=== PATIENT | male | born 1955 | race Caucasian/White ===

== ENCOUNTER 2019-09-26 01:25 | Inpatient (IN) | payer MEDICARE, OTHER, SELFPAY ==
[2019-09-26] VITALS (58 sets, daily range): BP systolic 77–156; BP diastolic 62–131; PULSE 85–166; RESP 13–36; TEMP 36–37.6; O2SAT 90–100; BMI 23.6; BMI 22.2
--- NOTE | 2019-09-26 01:32 | ED.RN ---
DR MCCOY ASKED FOR EKG, NO OLD EKGS IN MUSE
[2019-09-26] MEDS: Ipratropium/Albuterol Sulfate 3 ML AMPUL.NEB INHALATION ×6 (01:33→23:32)
--- NOTE | 2019-09-26 01:33 | EKG12_ITS ---
Test Reason : DYSRHYTHMIA Blood Pressure : / mmHG Vent. Rate : 158 BPM Atrial Rate : 158 BPM P-R Int : 136 ms QRS Dur : 078 ms QT Int : 322 ms P-R-T Axes : 079 105 083 degrees QTc Int : 522 ms Sinus tachycardia Indeterminate axis Pulmonary disease pattern Abnormal ECG Confirmed by NOELLE BUTT, NIELS ([id number]), story editor CHARBEL FALCON ([id number]) on 09/28/2019 9:31:22 AM Referred By: RAMEZ Confirmed By:MARLON DRAKE MD
--- NOTE | 2019-09-26 01:33 | RAD_ITS ---
STUDY: X-RAY CHEST REASON FOR EXAM: Male, 64 years old. Et and ogo tube placements TECHNIQUE: Single AP portable view of the chest. 2 images COMPARISON: None. FINDINGS: The endotracheal tube tip is 5.7 cm superior to the tee. The enteric tube tip on the first image is at the distal esophageal level, advanced into the body of the stomach with its tip and distal sidehole on image 2 time 0246 hours. Axillary surgical clips left. There is hyperinflation. Diffuse interstitial lung disease, areas of hyperinflation and airspace opacification in the lower lung parenchyma right greater than left. There is no demonstrated pleural abnormality. Normal size heart. Normal mediastinum and celeste. Normal visualized pulmonary arteries. There is atherosclerosis of the aortic arch. Age-appropriate thoracic spine. Normal visualized ribs, clavicles, and shoulders. There is no demonstrated abnormality of the visualized soft tissue structures of the upper abdomen. RAD/Chest 1 View (Portable) IMPRESSION: Lines in good position. Hyperinflation, chronic interstitial lung disease, superimposed inflammatory/infectious etiology off mid and lower lung parenchyma right greater than left lung. Electronically Signed: Amparo Bah MD at 3:17 EDT , Service support ,
[2019-09-26 01:48] LABS: Absolute Lymphocyte Count 9.03 X10^3/uL (0.83-4.51); Absolute Neutrophil Count 5.1 X10^3/uL (2.0-7.7); Basophil# 0.12 X10^3/uL; Basophil% 0.7 % (0-1); Eosinophil# 1.59 X10^3/uL; Eosinophils% 9.3 % (0-5); Hematocrit 54.1 % (40-54); Hemoglobin 16.9 g/dL (13.0-16.5); Lymphocyte # 9.03 X10^3/ul (4.0); Lymphocyte % 52.7 % (19-41); Mean Corp Hgb Conc 31.2 g/dL (32-36); Mean Corpuscular Hgb 28.5 pg (27.0-32.0); Mean Corpuscular Volume 91.2 fL (80-94); Mean Platelet Vol. 9.9 fl (6.2-12.0); Monocyte% 6.4 % (0-10); NRBC Flagged by Analyzer 0 % (0-5); Neutrophil # 5.09 X10^3/uL (2.7-7.7); Neutrophil % 29.7 % (47-70); POSITIVE DIFFERENTIAL YES; POSITIVE MORPHOLOGY YES; Platelet Count 249 K/mm3 (150-450); RBC Distribution Width SD 49.9 fl (35.1-43.9); Red Blood Count 5.93 M/mm3 (4.6-6.2); White Blood Count 17.1 K/mm3 (4.4-11.0)
[2019-09-26] MEDS: MethylPREDNISolone 125 MG/2 ML Vial IV (01:55)
[2019-09-26 01:56] LABS: Differential Indicated SCAN CRITERIA MET
[2019-09-26] MEDS: Succinylcholine Chloride 200 MG/10 ML Vial 100 MG IV (01:57)
[2019-09-26] MEDS: fentaNYL 100 MCG/2 ML Ampul 50 MCG IV (02:04)
[2019-09-26] MEDS: fentaNYL drip 100 ML 5 MCG IV (02:04)
--- NOTE | 2019-09-26 02:10 | ED.RN ---
Updated Pat Robbins, PTs daughter who is POA update on pt and sent her to registration.
[2019-09-26 02:18] LABS: Platelet Estimate ADEQUATE (ADEQ); Red Cell Morphology N CHROM NORMAL (NORM C&C)
[2019-09-26 02:19] LABS: Anion Gap 7 (5-15); Anisocytosis RARE; BUN 28 mg/dL (7-18); BUN/Creat Ratio 25.7 RATIO (10-20); Calcium,Total 8.9 mg/dL (8.5-10.1); Chloride 107 mmol/L (98-107); Creatinine, Serum 1.09 mg/dL (0.70-1.30); EST Glomerular Filtration Rate 72 mL/min (>60); Est Glom Filt Rate - Afr Amer 87 mL/min (>60); Estimated Creatinine Clearance 69.76 ml/min; Glucose 252 mg/dL (74-106); Macrocytosis RARE; Potassium 4.7 mmol/L (3.5-5.1); Sodium Level 140 mmol/L (136-145)
[2019-09-26 02:20] LABS: Lactic Acid 3.7 mmol/L (0.4-1.9)
[2019-09-26] MEDS: HYDROmorphone 1 MG/ML Syringe 2 MG IV (02:25)
--- NOTE | 2019-09-26 02:29 | ED.RN ---
CALLED [facility] TO NOTIFY OF THE NEED FOR ADMISSION, SPOKE TO EDILBERTO IN BED CONTROL. SHE REQUESTED REPORT BE FAXED WHEN DONE.
[2019-09-26] MEDS: Propofol 10MG/Ml 1,000 MG/100 ML Bottle 4.5 MG CONT INF (02:42)
--- NOTE | 2019-09-26 02:51 | ED.DCSUM_ITS ---
- ER Visit Summary Date of Service: 09/26/19 Chief Complaint: Shortness of breath History of Present Illness: The patient is a 64 M who goes to the [facility]. He reports that he lives in [place], but he has been in [place] visiting his daughter for the past 3 to 4 days. He denies sick contacts. He reports he has a cough productive of clear sputum for the past week. He denies any fever or chills. He reports he has shortness of breath that began today. He states that it is severe. He also complains of generalized weakness. Patient has a history of COPD., But has never been this bad before. He is not on home O2. When EMS arrived to pick him up his pulse ox was 60% on room air. States that he quit smoking 1 month ago. Physical Examination: Vitals: 96.8, 156/96, 163, 36, 95% on a nonrebreather. General: Well-nourished and well-developed. Head: Normocephalic atraumatic. Neck: Supple, no lymphadenopathy. No JVD. Nontender. Cardiovascular: Tachycardic regular rhythm. No murmurs. Respiratory: Severe respiratory distress. Wheezing bilaterally with greatly dec reased air movement. Abdominal: Soft, nontender, nondistended, normal bowel sounds. No guarding, rebound, or peritoneal signs. Back: Nontender. Extremities: Nontender, no edema. Skin: Normal color, no rash. Neurologic: Alert and oriented ?3. Cranial nerves II through XII are intact. Normal strength and sensation. Psych: Normal affect. Test Results: EKG is sinus tach at [address] changes. Chest x-ray shows bilateral infiltrates concerning for COVID-19, ET tube is in place. CBC shows a white count of 17.1 with 30 segmented neutrophils, 9 eosinophils, and 53 lymphocytes. H&H is 16.9 and 54.1. Chem-7 shows a BUN of 28 and glucose 252. Lactic acid is 3.7. Influenza is negative. Troponin is 0.205. Emergency Department Course and Treatment: Patient was given albuterol and Atrovent aerosol and his pulse ox actually decreased to 85% on a nonrebreather. He does want to be full code. He was given ketamine and succinylcholine IV and was intubated on the first attempt. His pulse ox never went below 85%. He was then given more albuterol aerosols. He was given fentanyl and Dilaudid IV. He was given Rocephin and Zithromax IV. Following the intubation the patient's blood pressure dropped into the 70s systolic. He was started on Levophed and had a central line placed. He was not given a 30 cc/kg bolus because his chest x-ray is concerning for COVID-19. Treatment Plan: Patient was discussed with the [facility]. At this time they would like him to be admitted here. He was discussed with Dr. Graf. He will be admitted to the ICU for further evaluation and treatment. Disposition: Admitted in critical condition. Impression: 1. Respiratory failure. 2. Intubation by ED physician. 3. Suspected COVID-19 infection. 4. COPD. 5. Hypoxia. 6. Right internal jugular central line by ED physician. 7. Septic shock. 8. Critical care time 45 minutes. Procedure: The patient was prepped and draped in the usual sterile fashion. I wore a cap, gown, and mask. The right internal jugular was accessed under direct visualization with the site right. The vessel was accessed on the first attempt. The central line was then placed with Seldinger technique. Normal blood return and flush in all 3 ports. The patient tolerated it well. This note was generated with Snapstream dictation software. It may contain incorrect words, spelling, and punctuation that were not noted in review of the chart prior to signing ED Disposition - Plan for ED Patient: [facility]errals: [facility] [Primary Care Provider] -
--- NOTE | 2019-09-26 03:05 | ED.RN ---
REQUESTED REPORT FAXED TO EDILBERTO AT THE [facility]
[2019-09-26 03:13] LABS: International Normalized Ratio 1.1; Prothrombin Time (Protime)PT. 13.3 SECONDS (11.7-14.9)
--- NOTE | 2019-09-26 03:14 | CPS ---
Pt intubated using glidoscope, then put directly on vent, did not bag pt.
[2019-09-26 03:15] LABS: Partial Thromboplast Time 29.1 Seconds (24.1-36.2)
[2019-09-26 03:21] LABS: AST(SGOT) 106 U/L (15-37); Alanine Aminotransfer ALT/SGPT 106 U/L (16-61); Albumin, Serum 4.1 g/dL (3.2-5.0); Alkaline Phosphatase 202 U/L (45-117); Bilirubin, Direct 0.19 mg/dL (0.00-0.30); Protein, Total 8.1 g/dL (6.4-8.2)
[2019-09-26 03:28] LABS: Bacteria 0 SEEN /hpf (None Seen); Glucose, Dipstick Normal (Normal); Ketone-Dipstick Negative (Negative); Leukocyte Esterase-Dipstick Negative /ul (Negative); Mucous, Urine 0 SEEN /hpf (<or=2+); Nitrite-Dipstick Negative (Negative); Occult Blood-Urine 150 /ul (Negative); Protein-Dipstick 500 mg/dl (Negative); Specific Gravity, Urine 1.025 (1.002-1.030); Squamous Epithelial Cells - UA 0 SEEN /hpf (0-5); Urine Bilirubin Dipstick Negative (Negative); Urine Urobilinogen 1 mg/dl (Normal)
[2019-09-26 03:30] LABS: Color, Urine Yellow (Yellow); Urine Clarity Sl Cldy (Clear)
--- NOTE | 2019-09-26 03:36 | RAD_ITS ---
STUDY: X-RAY CHEST REASON FOR EXAM: Male, 64 years old. Line placement TECHNIQUE: Single AP portable view of the chest. COMPARISON: September 26, 2019 FINDINGS: Endotracheal tube is approximately 5 cm superior to the tee. The enteric tube courses inferior to the left diaphragm, its tip is not included or visualized. Interval placement of right internal jugular venous access catheter with tip over the superior vena cava position. There is no demonstrated pneumothorax. Right greater than left interstitial opacification, areas of hyperinflation. More dense airspace disease in the right medial lung base persists. There is no demonstrated pleural abnormality. Normal size heart. Normal mediastinum and celeste. Normal visualized pulmonary arteries. Normal visualized aortic arch and descending thoracic aorta. Age-appropriate thoracic spine. There are degenerative changes of the acromioclavicular joints. There is no demonstrated abnormality of the visualized soft tissue structures of the upper abdomen. RAD/CXR for Line Placement IMPRESSION: Lines in good position. Right greater than left airspace disease superimposed on chronic interstitial lung disease and component of COPD. Electronically Signed: Amparo Bah MD at 4:46 EDT , Service support ,
[2019-09-26 03:37] LABS: Coarse Granular Cast 0-5 SEEN /lpf (0-5 /lpf); Fine Granular Cast- Urine 0-5 SEEN /lpf (0-5); Hyaline Cast 5-10 SEEN /lpf (0-5)
[2019-09-26 03:38] LABS: Amorphous Sediment 1+; Red Blood Cells-Urine 10-25 SEEN /hpf (0-5); White Blood Cells 0-5 SEEN /hpf (0-5)
--- NOTE | 2019-09-26 04:18 | PCM.HP.STD ---
Problem List (1) Septic shock Status: Acute (2) Acute respiratory failure with hypoxia Status: Acute (3) Suspected 2019 novel coronavirus infection Status: Acute (4) Cardiac enzymes elevated Status: Acute (5) Transaminitis Status: Acute (6) Hyperglycemia Status: Acute (7) CAD (coronary artery disease) Status: Chronic Qualifiers: Coronary Disease-Associated Artery/Lesion type: unspecified vessel or lesion type [place] vs. transplanted heart: unspecified whether [place] or transplanted heart Associated angina: angina presence unspecified Qualified Code(s): I25.10 - Atherosclerotic heart disease of [place] coronary artery without angina pectoris (8) HTN (hypertension) Status: Chronic Qualifiers: Hypertension type: essential hypertension Qualified Code(s): I10 - Essential (primary) hypertension (9) HLD (hyperlipidemia) Status: Chronic Qualifiers: Hyperlipidemia type: unspecified Qualified Code(s): E78.5 - Hyperlipidemia, unspecified (10) CLL (chronic lymphocytic leukemia) Status: Chronic (11) Former tobacco use Status: Chronic (12) History of alcohol abuse Status: Chronic History of Present Illness Date of Admission: 09/26/19 Chief Complaint: Cough, dyspnea The patient is a 64 y/o M w/ PMHx: Chronic COPD, Former Tobacco use, CAD s/p PCI x 1, HTN, HLD, CLL who presents to the [facility] ED on 09/26/19 with history of ongoing cough with only clear sputum over the last week with no specific fevers or chills but dyspnea progressively worsening and more severe on day of ED presentation with increased generalized weakness and fatigue, currently visiting his daughter in [place] over the last 3 to 4 days noted to be very hypoxic at 60% on room air upon EMS initial evaluation. Per discussion with daughter patient was hospitalized approximately 1 month prior and at that time had been intubated for at least 2 to 3 days with bilateral pneumonia. On evening prior to day of ED presentation, daughter noted that her father had been very dyspneic and she initially felt this was possibly a panic attack which she has a history of however it was ongoing for at least 40 minutes prompting eventual call to EMS. In the ED work-up included T 96.8, heart rate initially 163, BP 156/131, 36 respiratory rate 36, 95% on a nonrebreather with eventual intubation with repeat blood pressure prior to admission 80/66 requiring initiation of pressor therapy CBC with WBC 17.1, hemoglobin 16.9, platelet 249 with left shift, unremarkable coags, CMP with BUN/creatinine 28/1.09, glucose 252, lactic acid 3.7, AST/ALT 106/106, alk phos 202, troponin 0.205, urinalysis with specific gravity 1.025, protein 500, occult blood 150, RBC 10-25, 0 urine bacteria, blood culture x2 pending per ED, rapid influenza negative, respiratory viral panel pending, chest x-ray with hyperinflation with chronic interstitial lung disease superimposed on inflammatory/infectious etiology of mid and lower lung parenchyma right greater than left per ED. in the ED patient ministered succinylcholine, Solu-Medrol 125 mg IV x1, ketamine, Dilaudid, fentanyl, DuoNeb and albuterol therapies initiation of propofol and norepinephrine in addition to administration of azithromycin. Past Medical History Past Medical History (Chronic Problems): Chronic Problems CAD (coronary artery disease) (Chronic) HTN (hypertension) (Chronic) HLD (hyperlipidemia) (Chronic) CLL (chronic lymphocytic leukemia) (Chronic) Former tobacco use (Chronic) History of alcohol abuse (Chronic) Allergies Iodine and Iodide Containing Produc Allergy (Verified 09/26/19 01:26) Angioedema Home Medications: Ambulatory Orders Medication Instructions Recorded Aspirin [Aspirin, Baby] 81 mg PO DAILY@0800 09/26/19 Atorvastatin Calcium 80 mg PO QHS 09/26/19 Clopidogrel Bisulfate [Plavix] 75 mg PO DAILY 09/26/19 Entecavir 0.5 mg PO DAILY 09/26/19 Metoprolol Succinate 25 mg PO DAILY 09/26/19 Penicillin Vk [Pen-Vee K , 500 mg PO 4X/DAY 09/26/19 V-Cillin K] Surgical History: - - PCI x1, dental surgery. Psychiatric History: Anxiety Lives: Spouse/ Significant Other - Patient lives in [place] with his ex-. Smoking Status: Former smoker - Patient quit cigarette tobacco usage approximately 1 month prior to current presentation. Tobacco Use: Non-smoker Alcohol: Sober - Patient has been sober x4 months. Drugs: None - *Family History Maternal History Items: - - Patient per daughter without any market maternal family history including heart disease, diabetes or cancer. Paternal History Items: Pulmonary Disease - Father with significant pulmonary history, COPD, tobacco concurrent usage. Review of Systems Constitutional: Reports: Malaise, Weakness, Fatigue. Denies: Anorexia, Chills, Fever, Weight Change HEENT: Denies: Head Aches, Sinus Congestion, Sinus Drainage Cardiovascular: Denies: Chest Pain, Palpitations Respiratory: Reports: Cough, Shortness of Breath, Shortness of breath at rest, Shortness of breath upon exertion, Sputum production, Wheezing Gastrointestinal: Reports: Nausea. Denies: Abdominal Pain, Vomiting Genitourinary: Denies: Dysuria Musculoskeletal: Reports: Joint Pain. Denies: Joint Tenderness Skin: Denies: Rash, Wounds Neurological: Denies: Numbness, Tingling, Focal weakness Psychiatric: Reports: Anxiety. Denies: Depression, Homicidal Ideations, Suicidal Ideations Hematologic/ Lymphatic: Denies: Easy Bruising, Easy Bleeding VTE Information - Inpt Only VTE Present on Admission: No VTE Mechan Device Prophylaxis: SCD's VTE Pharm Prophylaxis ordered?: Yes Patient Problems: Active and Suspected Problems Septic shock (Acute) Acute respiratory failure with hypoxia (Acute) Suspected 2019 novel coronavirus infection (Acute) Cardiac enzymes elevated (Acute) Transaminitis (Acute) Hyperglycemia (Acute) Subjective: Patient intubated, sedated, seated upright in the ED bed, no acute distress currently. Objective: Physical Examination: General: Sedated, intubated, no acute distress currently, maintained in the ED. Skin: normal color, turgor, no icterus, cyanosis except bilateral lower extremity skin changes, possibly scarring. HEENT: AT/NC, EOM unable to be assessed, PERRLA, dry MM, intubated, no carotid bruits or JVD noted. Lungs: Diminished breath sounds throughout, greater bilateral bases, intubated, sedated, occasional end expiratory wheeze although very minimal, no obvious rhonchi or rales. Heart: Tachycardic with regular rhythm; no gallop, rub audible. Abdomen: soft, NTTP, ND, normal BS, no HSM. Extremities: no cyanosis, clubbing, or edema. Neurological: Patient intubated, sedated, not awake or alert, unable to answer any orientation questions, cognitive function is not his baseline; pupils equally reactive to light and accomodation; cranial nerves unable to be assessed well given intubated, sedated status, strength accordingly severely global decreased. Psychiatric: affect appears flat, lethargic, no acute evidence of depressive or anxiety feelings. - Physical Exam Vitals/I&O's: Vital Signs Temp Pulse Resp BP Pulse Ox 97.4 F L 130 H 18 109/89 H 98 09/26/19 04:00 09/26/19 04:18 09/26/19 04:18 09/26/19 04:18 09/26/19 04:18 Oxygen Delivery Method Mechanical Ventilator Weight: 164 lb 10.965 oz Body Mass Index (BMI) 23.6 Intake and Output for Last 24 Hours 09/24/19 09/25/19 09/26/19 23:59 23:59 23:59 Intake Total 57.53 / 57.53 Balance 57.53 / 57.53 Microbiology Past 72 Hours 09/26/19 01:40 Mucosa - Nasopharyngeal Influenza Types A,B Direct FA (TANVIR) - Final Laboratory Results 09/26/19 01:30: WBC 17.1 H, RBC 5.93, Hgb 16.9 H, Hct 54.1 H, MCV 91.2, MCH 28.5, MCHC 31.2 L, RDW Std Deviation 49.9 H, RDW Coeff of [place] 15.0 H, Plt Count 249, MPV 9.9, Immature Gran % (Auto) 1.200 H, Neut % (Auto) 29.7 L, Lymph % (Auto) 52.7 H, [place] % (Auto) 6.4, Eos % (Auto) 9.3 H, Baso % (Auto) 0.7, Absolute Neuts (auto) 5.1, Absolute Lymphs (auto) 9.03 H, Nucleated RBC % 0, Differential Comment SEE COMMENT, Diff Path Review May foll, Platelet Estimate ADEQUATE, RBC Morphology N CHROM, Anisocytosis RARE, Macrocytosis RARE 09/26/19 01:30: Sodium 140, Potassium 4.7, Chloride 107, Carbon Dioxide 26.0, Anion Gap 7, BUN 28 H, Creatinine 1.09, Estim Creat Clear Calc 69.76, Est GFR (MDRD) Af Amer 87, Est GFR (MDRD) Non-Af 72, BUN/Creatinine Ratio 25.7 H, Glucose 252 H, Calcium 8.9, Troponin I 0.205 H 09/26/19 01:30: Total Bilirubin 0.50, Direct Bilirubin 0.19, AST 106 H, ALT 106 H, Alkaline Phosphatase 202 H, Total Protein 8.1, Albumin 4.1, Globulin 4.0 09/26/19 01:30: PT 13.3, INR 1.1, APTT 29.1 09/26/19 01:32: Lactic Acid 3.7 H* 09/26/19 03:01: Urine Color Yellow, Urine Clarity Sl Cldy, Urine pH 6.0, Ur Specific [place] 1.025, Urine Protein 500 H, Urine Glucose (UA) Normal, Urine Ketones Negative, Urine Occult Blood 150 H, Urine Nitrite Negative, Urine Bilirubin Negative, Urine Urobilinogen 1 H, Ur Leukocyte Esterase Negative, Urine RBC 10-25 SEEN, Urine WBC 0-5 SEEN, Ur Squamous Epith Cells 0 SEEN, Amorphous Sediment 1+, Urine Bacteria 0 SEEN, Hyaline Casts 5-10 SEEN, Fine Granular Casts 0-5 SEEN, Coarse Granular Casts 0-5 SEEN, Urine Mucus 0 SEEN Current Medications Fentanyl () 100 mls @ 5 mls/hr IV UD MAGGIE; Protocol Last Titration: 09/26/19 03:28 Dose: 75 mcg/hr, 7.5 mls/hr Documented by: Propofol (Diprivan) 1,000 mg in 100 mls @ 4.482 mls/hr CONT INF .Q12H MAGGIE; Protocol Last Titration: 09/26/19 04:05 Dose: 10 mcg/kg/min, 4.5 mls/hr Documented by: Norepinephrine Bitartrate 8 mg (/ Sodium Chloride) 250 mls @ 9.375 mls/hr CONT INF .[id number] MAGGIE; Protocol Last Admin: 09/26/19 03:46 Dose: 5 mcg/min, 9.4 mls/hr Documented by: Assessment/Plan All Active Problems Septic shock (Acute) Acute respiratory failure with hypoxia (Acute) Suspected 2018 novel coronavirus infection (Acute) Cardiac enzymes elevated (Acute) Transaminitis (Acute) Hyperglycemia (Acute) The patient is a 64 y/o M w/ PMHx: Chronic COPD, Former Tobacco use, CAD s/p PCI x 1, HTN, HLD, CLL who presents to the [facility] ED on 09/26/19 with history of ongoing cough with only clear sputum over the last week with no specific fevers or chills but dyspnea progressively worsening and more severe on day of ED presentation with increased generalized weakness and fatigue, currently visiting his daughter in [place] over the last 3 to 4 days noted to be very hypoxic at 60% on room air upon EMS initial evaluation. 1. Acute Septic Shock secondary to Acute Dyspnea, Cough with Bilateral Pneumonia secondary to Suspected Acute Viral Syndrome, COVID-19 complicated by Acute on Chronic COPD Exacerbation: Will admit to the the ICU, continue ICU consultation, maintain intubated, sedated status, continue MDI Atrovent and Albuterol, maintain on IV vancomycin and Zosyn given recent hospitalization with intubation with MRSA screen with de-escalation off antibiotic therapy if appropriate, HOB, IS parameters w/ pending sputum cultures and urine antigens as well as respiratory panel pending per ED, will obtain procalcitonin, CRP, CPK, Ferritin, LDH, EKG w/ sinus tachycardia nonspecific ST changes and trop 0.205 thus cycle cardiac enzymes, repeat EKG in AM consideration for echocardiogram pending trend with therapeutic Lovenox, continue supportive care including q 2 hour turning including prone given no prone bed availability and judicious hydration, closely monitor for worsening status for ARDS and multiorgan failure, if negative respiratory viral panel would plan to obtain COVID-19 testing and if worsening status would consider initiation of hydroxychloroquine with close EKG monitoring for QT prolongation with trending of the liver functions. Bld cx x 2 obtained in the ED. 2. Indeterminate cardiac enzymes, likely secondary to acute presentation #1, will maintain on cardiac telemetry, trend cardiac enzymes, repeat EKG as needed, consider echocardiogram especially given underlying cardiac history, maintain on aspirin, therapeutic lovenox pending cardiac trending. 3. Transaminitis: Admission AST/ALT 106/106, alk phos 202, likely secondary to #1, will trend CMP. 4. Hyperglycemia with unclear diabetes mellitus type 2 history: Admission glucose 252, unclear if diabetic, will obtain hemoglobin A1c and in interim we will maintain on every 6 hours Accu-Cheks with insulin sliding scale. 5. CAD: Status post PCI, will continue patient home aspirin, Plavix, holding metoprolol given Potenza presentation. 6. Hypertension: Holding patient regimen given hypotension, maintained on pressor therapy. 7. Hyperlipidemia: Continue home statin regimen. 8. CLL: We will continue patient home entecavir regimen. 9. Tobacco Abuse: Encouraged to need tobacco cessation, quit approximately 1 month prior. 10. DVT prophylaxis: SCDs, Lovenox. 11. CODE status: Patient HCPLEENA is his daughter who lives in [place] and living will is currently in place. Discussed CODE status at length including difference between FULL code, DNR-CCA and DNR-CC status. Following discussions about the differences in these status, requested continuation of full CODE STATUS now however she notes that if he declines she would prefer to transition to DNR CC status. Advanced Care Planning Face to Face Time: 16 minutes. Inpatient E&M: 82872 Init Hosp L3 Procedures: 55279 Advncd Care Plan 30 Min
[2019-09-26 05:41] LABS: Reflex Lactate? Y
[2019-09-26 05:50] LABS: Blood Gas Specimen Type ART; SITE L RADIAL
[2019-09-26 05:51] LABS: Allen Test POS; Mode A-C; O2 Delivery Device Vent; RR 16; Vt 400
[2019-09-26 05:52] LABS: FI02 100; PEEP 5; PO2 218 mmHG (75-100); Time Given 352; pCO2 78.7 mmHg (35-45); pH 7.13 (7.35-7.45)
[2019-09-26 05:53] LABS: Base Excess -3 mmol/L (-2 to +2); Bicarbonate 26.4 mmol/L (22-26); SO2 99 % (95-99); Total Carbon Dioxide 29 mmol/L
[2019-09-26] MEDS: 0.9% Saline Lock 10 ML Syringe IV ×3 (06:08→09:54)
[2019-09-26] MEDS: Enoxaparin 80 MG/0.8 ML Syringe 70 MG SC ×2 (06:08→20:50)
--- NOTE | 2019-09-26 06:13 | PCM.CON.CC ---
Reason for Consult Date of Consultation: 09/26/19 Reason for Consultation: Acute combined respiratory failure History of Present Illness: The patient is a 64-year-old male, with a history as outlined below, who presented to the emergency department on September 25 with complaints of shortness of breath, cough, generalized malaise and weakness, fatigue and hypoxemia. The patient is regularly followed through the [facility] system. He apparently has an established diagnosis of COPD of unknown severity, tobacco dependency which is currently in remission, coronary artery disease status post prior PCI, hepatitis B, hypertension, hyperlipidemia and CLL. Per discussion with the admitting hospitalist, the patient was admitted to a [facility] 1 month ago, during which time, he was intubated for a short period of time due to bilateral pneumonia. The patient has not on home supplemental oxygen at his baseline. On presentation to the emergency department, the patient was initially noted to be afebrile, but was tachycardic, tachypneic and hypoxemic. Laboratory evaluation revealed an elevated white blood cell count to 17,000. Hemoglobin was elevated to 16.9 g/dL. The patient also had an elevated peripheral eosinophil count. Coagulation profile was within normal limits. Initial arterial blood gas obtained shortly after intubation revealed a pH of 7.13 with a corresponding PCO2 of 78 and PO2 of 218. Chemistry profile was largely unremarkable. Initial lactate was elevated to 3.7. AST and ALT were increased to 106. Initial troponin was elevated to 0.205. Plain film chest x-ray revealed evidence of bilateral airspace disease, which appeared to be superimposed on a background of chronic interstitial changes. The patient did require emergent intubation in the emergency department. He was noted to be hypotensive following intubation, which was likely secondary to the medications utilized for the procedure. The patient was placed on broad-spectrum antimicrobials and admitted to the medical intensive care unit for further management. Past Medical History Past Medical History (Chronic Problems): Chronic Problems CAD (coronary artery disease) (Chronic) HTN (hypertension) (Chronic) HLD (hyperlipidemia) (Chronic) CLL (chronic lymphocytic leukemia) (Chronic) Former tobacco use (Chronic) History of alcohol abuse (Chronic) Allergies Iodine and Iodide Containing Produc Allergy (Verified 09/26/19 01:26) Angioedema Home Medications: Ambulatory Orders Medication Instructions Recorded Aspirin [Aspirin, Baby] 81 mg PO DAILY@0800 09/26/19 Atorvastatin Calcium 80 mg PO QHS 09/26/19 Clopidogrel Bisulfate [Plavix] 75 mg PO DAILY 09/26/19 Entecavir 0.5 mg PO DAILY 09/26/19 Metoprolol Succinate 25 mg PO DAILY 09/26/19 Penicillin Vk [Pen-Vee K , 500 mg PO 4X/DAY 09/26/19 V-Cillin K] Surgical History: - - PCI x1, dental surgery. Psychiatric History: Anxiety Lives: Spouse/ Significant Other - Patient lives in [place] with his ex-. Smoking Status: Former smoker - Patient quit cigarette tobacco usage approximately 1 month prior to current presentation. Tobacco Use: Non-smoker Alcohol: Sober - Patient has been sober x4 months. Drugs: None - *Family History Maternal History Items: - - Patient per daughter without any market maternal family history including heart disease, diabetes or cancer. Paternal History Items: Pulmonary Disease - Father with significant pulmonary history, COPD, tobacco concurrent usage. Review of Systems Unable to obtain accurate/complete ROS d/t: Due to current intubation and mechanical ventilation status. Patient Problems: Active and Suspected Problems Septic shock (Acute) Acute respiratory failure with hypoxia (Acute) Suspected 2019 novel coronavirus infection (Acute) Cardiac enzymes elevated (Acute) Transaminitis (Acute) Hyperglycemia (Acute) Objective: The patient's most recent lab work, culture data and imaging studies have all been personally reviewed. Strep and urine Legionella antigens were negative. Respiratory viral panel was negative. - Physical Exam Vitals/I&O's: Vital Signs Temp Pulse Resp BP Pulse Ox 97.8 F 121 H 20 H 90/72 98 09/26/19 04:25 09/26/19 04:30 09/26/19 04:30 09/26/19 04:25 09/26/19 04:30 Oxygen Delivery Method Mechanical Ventilator Weight: 154 lb 15.759 oz Body Mass Index (BMI) 23.6 Intake and Output for Last 24 Hours 09/24/19 09/25/19 09/26/19 23:59 23:59 23:59 Intake Total 312.53 / 312.53 Balance 312.53 / 312.53 General: - - Intubated, sedated and mechanically ventilated. No ventilator dyssynchrony. HEENT: Atraumatic, PERRLA, Normocephalic Oral: No Gingival or Mucosal Lesions/ Ulcerations, - - Endotracheal and OG tubes in place Neck: Supple, No Nodes, Trachea Midline, - - Right IJ central venous catheter in place Lungs: No rhonchi, No wheeze, No rales, Diminished Cardiovascular: Regular rate, Regular Rhythm, Normal S1, Normal S2, No murmurs Abdomen: Bowel Sounds Present, Soft, Non Tender Extremities: No clubbing, No cyanosis, No edema Skin: No breakdown Musculoskeletal: No Muscle Wasting Lymphatic: No Cervical, Supraclavicular, or Inguinal Adenopathy Neurological: - - No focal neurological deficits. The patient is currently sedated with a RASS of -1. Labs (Last 48 Hours) 09/26/19 09/26/19 09/26/19 01:30 01:30 01:30 WBC 17.1 H RBC 5.93 Hgb 16.9 H Hct 54.1 H MCV 91.2 MCH 28.5 MCHC 31.2 L RDW Std Deviation 49.9 H RDW Coeff of [place] 15.0 H Plt Count 249 MPV 9.9 Immature Gran % (Auto) 1.200 H Neut % (Auto) 29.7 L Lymph % (Auto) 52.7 H [place] % (Auto) 6.4 Eos % (Auto) 9.3 H Baso % (Auto) 0.7 Absolute Neuts (auto) 5.1 Absolute Lymphs (auto) 9.03 H Nucleated RBC % 0 Differential Comment SEE COMMENT Diff Path Review May foll Platelet Estimate ADEQUATE RBC Morphology N CHROM Anisocytosis RARE Macrocytosis RARE PT INR APTT Specimen Type Sample Site pH Bicarbonate Actual POC Total CO2 Base Excess O2 Saturation O2 % ABG pCO2 ABG pO2 Jayesh Test Respiration Rate O2 Delivery Device Vent Mode Tidal Volume POC PEEP Blood Gas Notified Whom Blood Gas Notified Time Sodium 140 Potassium 4.7 Chloride 107 Carbon Dioxide 26.0 Anion Gap 7 BUN 28 H Creatinine 1.09 Estim Creat Clear Calc 69.76 Est GFR (MDRD) Af Amer 87 Est GFR (MDRD) Non-Af 72 BUN/Creatinine Ratio 25.7 H Glucose 252 H Lactic Acid Calcium 8.9 Magnesium Ferritin Total Bilirubin 0.50 Direct Bilirubin 0.19 AST 106 H ALT 106 H Alkaline Phosphatase 202 H Lactate Dehydrogenase Troponin I 0.205 H C-React Prot Ext Range Total Protein 8.1 Albumin 4.1 Globulin 4.0 Urine Color Urine Clarity Urine pH Ur Specific [place] Urine Protein Urine Glucose (UA) Urine Ketones Urine Occult Blood Urine Nitrite Urine Bilirubin Urine Urobilinogen Ur Leukocyte Esterase Urine RBC Urine WBC Ur Squamous Epith Cells Amorphous Sediment Urine Bacteria Hyaline Casts Fine Granular Casts Coarse Granular Casts Urine Mucus MRSA (PCR) 09/26/19 09/26/19 09/26/19 01:30 01:32 03:01 WBC RBC Hgb Hct MCV MCH MCHC RDW Std Deviation RDW Coeff of [place] Plt Count MPV Immature Gran % (Auto) Neut % (Auto) Lymph % (Auto) [place] % (Auto) Eos % (Auto) Baso % (Auto) Absolute Neuts (auto) Absolute Lymphs (auto) Nucleated RBC % Differential Comment Diff Path Review Platelet Estimate RBC Morphology Anisocytosis Macrocytosis PT 13.3 INR 1.1 APTT 29.1 Specimen Type Sample Site pH Bicarbonate Actual POC Total CO2 Base Excess O2 Saturation O2 % ABG pCO2 ABG pO2 Jayesh Test Respiration Rate O2 Delivery Device Vent Mode Tidal Volume POC PEEP Blood Gas Notified Whom Blood Gas Notified Time Sodium Potassium Chloride Carbon Dioxide Anion Gap BUN Creatinine Estim Creat Clear Calc Est GFR (MDRD) Af Amer Est GFR (MDRD) Non-Af BUN/Creatinine Ratio Glucose Lactic Acid 3.7 H* Calcium Magnesium Ferritin Total Bilirubin Direct Bilirubin AST ALT Alkaline Phosphatase Lactate Dehydrogenase Troponin I C-React Prot Ext Range Total Protein Albumin Globulin Urine Color Yellow Urine Clarity Sl Cldy Urine pH 6.0 Ur Specific [place] 1.025 Urine Protein 500 H Urine Glucose (UA) Normal Urine Ketones Negative Urine Occult Blood 150 H Urine Nitrite Negative Urine Bilirubin Negative Urine Urobilinogen 1 H Ur Leukocyte Esterase Negative Urine RBC 10-25 SEEN Urine WBC 0-5 SEEN Ur Squamous Epith Cells 0 SEEN Amorphous Sediment 1+ Urine Bacteria 0 SEEN Hyaline Casts 5-10 SEEN Fine Granular Casts 0-5 SEEN Coarse Granular Casts 0-5 SEEN Urine Mucus 0 SEEN MRSA (PCR) 09/26/19 09/26/19 09/26/19 03:52 05:30 06:00 WBC RBC Hgb Hct MCV MCH MCHC RDW Std Deviation RDW Coeff of [place] Plt Count MPV Immature Gran % (Auto) Neut % (Auto) Lymph % (Auto) [place] % (Auto) Eos % (Auto) Baso % (Auto) Absolute Neuts (auto) Absolute Lymphs (auto) Nucleated RBC % Differential Comment Diff Path Review Platelet Estimate RBC Morphology Anisocytosis Macrocytosis PT INR APTT Specimen Type ART Sample Site L RADIAL pH 7.13 L* Bicarbonate Actual 26.4 H POC Total CO2 29 Base Excess -3 L O2 Saturation 99 O2 % 100 ABG pCO2 78.7 H* ABG pO2 218 H Jayesh Test POS Respiration Rate 16 O2 Delivery Device Vent Vent Mode A-C Tidal Volume 400 POC PEEP 5 Blood Gas Notified Whom ED MD Blood Gas Notified Time 352 Sodium Pending Potassium Pending Chloride Pending Carbon Dioxide Pending Anion Gap Pending BUN Pending Creatinine Pending Estim Creat Clear Calc Est GFR (MDRD) Af Amer Pending Est GFR (MDRD) Non-Af Pending BUN/Creatinine Ratio Pending Glucose Pending Lactic Acid Calcium Pending Magnesium Pending Ferritin Pending Total Bilirubin Pending Direct Bilirubin AST Pending ALT Pending Alkaline Phosphatase Pending Lactate Dehydrogenase Pending Troponin I Pending C-React Prot Ext Range Pending Total Protein Pending Albumin Pending Globulin Urine Color Urine Clarity Urine pH Ur Specific [place] Urine Protein Urine Glucose (UA) Urine Ketones Urine Occult Blood Urine Nitrite Urine Bilirubin Urine Urobilinogen Ur Leukocyte Esterase Urine RBC Urine WBC Ur Squamous Epith Cells Amorphous Sediment Urine Bacteria Hyaline Casts Fine Granular Casts Coarse Granular Casts Urine Mucus MRSA (PCR) Pending 09/26/19 06:00 WBC RBC Hgb Hct MCV MCH MCHC RDW Std Deviation RDW Coeff of [place] Plt Count MPV Immature Gran % (Auto) Neut % (Auto) Lymph % (Auto) [place] % (Auto) Eos % (Auto) Baso % (Auto) Absolute Neuts (auto) Absolute Lymphs (auto) Nucleated RBC % Differential Comment Diff Path Review Platelet Estimate RBC Morphology Anisocytosis Macrocytosis PT INR APTT Specimen Type Sample Site pH Bicarbonate Actual POC Total CO2 Base Excess O2 Saturation O2 % ABG pCO2 ABG pO2 Jayesh Test Respiration Rate O2 Delivery Device Vent Mode Tidal Volume POC PEEP Blood Gas Notified Whom Blood Gas Notified Time Sodium Potassium Chloride Carbon Dioxide Anion Gap BUN Creatinine Estim Creat Clear Calc Est GFR (MDRD) Af Amer Est GFR (MDRD) Non-Af BUN/Creatinine Ratio Glucose Lactic Acid Pending Calcium Magnesium Ferritin Total Bilirubin Direct Bilirubin AST ALT Alkaline Phosphatase Lactate Dehydrogenase Troponin I C-React Prot Ext Range Total Protein Albumin Globulin Urine Color Urine Clarity Urine pH Ur Specific [place] Urine Protein Urine Glucose (UA) Urine Ketones Urine Occult Blood Urine Nitrite Urine Bilirubin Urine Urobilinogen Ur Leukocyte Esterase Urine RBC Urine WBC Ur Squamous Epith Cells Amorphous Sediment Urine Bacteria Hyaline Casts Fine Granular Casts Coarse Granular Casts Urine Mucus MRSA (PCR) Microbiology 09/26/19 01:40 Mucosa - Nasopharyngeal Respiratory Panel (PCR) - Final 09/26/19 01:40 Mucosa - Nasopharyngeal Influenza Types A,B Direct FA (TANVIR) - Final Clinical Impression(s) from Imaging Studies Chest X-Ray 09/26/19 01:33 IMPRESSION: Lines in good position. Hyperinflation, chronic interstitial lung disease, superimposed inflammatory/infectious etiology off mid and lower lung parenchyma right greater than left lung. Electronically Signed: Amparo Bah MD at 3:17 EDT , Service support , Chest X-Ray 09/26/19 03:36 IMPRESSION: Lines in good position. Right greater than left airspace disease superimposed on chronic interstitial lung disease and component of COPD. Electronically Signed: Amparo Bah MD at 4:46 EDT , Service support , Current Medications Acetaminophen (Tylenol) 650 mg RECTAL Q4H PRN PRN PRN Reason: Pain Score 1-10/Temp > 100.7 F Acetaminophen (Tylenol) 650 mg PO Q6H PRN PRN PRN Reason: Pain Score 1-10/Temp > 100.7 F Albuterol Sulfate (Ventolin Aerosols) 2.5 mg INHALATION Q2H PRN PRN PRN Reason: Dyspnea, wheezing Albuterol/Ipratropium (Duoneb) 3 ml INHALATION Q4H.RT [facility] Aspirin (Aspirin, Baby) 81 mg PO DAILY@0800 [facility] Atorvastatin Calcium (Lipitor) 80 mg PO QHS [facility] Chlorhexidine Gluconate () 15 ml PO BID [facility] Clopidogrel Bisulfate (Plavix) 75 mg PO DAILY [facility] Dextrose (D50w Syringe) 0 gm IV X1 PRN; Protocol PRN Reason: Hypoglycemia Enoxaparin Sodium (Lovenox) 70 mg SC Q12@0600,1800 [facility] Last Admin: 09/26/19 06:08 Dose: 70 mg Documented by: Famotidine (Pepcid) 20 mg GT BID [facility] Glucagon () 1 mg IM .X1 PRN PRN Reason: Hypoglycemia Fentanyl () 100 mls @ 5 mls/hr IV UD [facility]; Protocol Last Titration: 09/26/19 03:28 Dose: 75 mcg/hr, 7.5 mls/hr Documented by: Propofol (Diprivan) 1,000 mg in 100 mls @ 4.482 mls/hr CONT INF .Q12H [facility]; Protocol Last Titration: 09/26/19 04:05 Dose: 10 mcg/kg/min, 4.5 mls/hr Documented by: Norepinephrine Bitartrate 8 mg (/ Sodium Chloride) 250 mls @ 9.375 mls/hr CONT INF .[id number] [facility]; Protocol Last Admin: 09/26/19 03:46 Dose: 5 mcg/min, 9.4 mls/hr Documented by: Vancomycin IV Pharmacy to Dose (1 ea/ Sodium Chloride) 500 mls @ 250 mls/hr IV PRN PRN; Protocol PRN Reason: Rx to Dose Vancomycin HCl 2,000 mg/ (Sodium Chloride) 540 mls @ 250 mls/hr IV X1 ONE Stop: 09/26/19 08:09 Sodium Chloride () 250 mls @ 15 mls/hr IV .[id number] PRN PRN Reason: Saline Flush Sodium Chloride () 250 mls @ 15 mls/hr IV .[id number] PRN PRN Reason: Additional IVPB Infusion Piperacillin Sod/Tazobactam (Sod 3.375 gm/ Sodium Chloride) 50 mls @ 12.5 mls/hr IV Q8@0200,1000,1800 [facility] Insulin Human Lispro (Humalog Kwikpen (Bkc)) 0 unit SC 0400,1000,1600,2200 [facility]; Protocol Magnesium Hydroxide (Milk Of Magnesia) 30 ml PO DAILY PRN PRN PRN Reason: Constipation Methylprednisolone (Solu-Medrol) 40 mg IV Q8@0200,1000,1800 [facility] Morphine Sulfate () 2 mg IV Q3H PRN PRN PRN Reason: Pain Score 6-10/10 Nitroglycerin (Nitrostat) 0.4 mg SUBLINGUAL Q5M PRN PRN Reason: CARDIAC/CHEST PAIN Non-Formulary Medication (Entecavir) 0.5 mg PO DAILY [facility] Ondansetron HCl (Zofran) 4 mg IV Q8H PRN PRN PRN Reason: NAUSEA/VOMITING Prochlorperazine Edisylate (Compazine Iv) 5 mg IV Q4H PRN PRN PRN Reason: Breakthrough Nausea/Vomiting Psyllium Hydrophilic Mucilloid (Metamucil) 1 packet PO DAILY PRN PRN PRN Reason: Constipation Senna/Docusate Sodium (Senokot-S, Helene-Colace) 2 tablet PO BID PRN PRN PRN Reason: Constipation Sodium Chloride () 10 - 40 ml IV UD PRN PRN Reason: SALINE FLUSH Last Admin: 09/26/19 06:08 Dose: 40 ml Documented by: Assessment/Plan Active and Suspected Problems Septic shock (Acute) Acute respiratory failure with hypoxia (Acute) Suspected 2019 novel coronavirus infection (Acute) Cardiac enzymes elevated (Acute) Transaminitis (Acute) Hyperglycemia (Acute) RECOMMENDATIONS: 1. Continue broad-spectrum antimicrobials. Await infectious diseases consultation. 2. Trend troponins and obtain echocardiogram. Cardiology consultation has been placed as well. 3. Augmentation of vent parameters to increase minute ventilation and offset CO2 retention. Obtain repeat arterial blood gas. 4. Place in coronavirus precautions and send COVID testing. 5. Wean FiO2 and PEEP to maintain oxygen saturations at or above 90%. 6. Continue scheduled bronchodilators and IV steroids. 7. Continue Lovenox and Pepcid for prophylaxis. IMPRESSIONS: 1. Acute combined respiratory failure The patient presented to the hospital with impending respiratory failure and was emergently intubated in the emergency department. He does have an apparent history of COPD of unknown severity. Chest x-ray did reveal findings of bilateral airspace disease with what is likely some chronic interstitial changes. The patient has been placed on appropriate broad-spectrum antimicrobials. Infectious work-up will be undertaken, including coronavirus testing. In the interim, the patient will be continued on scheduled bronchodilators and IV steroids. Ventilator parameters will be augmented to maximize minute ventilation to offset CO2 retention. Tube feeds can be initiated from my perspective. 2. Severe sepsis with concern for healthcare associated pneumonia and possible COVID 19 Infection The patient is documented hypotension was likely secondary to sedating medication administration. The patient is currently hemodynamically stable. Recommend conservative use of fluids over concerns for coronavirus. In addition, the patient has cardiac disease of unknown severity. As noted above, broad-spectrum antimicrobials will be continued. Infectious diseases consultation is also pending. 3. Non-ST segment elevation [place]/history of coronary artery disease status post past PCI Continue to trend troponins. Will obtain echocardiogram as well. Unclear cardiac history, so will attempt to obtain outside hospital medical records. Cardiology consultation has been obtained. 4. History of tobacco dependency, currently in remission/COPD/hepatitis B/CLL Complicates care, management, recovery and prognosis. Continue home medications as indicated. Start tube feeds today. TIME: 42 minutes of critical care time, independent of procedures, was spent addressing the patient's acute combined respiratory failure, severe sepsis, healthcare associated pneumonia, possible coronavirus infection, NSTEMI, review of all data and collaboration with the care team. [id number]) [phone] [id number] Critical care first hour
--- NOTE | 2019-09-26 06:28 | PCM.RX.CS ---
Consult Pharmacy has been consulted to manage selected antiobiotic: Vancomycin Type of Consult: New start Suspected Infection: Sepsis, Pneumonia Prior Doses of Antibiotics Received/Current Regimen: Medications Vancomycin HCl (Vancomycin) 1,000 mg in 200 mls @ 200 mls/hr IV Q12H MAGGIE Vancomycin HCl 2,000 mg/ (Sodium Chloride) 540 mls @ 250 mls/hr IV X1 ONE Stop: 09/26/19 08:09 Last Admin: 09/26/19 06:19 Dose: 250 mls/hr Microbiology: Microbiology 09/26/19 01:40 Mucosa - Nasopharyngeal Respiratory Panel (PCR) - Final 09/26/19 01:40 Mucosa - Nasopharyngeal Influenza Types A,B Direct FA (TANVIR) - Final Weight used for dosin.7 kg Estimated Creatinine Clearance: 70 Goal Trough: 15-20 mcg/mL Pharmacy Plan for Drug Dosing: Pharmacy Service will continue to monitor and adjust dosing as required. Follow-Up Labs: Trough Vancomycin Labs to be done on [date and time ordered]: 09/27/19 @9244
[2019-09-26 07:04] LABS: AST(SGOT) 102 U/L (15-37); Alanine Aminotransfer ALT/SGPT 106 U/L (16-61); Albumin, Serum 3.6 g/dL (3.2-5.0); Alkaline Phosphatase 149 U/L (45-117); Anion Gap 6 (5-15); BUN 32 mg/dL (7-18); BUN/Creat Ratio 32.2 RATIO (10-20); Calcium,Total 8.3 mg/dL (8.5-10.1); Chloride 110 mmol/L (98-107); Creatinine, Serum 0.99 mg/dL (0.70-1.30); EST Glomerular Filtration Rate 80 mL/min (>60); Est Glom Filt Rate - Afr Amer 97 mL/min (>60); Estimated Creatinine Clearance 73.97 ml/min; Ferritin 319 ng/mL (26-388); Globulin 3.6 g/dL (2.2-4.2); Glucose 164 mg/dL (74-106); LDH 310 U/L (87-241); Magnesium 2.3 mg/dL (1.6-2.6); Potassium 4.7 mmol/L (3.5-5.1); Protein, Total 7.2 g/dL (6.4-8.2); Sodium Level 141 mmol/L (136-145)
--- NOTE | 2019-09-26 07:12 | ECHOD_ITS ---
Reason For Study: DYSPNEA Procedure This was a 2D Doppler, Color Flow transthoracic echocardiogram. The study was technically difficult. TDS- Pt supine on vent . The study was technically limited. Exam performed portable in ICU/CCU. Left Ventricle Normal LV size. The estimated ejection fraction is 25-30 %. Stage 2 diastolic dysfunction. Hypokinesis of the inferior wall, lateral wall and basal septum. Right Ventricle Normal RV size. Normal systolic function. Atria Normal left atrium. Normal right atrium. No doppler evidence for ASD. Mitral Valve There is no mitral valve stenosis. Trivial mitral valve insufficiency. Tricuspid Valve There is no tricuspid stenosis. Trivial tricuspid valve insufficiency. Pulmonary artery systolic pressure is 35 mmHg. Aortic Valve Trisinus/trileaflet aortic valve. There is no aortic stenosis. No aortic valve insufficiency. Pulmonic Valve There is no pulmonic valvular stenosis. No pulmonic valve insufficiency. Great Vessels Normal aortic root. Pericardium/Pleural No pericardial effusion. MMode/2D Measurements & Calculations LVIDd: 5.4 cm IVSd: 0.63 cm LA dimension(2D): 2.7 cm LVIDs: 5.2 cm LVPWd: 0.79 cm RVDd: 3.2 cm FS: 5.1 % Doppler Measurements & Calculations PA V2 max: 69.4 cm/sec TR max sonia: 272.6 cm/sec TR max P.7 mmHg Interpretation Summary The estimated ejection fraction is 25-30 %. Stage 2 diastolic dysfunction. Hypokinesis of the inferior wall, lateral wall and basal septum. Trivial mitral valve insufficiency. Trivial tricuspid valve insufficiency. Ordering Physician: Sanchez Ramirez Referring Physician: [facility] Performed By: Chelly Lantigua, RDCS, RVT
--- NOTE | 2019-09-26 07:15 | EKG12_ITS ---
Test Reason : QTC MONITORING Blood Pressure : / mmHG Vent. Rate : 111 BPM Atrial Rate : 111 BPM P-R Int : 140 ms QRS Dur : 074 ms QT Int : 336 ms P-R-T Axes : 076 257 054 degrees QTc Int : 456 ms Sinus tachycardia Low voltage QRS Borderline ECG When compared with ECG of 26-SEP-2019 07:43, MANUAL COMPARISON REQUIRED, DATA IS UNCONFIRMED Confirmed by NOELLE BUTT, NIELS ([id number]), restaurant expeditor CHARBEL FALCON ([id number]) on 09/28/2019 9:37:56 AM Referred By: HENRRY Confirmed By:MARLON DRAKE MD
--- NOTE | 2019-09-26 07:43 | EKG12_ITS ---
Test Reason : QTC MONITORING Blood Pressure : / mmHG Vent. Rate : 111 BPM Atrial Rate : 111 BPM P-R Int : 142 ms QRS Dur : 072 ms QT Int : 336 ms P-R-T Axes : 072 257 055 degrees QTc Int : 456 ms Sinus tachycardia Low voltage QRS Borderline ECG When compared with ECG of 26-SEP-2019 01:37, MANUAL COMPARISON REQUIRED, DATA IS UNCONFIRMED Confirmed by NOELLE BUTT, NIELS ([id number]), business editor CHARBEL FALCON ([id number]) on 09/28/2019 9:44:13 AM Referred By: HENRRY Confirmed By:MARLON DRAKE MD
[2019-09-26 08:46] LABS: Base Excess -2 mmol/L (-2 to +2); Bicarbonate 24.7 mmol/L (22-26); PO2 70 mmHG (75-100); SO2 91 % (95-99); Total Carbon Dioxide 26 mmol/L; pCO2 52.2 mmHg (35-45); pH 7.28 (7.35-7.45)
[2019-09-26 08:46] LABS: Base Excess -1 mmol/L (-2 to +2); Bicarbonate 26.5 mmol/L (22-26); PO2 263 mmHG (75-100); SO2 100 % (95-99); Total Carbon Dioxide 28 mmol/L; pCO2 64.6 mmHg (35-45); pH 7.22 (7.35-7.45)
[2019-09-26 09:51] LABS: Bedside Glucose 171 mg/dL (70-110)
[2019-09-26] MEDS: Insulin Lispro 100 UNIT/ML INSULN.PEN SC ×2 (09:54→20:51)
[2019-09-26] MEDS: Aspirin 81 MG TAB.CHEW PO (09:55)
[2019-09-26] MEDS: Chlorhexidine 15 ML PO ×2 (09:55→20:50)
[2019-09-26] MEDS: Famotidine 20 MG Tablet GT ×2 (09:55→20:50)
[2019-09-26] MEDS: Clopidogrel Bisulfate 75 MG Tablet PO (09:55)
[2019-09-26 10:33] LABS: Hemoglobin A1c 5.4 % (4.2-6.3)
[2019-09-26 10:41] LABS: Bedside Glucose 160 mg/dL (70-110)
[2019-09-26 10:42] LABS: Blood Gas Specimen Type ART
[2019-09-26 10:43] LABS: PEEP 8; RR 20; Time Given 604; Vt 450
[2019-09-26 10:44] LABS: FI02 60
[2019-09-26 10:45] LABS: O2 Delivery Device Vent
[2019-09-26 10:47] LABS: Blood Gas Specimen Type ART
[2019-09-26 10:48] LABS: Mode A-C; O2 Delivery Device Vent; SITE L RADIAL
[2019-09-26 10:49] LABS: FI02 50; PEEP 8; RR 14; Vt 450
[2019-09-26 10:53] LABS: Pathologist Review Reviewed
--- NOTE | 2019-09-26 11:00 | CASEMGMT ---
Addendum entered by Paul Breaux 09/26/19 12:41: Dr Turner and Dr Ramirez both made aware pt's daughter would like pt to be transferred to [facility] if bed becomes available and if they are able to accept pt. They were made aware COVID-19 results would need to be back before [facility] will make decision if they are able to accept pt for transfer. Original Note: SHANIKA SINGH ASSESSMENT COVID-19 suspected. Test sent. Results pending. Call placed to pt's daughter, Pat, and assessment completed with her via phone. Care providers, pharmacy, and demographics verified/updated at this time. PCP: [facility] Specialists: Oncologist, medical director occupational health, steam plant operator, and dentist--all @ [facility] Preferred Pharmacy: [facility] for any new meds @ d/c. Gets all of his medications through [place] Insurance: [facility] A [facility] B, [place] benefits. Daughter states he just recently got on SHARATH and that she gave all this information to registration. [facility] is not showing up as being [facility]. After call with Pat completed, SHANIKA SINGH placed call to Zulema in [facility]. She states pt is not showing as eligible for SHARATH as of today, but there may be a delay in the verification process. Call placed back to Pat and she was informed of this. Pat made aware she can call [facility] if she has further questions and phone number for [facility] was provided to her. She voices appreciation. Prescription Benefit: VA only. Living Will/HPOA: Pat states pt has both LW and Healthcare POA and that she is pt's POA. She states she has copies of this paperwork and will try to bring in at a later time. LNOK: Has one daughter, Pat/POMessi. Living Arrangements: Pt lives with his ex- in a 2-story [place]. Dtr states has FFSU and pt does not use the 2nd story. Pt ambulated indepdently and Independent w/ADL's and IADL's prior to recent.illness. Dtr states pt was recenlty hospitalized about a month ago @ [facility] and that he has not been wanting to be alone and has been having panic attacks recently. Dtr states she would prefer, if pt able to be d/c'd home for him to go to her home so she can help take care of pt. This decision, though, is dependent upon COVID-19 results, as she has 3 children in her home, though, ages 11, 10, and 8. Her [facility] is also [facility]. Transportation: Pt does not have a vehicle. Either his ex- or his dtr provides transportation. DME: Has a nebulizer that he uses. Ambulates independently although he does have a walker available if needed. Does not have Home O2. If needs Oxygen or other DME @ discharge, dtr prefers [facility]. HHC/SNF: No history of either. Dtr states if pt is able to be discharged to her home, that she would be agreeable to HHC if needed/recommended. Pt wishes to return home and states has no concerns with going home at time of discharge. Pt states does not smoke or drink ETOH. CM to follow for home oxygen needs and any further discharge planning/needs. Pt voices no further concerns/needs at this time. Advised pt to ask for CM if any further questions/concerns/needs arise. Voices understanding. PLAN: TBD. If bed becomes available @ [facility], Pat would like pt transferred to [facility]. SHANIKA CM placed call to [facility]/Transfer center line and spoke with Shilpi, ext [phone]. She confirms she has received clinical information on this pt today. She was made aware that pt's daughter would like pt to be transferred to [facility], if possible. Shilpi aware COVID-19 results are pending. She states she will not be able to do anything further with decision of transferring pt until COVID-19 results are back. CM to follow and to contact Shilpi once COVID-19 results have resulted to discuss if pt can be transferred. If pt is not transferred to [facility], Pat states prefers for pt to be discharged home to her home @ d/c, if able, where she can help to take care of pt. Pt to have PT/OT evals completed once medically able, to evaluate pt's needs and plan for a safe discharge. CM to follow and discuss with pt his wishes, as well, once he is extubated. Discharging to daughters home would also be dependent upon COVID-19 results, as she has 3 children in her home. Daughter also inquiring about information re: Meals on Wheels for pt. Etelvina MCINTYRE, made aware. Jann DEWITTN RN CM
--- NOTE | 2019-09-26 11:32 | CASEMGMT ---
Social Work Note RN CM updated this worker that pt's daughter Pat would like information on Meals on Wheels for pt. Pt currently intubated, COVID test is pending. SW will provide information to pt and pt's daughter once pt is closer to being discharged. Philomena Aguillon SOCCER REFEREE, SEGMENTAL WALL INSTALLER
[2019-09-26] MEDS: fentaNYL drip 100 ML 10 MCG IV ×2 (11:35→23:22)
[2019-09-26 11:59] LABS: M R Staph aureus DNA By PCR Negative (Negative); Probe Check PASS; Specimen Processing Control PASS
--- NOTE | 2019-09-26 12:03 | CT_ITS ---
STUDY: CTA CHEST REASON FOR EXAM: Male, 64 years old. HYPOXIC RESP FAILURE SUSPECTED COVID RADIATION DOSAGE (If Supplied By Facility): CTDIvol = ( 15.61 ) mGy, DLP = ( 463.01 ) mGycm TECHNIQUE: The examination was performed with the intravenous administration of 100CC OPTI 350. Post-processing of the angiographic images was performed, with multiplanar reformation and 3D reconstruction. Individualized dose optimization techniques were used for this CT. COMPARISON: Comparison is made with prior chest radiograph from earlier in the day. FINDINGS: An endotracheal tube is seen. An orogastric tube is present with the tip in the body of the stomach. Normal enhancement of the main pulmonary artery and right and left pulmonary arteries. Normal enhancement of the bilateral peripheral pulmonary arteries. There is no demonstrated pulmonary embolism. Normal thoracic aorta and visualized great vessels. There is no demonstrated aortic dissection. Normal heart and pericardium. Normal mediastinum. Normal hilar regions. Normal visualized trachea and bronchi. The lungs are well expanded. Mild degree of emphysematous changes. Infiltration with airspace disease in the posterior segment of the right upper lobe as well as in the medial aspect of the left upper lobe. Consolidation in the lower lobes worse on the right side with minimal pleural effusions. Normal pleura. Normal chest wall structures. There are degenerative changes of thoracic spine. Normal visualized upper abdomen. CT/CTA Chest W/WO Contrast IMPRESSION: Bibasilar consolidation more prominent in the right lower lobe with minimal pleural effusions. Emphysematous changes with infiltrates in the posterior aspect of the right upper lobe as well as in the medial aspect of the left upper lobe. No evidence of pulmonary embolism. Electronically Signed: Justin Love, at 14:24 EDT , Service support ,
--- NOTE | 2019-09-26 13:04 | PCM.HP.ID ---
Reason for Consult: septic shock Consulted by: Dr. Ramirez History of Present Illness: The patient is a 64 year old M with CLL, htn, presented yesterday to ED with sudden hypoxia. Had been having cough, not feeling well reportedly for past week. No fevers per chart. Sats were in the 60s, EMS called, admitted on vanc/zosyn to the ICU on the vent. No fever overnight. ROS unobtainable due to intubation. - Medical History Past Medical History (Chronic Problems): Chronic Problems CAD (coronary artery disease) (Chronic) HTN (hypertension) (Chronic) HLD (hyperlipidemia) (Chronic) CLL (chronic lymphocytic leukemia) (Chronic) Former tobacco use (Chronic) History of alcohol abuse (Chronic) Allergies/Adverse Reactions: Allergies Iodine and Iodide Containing Produc Allergy (Verified 09/26/19 01:26) Angioedema Home Medications: Ambulatory Orders Medication Instructions Recorded Aspirin [Aspirin, Baby] 81 mg PO DAILY@0800 09/26/19 Atorvastatin Calcium 80 mg PO QHS 09/26/19 Clopidogrel Bisulfate [Plavix] 75 mg PO DAILY 09/26/19 Entecavir 0.5 mg PO DAILY 09/26/19 Metoprolol Succinate 25 mg PO DAILY 09/26/19 Penicillin Vk [Pen-Vee K , 500 mg PO 4X/DAY 09/26/19 V-Cillin K] - Social History SMOKING STATUS:: Former smoker Vital Signs Temp Pulse Resp BP Pulse Ox 99.0 F 91 16 87/70 L 98 09/26/19 11:00 09/26/19 11:14 09/26/19 11:00 09/26/19 11:00 09/26/19 11:00 Oxygen Delivery Method Mechanical Ventilator Weight: 70.3 kg Body Mass Index (BMI) 23.6 Microbiology Past 72 Hours 09/26/19 05:50 Legionella Antigen - Final Urine Catheter - Enciso 09/26/19 05:50 Streptococcus pneumoniae Antigen (M - Final Urine Catheter - Enciso 09/26/19 01:40 Respiratory Panel (PCR) - Final Mucosa - Nasopharyngeal 09/26/19 01:40 Influenza Types A,B Direct FA (TANVIR) - Final Mucosa - Nasopharyngeal Laboratory Tests Past 24 Hrs 09/26/19 09/26/19 09/26/19 01:30 01:30 01:30 WBC 17.1 H RBC 5.93 Hgb 16.9 H Hct 54.1 H MCV 91.2 MCH 28.5 MCHC 31.2 L RDW Std Deviation 49.9 H RDW Coeff of [place] 15.0 H Plt Count 249 MPV 9.9 Immature Gran % (Auto) 1.200 H Neut % (Auto) 29.7 L Lymph % (Auto) 52.7 H [place] % (Auto) 6.4 Eos % (Auto) 9.3 H Baso % (Auto) 0.7 Absolute Neuts (auto) 5.1 Absolute Lymphs (auto) 9.03 H Nucleated RBC % 0 Differential Comment SEE COMMENT Diff Path Review Reviewed Platelet Estimate ADEQUATE RBC Morphology N CHROM Anisocytosis RARE Macrocytosis RARE PT INR APTT Specimen Type Sample Site pH Bicarbonate Actual POC Total CO2 Base Excess O2 Saturation O2 % ABG pCO2 ABG pO2 Jayesh Test Respiration Rate O2 Delivery Device Vent Mode Tidal Volume POC PEEP Blood Gas Notified Whom Blood Gas Notified Time Sodium 140 Potassium 4.7 Chloride 107 Carbon Dioxide 26.0 Anion Gap 7 BUN 28 H Creatinine 1.09 Estim Creat Clear Calc 69.76 Est GFR (MDRD) Af Amer 87 Est GFR (MDRD) Non-Af 72 BUN/Creatinine Ratio 25.7 H Glucose 252 H Hemoglobin A1c Lactic Acid Calcium 8.9 Magnesium Ferritin Total Bilirubin 0.50 Direct Bilirubin 0.19 AST 106 H ALT 106 H Alkaline Phosphatase 202 H Lactate Dehydrogenase Troponin I 0.205 H C-React Prot Ext Range Total Protein 8.1 Albumin 4.1 Globulin 4.0 Albumin/Globulin Ratio Urine Color Urine Clarity Urine pH Ur Specific [place] Urine Protein Urine Glucose (UA) Urine Ketones Urine Occult Blood Urine Nitrite Urine Bilirubin Urine Urobilinogen Ur Leukocyte Esterase Urine RBC Urine WBC Ur Squamous Epith Cells Amorphous Sediment Urine Bacteria Hyaline Casts Fine Granular Casts Coarse Granular Casts Urine Mucus COVID-19 (DWAYNE) MRSA (PCR) 09/26/19 09/26/19 09/26/19 01:30 01:30 01:32 WBC RBC Hgb Hct MCV MCH MCHC RDW Std Deviation RDW Coeff of [place] Plt Count MPV Immature Gran % (Auto) Neut % (Auto) Lymph % (Auto) [place] % (Auto) Eos % (Auto) Baso % (Auto) Absolute Neuts (auto) Absolute Lymphs (auto) Nucleated RBC % Differential Comment Diff Path Review Platelet Estimate RBC Morphology Anisocytosis Macrocytosis PT 13.3 INR 1.1 APTT 29.1 Specimen Type Sample Site pH Bicarbonate Actual POC Total CO2 Base Excess O2 Saturation O2 % ABG pCO2 ABG pO2 Jayesh Test Respiration Rate O2 Delivery Device Vent Mode Tidal Volume POC PEEP Blood Gas Notified Whom Blood Gas Notified Time Sodium Potassium Chloride Carbon Dioxide Anion Gap BUN Creatinine Estim Creat Clear Calc Est GFR (MDRD) Af Amer Est GFR (MDRD) Non-Af BUN/Creatinine Ratio Glucose Hemoglobin A1c 5.4 Lactic Acid 3.7 H* Calcium Magnesium Ferritin Total Bilirubin Direct Bilirubin AST ALT Alkaline Phosphatase Lactate Dehydrogenase Troponin I C-React Prot Ext Range Total Protein Albumin Globulin Albumin/Globulin Ratio Urine Color Urine Clarity Urine pH Ur Specific [place] Urine Protein Urine Glucose (UA) Urine Ketones Urine Occult Blood Urine Nitrite Urine Bilirubin Urine Urobilinogen Ur Leukocyte Esterase Urine RBC Urine WBC Ur Squamous Epith Cells Amorphous Sediment Urine Bacteria Hyaline Casts Fine Granular Casts Coarse Granular Casts Urine Mucus COVID-19 (DWAYNE) MRSA (PCR) 09/26/19 09/26/19 09/26/19 03:01 03:52 05:30 WBC RBC Hgb Hct MCV MCH MCHC RDW Std Deviation RDW Coeff of [place] Plt Count MPV Immature Gran % (Auto) Neut % (Auto) Lymph % (Auto) [place] % (Auto) Eos % (Auto) Baso % (Auto) Absolute Neuts (auto) Absolute Lymphs (auto) Nucleated RBC % Differential Comment Diff Path Review Platelet Estimate RBC Morphology Anisocytosis Macrocytosis PT INR APTT Specimen Type ART Sample Site L RADIAL pH 7.13 L* Bicarbonate Actual 26.4 H POC Total CO2 29 Base Excess -3 L O2 Saturation 99 O2 % 100 ABG pCO2 78.7 H* ABG pO2 218 H Jayesh Test POS Respiration Rate 16 O2 Delivery Device Vent Vent Mode A-C Tidal Volume 400 POC PEEP 5 Blood Gas Notified Whom ED Blood Gas Notified Time 352 Sodium Potassium Chloride Carbon Dioxide Anion Gap BUN Creatinine Estim Creat Clear Calc Est GFR (MDRD) Af Amer Est GFR (MDRD) Non-Af BUN/Creatinine Ratio Glucose Hemoglobin A1c Lactic Acid Calcium Magnesium Ferritin Total Bilirubin Direct Bilirubin AST ALT Alkaline Phosphatase Lactate Dehydrogenase Troponin I C-React Prot Ext Range Total Protein Albumin Globulin Albumin/Globulin Ratio Urine Color Yellow Urine Clarity Sl Cldy Urine pH 6.0 Ur Specific [place] 1.025 Urine Protein 500 H Urine Glucose (UA) Normal Urine Ketones Negative Urine Occult Blood 150 H Urine Nitrite Negative Urine Bilirubin Negative Urine Urobilinogen 1 H Ur Leukocyte Esterase Negative Urine RBC 10-25 SEEN Urine WBC 0-5 SEEN Ur Squamous Epith Cells 0 SEEN Amorphous Sediment 1+ Urine Bacteria 0 SEEN Hyaline Casts 5-10 SEEN Fine Granular Casts 0-5 SEEN Coarse Granular Casts 0-5 SEEN Urine Mucus 0 SEEN COVID-19 (DWAYNE) MRSA (PCR) Negative 09/26/19 09/26/19 09/26/19 06:00 06:00 06:04 WBC RBC Hgb Hct MCV MCH MCHC RDW Std Deviation RDW Coeff of [place] Plt Count MPV Immature Gran % (Auto) Neut % (Auto) Lymph % (Auto) [place] % (Auto) Eos % (Auto) Baso % (Auto) Absolute Neuts (auto) Absolute Lymphs (auto) Nucleated RBC % Differential Comment Diff Path Review Platelet Estimate RBC Morphology Anisocytosis Macrocytosis PT INR APTT Specimen Type ART Sample Site pH 7.22 L Bicarbonate Actual 26.5 H POC Total CO2 28 Base Excess -1 O2 Saturation 100 H O2 % 60 ABG pCO2 64.6 H ABG pO2 263 H Jayesh Test Respiration Rate 20 O2 Delivery Device Vent Vent Mode Tidal Volume 450 POC PEEP 8 Blood Gas Notified Whom ICU Blood Gas Notified Time 604 Sodium 141 Potassium 4.7 Chloride 110 H Carbon Dioxide 25.0 Anion Gap 6 BUN 32 H Creatinine 0.99 Estim Creat Clear Calc 73.97 Est GFR (MDRD) Af Amer 97 Est GFR (MDRD) Non-Af 80 BUN/Creatinine Ratio 32.2 H Glucose 164 H Hemoglobin A1c Lactic Acid 1.0 Calcium 8.3 L Magnesium 2.3 Ferritin 319 Total Bilirubin 0.50 Direct Bilirubin AST 102 H ALT 106 H Alkaline Phosphatase 149 H Lactate Dehydrogenase 310 H Troponin I 4.220 H* C-React Prot Ext Range Pending Total Protein 7.2 Albumin 3.6 Globulin 3.6 Albumin/Globulin Ratio 1.0 Urine Color Urine Clarity Urine pH Ur Specific [place] Urine Protein Urine Glucose (UA) Urine Ketones Urine Occult Blood Urine Nitrite Urine Bilirubin Urine Urobilinogen Ur Leukocyte Esterase Urine RBC Urine WBC Ur Squamous Epith Cells Amorphous Sediment Urine Bacteria Hyaline Casts Fine Granular Casts Coarse Granular Casts Urine Mucus COVID-19 (DWAYNE) MRSA (PCR) 09/26/19 09/26/19 09/26/19 06:58 07:48 09:45 WBC RBC Hgb Hct MCV MCH MCHC RDW Std Deviation RDW Coeff of [place] Plt Count MPV Immature Gran % (Auto) Neut % (Auto) Lymph % (Auto) [place] % (Auto) Eos % (Auto) Baso % (Auto) Absolute Neuts (auto) Absolute Lymphs (auto) Nucleated RBC % Differential Comment Diff Path Review Platelet Estimate RBC Morphology Anisocytosis Macrocytosis PT INR APTT Specimen Type ART Sample Site L RADIAL pH 7.28 L Bicarbonate Actual 24.7 POC Total CO2 26 Base Excess -2 O2 Saturation 91 L O2 % 50 ABG pCO2 52.2 H ABG pO2 70 L Jayesh Test Respiration Rate 14 O2 Delivery Device Vent Vent Mode A-C Tidal Volume 450 POC PEEP 8 Blood Gas Notified Whom Blood Gas Notified Time Sodium Potassium Chloride Carbon Dioxide Anion Gap BUN Creatinine Estim Creat Clear Calc Est GFR (MDRD) Af Amer Est GFR (MDRD) Non-Af BUN/Creatinine Ratio Glucose Hemoglobin A1c Lactic Acid Calcium Magnesium Ferritin Total Bilirubin Direct Bilirubin AST ALT Alkaline Phosphatase Lactate Dehydrogenase Troponin I 5.180 H* C-React Prot Ext Range Total Protein Albumin Globulin Albumin/Globulin Ratio Urine Color Urine Clarity Urine pH Ur Specific [place] Urine Protein Urine Glucose (UA) Urine Ketones Urine Occult Blood Urine Nitrite Urine Bilirubin Urine Urobilinogen Ur Leukocyte Esterase Urine RBC Urine WBC Ur Squamous Epith Cells Amorphous Sediment Urine Bacteria Hyaline Casts Fine Granular Casts Coarse Granular Casts Urine Mucus COVID-19 (DWAYNE) Pending MRSA (PCR) 09/26/19 12:45 WBC RBC Hgb Hct MCV MCH MCHC RDW Std Deviation RDW Coeff of [place] Plt Count MPV Immature Gran % (Auto) Neut % (Auto) Lymph % (Auto) [place] % (Auto) Eos % (Auto) Baso % (Auto) Absolute Neuts (auto) Absolute Lymphs (auto) Nucleated RBC % Differential Comment Diff Path Review Platelet Estimate RBC Morphology Anisocytosis Macrocytosis PT INR APTT Specimen Type Sample Site pH Bicarbonate Actual POC Total CO2 Base Excess O2 Saturation O2 % ABG pCO2 ABG pO2 Jayesh Test Respiration Rate O2 Delivery Device Vent Mode Tidal Volume POC PEEP Blood Gas Notified Whom Blood Gas Notified Time Sodium Potassium Chloride Carbon Dioxide Anion Gap BUN Creatinine Estim Creat Clear Calc Est GFR (MDRD) Af Amer Est GFR (MDRD) Non-Af BUN/Creatinine Ratio Glucose Hemoglobin A1c Lactic Acid Calcium Magnesium Ferritin Total Bilirubin Direct Bilirubin AST ALT Alkaline Phosphatase Lactate Dehydrogenase Troponin I Pending C-React Prot Ext Range Total Protein Albumin Globulin Albumin/Globulin Ratio Urine Color Urine Clarity Urine pH Ur Specific [place] Urine Protein Urine Glucose (UA) Urine Ketones Urine Occult Blood Urine Nitrite Urine Bilirubin Urine Urobilinogen Ur Leukocyte Esterase Urine RBC Urine WBC Ur Squamous Epith Cells Amorphous Sediment Urine Bacteria Hyaline Casts Fine Granular Casts Coarse Granular Casts Urine Mucus COVID-19 (DWAYNE) MRSA (PCR) - Other Studies Radiology: [] reviewed Other Studies: [] Route of nutrition/ use of supplements: [] Nutritional Intake: [] IV Site: [] Enciso Catheter: [] - Physical Exam General: Non-Cooperative HEENT: Atraumatic, PERRLA Neck: Supple, No Nodes Lungs: Diminished Cardiovascular: Tachycardic Abdomen: Soft, Non Tender, Non-Distended Extremities: No edema Skin: No rashes IV Site: Central Line, without redness Musculoskeletal: No Tenderness to Palpation of Joints or Extremities - Assessment/Plan Antibiotics: [] Assessment/Plan: [] Active and Suspected Problems Septic shock (Acute) Acute respiratory failure with hypoxia (Acute) Suspected 2019 novel coronavirus infection (Acute) Cardiac enzymes elevated (Acute) Transaminitis (Acute) Hyperglycemia (Acute) septic shock with acute hypoxic resp failure - covid pending from bronchial wash. Resp pcr panel neg. UAg neg. MRSA screen neg. Will order CT-PE. Stop vanc, continue zosyn. Cardiology consulted for rising trop and wall motion abnormalities on echo. Will follow, thank you, d/w Dr. Ramirez
[2019-09-26] MEDS: DiphenhydrAMINE 50 MG/ML Syringe IV (13:20)
[2019-09-26] MEDS: Propofol 10MG/Ml 1,000 MG/100 ML Bottle 6.7 MG CONT INF ×2 (14:00→21:43)
[2019-09-26] MEDS: Vital AF 1.2 Cal Liquid 1,000 ML 60 ML GT (17:00)
[2019-09-26 18:25] LABS: Bedside Glucose 149 mg/dL (70-110)
[2019-09-26 20:44] LABS: CRP < 2.90 mg/L (0.0-3.0)
[2019-09-26] MEDS: Atorvastatin Calcium 80 MG Tablet GT (20:51)
[2019-09-26 23:01] LABS: Bedside Glucose 165 mg/dL (70-110)
[2019-09-27] VITALS (39 sets, daily range): BP systolic 85–115; BP diastolic 56–74; PULSE 82–112; RESP 13–23; TEMP 37–37.5; O2SAT 89–98
[2019-09-27] MEDS: Insulin Lispro 100 UNIT/ML INSULN.PEN SC ×4 (03:23→21:09)
[2019-09-27] MEDS: 0.9% Saline Lock 10 ML Syringe IV ×3 (03:24→16:56)
[2019-09-27] MEDS: Ipratropium/Albuterol Sulfate 3 ML AMPUL.NEB INHALATION ×4 (03:38→18:30)
[2019-09-27 03:58] LABS: Absolute Lymphocyte Count 0.75 X10^3/uL (0.83-4.51); Absolute Neutrophil Count 10.2 X10^3/uL (2.0-7.7); Basophil# 0.01 X10^3/uL; Basophil% 0.1 % (0-1); Hematocrit 45.1 % (40-54); Hemoglobin 14.3 g/dL (13.0-16.5); Lymphocyte # 0.75 X10^3/ul (4.0); Lymphocyte % 6.1 % (19-41); Mean Corp Hgb Conc 31.7 g/dL (32-36); Mean Corpuscular Hgb 28.4 pg (27.0-32.0); Mean Corpuscular Volume 89.5 fL (80-94); Mean Platelet Vol. 9.9 fl (6.2-12.0); Monocyte# 1.26 X10^3/uL; Monocyte% 10.3 % (0-10); NRBC Flagged by Analyzer 0 % (0-5); Neutrophil # 10.21 X10^3/uL (2.7-7.7); POSITIVE MORPHOLOGY YES; Platelet Count 161 K/mm3 (150-450); RBC Distribution Width CV 15.3 % (11.6-14.6); RBC Distribution Width SD 49.9 fl (35.1-43.9); Red Blood Count 5.04 M/mm3 (4.6-6.2); White Blood Count 12.3 K/mm3 (4.4-11.0)
[2019-09-27 04:07] LABS: Differential Indicated SCAN CRITERIA MET
[2019-09-27 04:44] LABS: ALB/GLOB Ratio 0.9 RATIO (0.9-2.4); AST(SGOT) 59 U/L (15-37); Alanine Aminotransfer ALT/SGPT 78 U/L (16-61); Albumin, Serum 3.2 g/dL (3.2-5.0); Alkaline Phosphatase 98 U/L (45-117); Anion Gap 5 (5-15); BUN 29 mg/dL (7-18); BUN/Creat Ratio 31.6 RATIO (10-20); Calcium,Total 8.4 mg/dL (8.5-10.1); Chloride 107 mmol/L (98-107); Creatinine, Serum 0.92 mg/dL (0.70-1.30); EST Glomerular Filtration Rate 88 mL/min (>60); Est Glom Filt Rate - Afr Amer 106 mL/min (>60); Estimated Creatinine Clearance 78.24 ml/min; Globulin 3.5 g/dL (2.2-4.2); Glucose 150 mg/dL (74-106); Potassium 4.6 mmol/L (3.5-5.1); Protein, Total 6.7 g/dL (6.4-8.2); Sodium Level 141 mmol/L (136-145)
[2019-09-27] MEDS: TITRATION PARAMETER CHANGE 1 EACH IV (05:26)
[2019-09-27 05:31] LABS: Bedside Glucose 159 mg/dL (70-110)
--- NOTE | 2019-09-27 06:16 | CPS ---
at approimately 25 minutes after trial began pt dropped spo2 to 87, hr increased significantly, had to stop trial.
--- NOTE | 2019-09-27 06:28 | NURSING ---
respiratory notified of Dr. Ramirez's order for increase PEEP to 10.
--- NOTE | 2019-09-27 06:28 | NURSING ---
Pat, daughter, called in to unit and update was provided at this time. She stated she would like Shin to stay at [facility] for all care rather than being transferred if able to come off of the vent.
--- NOTE | 2019-09-27 06:37 | PN_ITS ---
Subjective: The patient was seen and examined at the bedside this morning. Events from the last 24 hours have been reviewed. The patient currently has a low-grade fever, but remains hemodynamically stable. Early this morning, the patient was on an FiO2 of 40% and PEEP of 5. He was placed on a spontaneous breathing trial, which he later failed due to hypoxemia and tachypnea. Following his breathing trial, the patient's FiO2 had to be increased to 60%. Although the patient's coronavirus paperwork was filled out early yesterday morning and submitted to the [facility], the patient's sample was not taken by track car operator yesterday to [place]. Therefore, his COVID testing will not go out until this afternoon. Nursing staff this morning did report a large amount of endotracheal secretions. The patient has been tolerating tube feeds without issue. He remains sedated on propofol and fentanyl. Objective: The patient's most recent lab work, culture data and imaging studies have all been personally reviewed. Surface echocardiogram revealed normal LV size with an ejection fraction of 25 to 30%. Stage II diastolic dysfunction was noted along with hypokinesis of the inferior wall, lateral wall and basal septum. Pulmonary artery systolic pressure was estimated to be 35 mmHg. CTA chest revealed no evidence for PE. There was evidence of bilateral interstitial thickening, emphysematous changes, and airspace disease/consolidation in the lower lobes, primarily on the right side. Strep and urine Legionella antigens were negative. Respiratory viral panel was negative. Sputum and blood cultures are pending. General: - - Remains intubated, sedated and mechanically ventilated. No ventilator dyssynchrony noted. HEENT: Atraumatic, PERRLA, Normocephalic Oral: No Gingival or Mucosal Lesions/ Ulcerations, - - Endotracheal and OG tubes in place Neck: Supple, No Nodes, Trachea Midline, - - Right IJ triple-lumen catheter Lungs: No rhonchi, No rales, Diminished, Wheezes Cardiovascular: Regular rate, Regular Rhythm, Normal S1, Normal S2, No murmurs Abdomen: Bowel Sounds Present, Soft, Non Tender Extremities: No clubbing, No cyanosis, No edema Skin: No breakdown Musculoskeletal: No Muscle Wasting Lymphatic: No Cervical, Supraclavicular, or Inguinal Adenopathy Neurological: - - No focal neurological deficits. Able to open eyes and follow simple commands. Minimally sedated with a RASS of -1. Vital Signs Temp Pulse Resp BP Pulse Ox 99.2 F H 100 17 89/58 L 89 09/27/19 06:00 09/27/19 06:00 09/27/19 06:00 09/27/19 06:00 09/27/19 06:00 Oxygen Delivery Method Mechanical Ventilator Weight: 152 lb 5.431 oz Body Mass Index (BMI) 23.6 Intake and Output for Last 24 Hours 09/25/19 09/26/19 09/27/19 23:59 23:59 23:59 Intake Total 1620.54 / 1633.57 319.90 / 319.90 Output Total 1450 / 1450 275 / 275 Balance 170.54 / 183.57 44.90 / 44.90 Labs (Last 48 Hours) 09/26/19 09/26/19 09/26/19 01:30 01:30 01:30 WBC 17.1 H RBC 5.93 Hgb 16.9 H Hct 54.1 H MCV 91.2 MCH 28.5 MCHC 31.2 L RDW Std Deviation 49.9 H RDW Coeff of [place] 15.0 H Plt Count 249 MPV 9.9 Immature Gran % (Auto) 1.200 H Neut % (Auto) 29.7 L Lymph % (Auto) 52.7 H [place] % (Auto) 6.4 Eos % (Auto) 9.3 H Baso % (Auto) 0.7 Absolute Neuts (auto) 5.1 Absolute Lymphs (auto) 9.03 H Nucleated RBC % 0 Differential Comment SEE COMMENT Diff Path Review Reviewed Platelet Estimate ADEQUATE RBC Morphology N CHROM Anisocytosis RARE Macrocytosis RARE PT INR APTT Specimen Type Sample Site pH Bicarbonate Actual POC Total CO2 Base Excess O2 Saturation O2 % ABG pCO2 ABG pO2 Jayesh Test Respiration Rate O2 Delivery Device Vent Mode Tidal Volume POC PEEP Blood Gas Notified Whom Blood Gas Notified Time Sodium 140 Potassium 4.7 Chloride 107 Carbon Dioxide 26.0 Anion Gap 7 BUN 28 H Creatinine 1.09 Estim Creat Clear Calc 69.76 Est GFR (MDRD) Af Amer 87 Est GFR (MDRD) Non-Af 72 BUN/Creatinine Ratio 25.7 H Glucose 252 H Hemoglobin A1c Lactic Acid Calcium 8.9 Magnesium Ferritin Total Bilirubin 0.50 Direct Bilirubin 0.19 AST 106 H ALT 106 H Alkaline Phosphatase 202 H Lactate Dehydrogenase Troponin I 0.205 H C-React Prot Ext Range Total Protein 8.1 Albumin 4.1 Globulin 4.0 Albumin/Globulin Ratio Urine Color Urine Clarity Urine pH Ur Specific [place] Urine Protein Urine Glucose (UA) Urine Ketones Urine Occult Blood Urine Nitrite Urine Bilirubin Urine Urobilinogen Ur Leukocyte Esterase Urine RBC Urine WBC Ur Squamous Epith Cells Amorphous Sediment Urine Bacteria Hyaline Casts Fine Granular Casts Coarse Granular Casts Urine Mucus COVID-19 (DWAYNE) MRSA (PCR) POC Glucose 09/26/19 09/26/19 09/26/19 01:30 01:30 01:32 WBC RBC Hgb Hct MCV MCH MCHC RDW Std Deviation RDW Coeff of [place] Plt Count MPV Immature Gran % (Auto) Neut % (Auto) Lymph % (Auto) [place] % (Auto) Eos % (Auto) Baso % (Auto) Absolute Neuts (auto) Absolute Lymphs (auto) Nucleated RBC % Differential Comment Diff Path Review Platelet Estimate RBC Morphology Anisocytosis Macrocytosis PT 13.3 INR 1.1 APTT 29.1 Specimen Type Sample Site pH Bicarbonate Actual POC Total CO2 Base Excess O2 Saturation O2 % ABG pCO2 ABG pO2 Jayesh Test Respiration Rate O2 Delivery Device Vent Mode Tidal Volume POC PEEP Blood Gas Notified Whom Blood Gas Notified Time Sodium Potassium Chloride Carbon Dioxide Anion Gap BUN Creatinine Estim Creat Clear Calc Est GFR (MDRD) Af Amer Est GFR (MDRD) Non-Af BUN/Creatinine Ratio Glucose Hemoglobin A1c 5.4 Lactic Acid 3.7 H* Calcium Magnesium Ferritin Total Bilirubin Direct Bilirubin AST ALT Alkaline Phosphatase Lactate Dehydrogenase Troponin I C-React Prot Ext Range Total Protein Albumin Globulin Albumin/Globulin Ratio Urine Color Urine Clarity Urine pH Ur Specific [place] Urine Protein Urine Glucose (UA) Urine Ketones Urine Occult Blood Urine Nitrite Urine Bilirubin Urine Urobilinogen Ur Leukocyte Esterase Urine RBC Urine WBC Ur Squamous Epith Cells Amorphous Sediment Urine Bacteria Hyaline Casts Fine Granular Casts Coarse Granular Casts Urine Mucus COVID-19 (DWAYNE) MRSA (PCR) POC Glucose 09/26/19 09/26/19 09/26/19 03:01 03:52 05:30 WBC RBC Hgb Hct MCV MCH MCHC RDW Std Deviation RDW Coeff of [place] Plt Count MPV Immature Gran % (Auto) Neut % (Auto) Lymph % (Auto) [place] % (Auto) Eos % (Auto) Baso % (Auto) Absolute Neuts (auto) Absolute Lymphs (auto) Nucleated RBC % Differential Comment Diff Path Review Platelet Estimate RBC Morphology Anisocytosis Macrocytosis PT INR APTT Specimen Type ART Sample Site L RADIAL pH 7.13 L* Bicarbonate Actual 26.4 H POC Total CO2 29 Base Excess -3 L O2 Saturation 99 O2 % 100 ABG pCO2 78.7 H* ABG pO2 218 H Jayesh Test POS Respiration Rate 16 O2 Delivery Device Vent Vent Mode A-C Tidal Volume 400 POC PEEP 5 Blood Gas Notified Whom ED MD Blood Gas Notified Time 352 Sodium Potassium Chloride Carbon Dioxide Anion Gap BUN Creatinine Estim Creat Clear Calc Est GFR (MDRD) Af Amer Est GFR (MDRD) Non-Af BUN/Creatinine Ratio Glucose Hemoglobin A1c Lactic Acid Calcium Magnesium Ferritin Total Bilirubin Direct Bilirubin AST ALT Alkaline Phosphatase Lactate Dehydrogenase Troponin I C-React Prot Ext Range Total Protein Albumin Globulin Albumin/Globulin Ratio Urine Color Yellow Urine Clarity Sl Cldy Urine pH 6.0 Ur Specific [place] 1.025 Urine Protein 500 H Urine Glucose (UA) Normal Urine Ketones Negative Urine Occult Blood 150 H Urine Nitrite Negative Urine Bilirubin Negative Urine Urobilinogen 1 H Ur Leukocyte Esterase Negative Urine RBC 10-25 SEEN Urine WBC 0-5 SEEN Ur Squamous Epith Cells 0 SEEN Amorphous Sediment 1+ Urine Bacteria 0 SEEN Hyaline Casts 5-10 SEEN Fine Granular Casts 0-5 SEEN Coarse Granular Casts 0-5 SEEN Urine Mucus 0 SEEN COVID-19 (DWAYNE) MRSA (PCR) Negative POC Glucose 09/26/19 09/26/19 09/26/19 06:00 06:00 06:00 WBC RBC Hgb Hct MCV MCH MCHC RDW Std Deviation RDW Coeff of [place] Plt Count MPV Immature Gran % (Auto) Neut % (Auto) Lymph % (Auto) [place] % (Auto) Eos % (Auto) Baso % (Auto) Absolute Neuts (auto) Absolute Lymphs (auto) Nucleated RBC % Differential Comment Diff Path Review Platelet Estimate RBC Morphology Anisocytosis Macrocytosis PT INR APTT Specimen Type Sample Site pH Bicarbonate Actual POC Total CO2 Base Excess O2 Saturation O2 % ABG pCO2 ABG pO2 Jayesh Test Respiration Rate O2 Delivery Device Vent Mode Tidal Volume POC PEEP Blood Gas Notified Whom Blood Gas Notified Time Sodium 141 Potassium 4.7 Chloride 110 H Carbon Dioxide 25.0 Anion Gap 6 BUN 32 H Creatinine 0.99 Estim Creat Clear Calc 73.97 Est GFR (MDRD) Af Amer 97 Est GFR (MDRD) Non-Af 80 BUN/Creatinine Ratio 32.2 H Glucose 164 H Hemoglobin A1c Lactic Acid 1.0 Calcium 8.3 L Magnesium 2.3 Ferritin 319 Total Bilirubin 0.50 Direct Bilirubin AST 102 H ALT 106 H Alkaline Phosphatase 149 H Lactate Dehydrogenase 310 H Troponin I 4.220 H* C-React Prot Ext Range < 2.90 Total Protein 7.2 Albumin 3.6 Globulin 3.6 Albumin/Globulin Ratio 1.0 Urine Color Urine Clarity Urine pH Ur Specific [place] Urine Protein Urine Glucose (UA) Urine Ketones Urine Occult Blood Urine Nitrite Urine Bilirubin Urine Urobilinogen Ur Leukocyte Esterase Urine RBC Urine WBC Ur Squamous Epith Cells Amorphous Sediment Urine Bacteria Hyaline Casts Fine Granular Casts Coarse Granular Casts Urine Mucus COVID-19 (DWAYNE) MRSA (PCR) POC Glucose 171 H 09/26/19 09/26/19 09/26/19 06:04 06:58 07:48 WBC RBC Hgb Hct MCV MCH MCHC RDW Std Deviation RDW Coeff of [place] Plt Count MPV Immature Gran % (Auto) Neut % (Auto) Lymph % (Auto) [place] % (Auto) Eos % (Auto) Baso % (Auto) Absolute Neuts (auto) Absolute Lymphs (auto) Nucleated RBC % Differential Comment Diff Path Review Platelet Estimate RBC Morphology Anisocytosis Macrocytosis PT INR APTT Specimen Type ART ART Sample Site L RADIAL pH 7.22 L 7.28 L Bicarbonate Actual 26.5 H 24.7 POC Total CO2 28 26 Base Excess -1 -2 O2 Saturation 100 H 91 L O2 % 60 50 ABG pCO2 64.6 H 52.2 H ABG pO2 263 H 70 L Jayesh Test Respiration Rate 20 14 O2 Delivery Device Vent Vent Vent Mode A-C Tidal Volume 450 450 POC PEEP 8 8 Blood Gas Notified Whom ICU Blood Gas Notified Time 604 Sodium Potassium Chloride Carbon Dioxide Anion Gap BUN Creatinine Estim Creat Clear Calc Est GFR (MDRD) Af Amer Est GFR (MDRD) Non-Af BUN/Creatinine Ratio Glucose Hemoglobin A1c Lactic Acid Calcium Magnesium Ferritin Total Bilirubin Direct Bilirubin AST ALT Alkaline Phosphatase Lactate Dehydrogenase Troponin I C-React Prot Ext Range Total Protein Albumin Globulin Albumin/Globulin Ratio Urine Color Urine Clarity Urine pH Ur Specific [place] Urine Protein Urine Glucose (UA) Urine Ketones Urine Occult Blood Urine Nitrite Urine Bilirubin Urine Urobilinogen Ur Leukocyte Esterase Urine RBC Urine WBC Ur Squamous Epith Cells Amorphous Sediment Urine Bacteria Hyaline Casts Fine Granular Casts Coarse Granular Casts Urine Mucus COVID-19 (DWAYNE) Pending MRSA (PCR) POC Glucose 09/26/19 09/26/19 09/26/19 09:42 09:45 12:45 WBC RBC Hgb Hct MCV MCH MCHC RDW Std Deviation RDW Coeff of [place] Plt Count MPV Immature Gran % (Auto) Neut % (Auto) Lymph % (Auto) [place] % (Auto) Eos % (Auto) Baso % (Auto) Absolute Neuts (auto) Absolute Lymphs (auto) Nucleated RBC % Differential Comment Diff Path Review Platelet Estimate RBC Morphology Anisocytosis Macrocytosis PT INR APTT Specimen Type Sample Site pH Bicarbonate Actual POC Total CO2 Base Excess O2 Saturation O2 % ABG pCO2 ABG pO2 Jayesh Test Respiration Rate O2 Delivery Device Vent Mode Tidal Volume POC PEEP Blood Gas Notified Whom Blood Gas Notified Time Sodium Potassium Chloride Carbon Dioxide Anion Gap BUN Creatinine Estim Creat Clear Calc Est GFR (MDRD) Af Amer Est GFR (MDRD) Non-Af BUN/Creatinine Ratio Glucose Hemoglobin A1c Lactic Acid Calcium Magnesium Ferritin Total Bilirubin Direct Bilirubin AST ALT Alkaline Phosphatase Lactate Dehydrogenase Troponin I 5.180 H* 5.110 H* C-React Prot Ext Range Total Protein Albumin Globulin Albumin/Globulin Ratio Urine Color Urine Clarity Urine pH Ur Specific [place] Urine Protein Urine Glucose (UA) Urine Ketones Urine Occult Blood Urine Nitrite Urine Bilirubin Urine Urobilinogen Ur Leukocyte Esterase Urine RBC Urine WBC Ur Squamous Epith Cells Amorphous Sediment Urine Bacteria Hyaline Casts Fine Granular Casts Coarse Granular Casts Urine Mucus COVID-19 (DWAYNE) MRSA (PCR) POC Glucose 160 H 09/26/19 09/26/19 09/27/19 17:48 20:42 03:06 WBC RBC Hgb Hct MCV MCH MCHC RDW Std Deviation RDW Coeff of [place] Plt Count MPV Immature Gran % (Auto) Neut % (Auto) Lymph % (Auto) [place] % (Auto) Eos % (Auto) Baso % (Auto) Absolute Neuts (auto) Absolute Lymphs (auto) Nucleated RBC % Differential Comment Diff Path Review Platelet Estimate RBC Morphology Anisocytosis Macrocytosis PT INR APTT Specimen Type Sample Site pH Bicarbonate Actual POC Total CO2 Base Excess O2 Saturation O2 % ABG pCO2 ABG pO2 Jayesh Test Respiration Rate O2 Delivery Device Vent Mode Tidal Volume POC PEEP Blood Gas Notified Whom Blood Gas Notified Time Sodium Potassium Chloride Carbon Dioxide Anion Gap BUN Creatinine Estim Creat Clear Calc Est GFR (MDRD) Af Amer Est GFR (MDRD) Non-Af BUN/Creatinine Ratio Glucose Hemoglobin A1c Lactic Acid Calcium Magnesium Ferritin Total Bilirubin Direct Bilirubin AST ALT Alkaline Phosphatase Lactate Dehydrogenase Troponin I C-React Prot Ext Range Total Protein Albumin Globulin Albumin/Globulin Ratio Urine Color Urine Clarity Urine pH Ur Specific [place] Urine Protein Urine Glucose (UA) Urine Ketones Urine Occult Blood Urine Nitrite Urine Bilirubin Urine Urobilinogen Ur Leukocyte Esterase Urine RBC Urine WBC Ur Squamous Epith Cells Amorphous Sediment Urine Bacteria Hyaline Casts Fine Granular Casts Coarse Granular Casts Urine Mucus COVID-19 (DWAYNE) MRSA (PCR) POC Glucose 149 H 165 H 159 H 09/27/19 09/27/19 03:15 03:15 WBC 12.3 H RBC 5.04 Hgb 14.3 Hct 45.1 MCV 89.5 MCH 28.4 MCHC 31.7 L RDW Std Deviation 49.9 H RDW Coeff of [place] 15.3 H Plt Count 161 MPV 9.9 Immature Gran % (Auto) 0.500 Neut % (Auto) 83.0 H Lymph % (Auto) 6.1 L [place] % (Auto) 10.3 H Eos % (Auto) 0.0 Baso % (Auto) 0.1 Absolute Neuts (auto) 10.2 H Absolute Lymphs (auto) 0.75 L Nucleated RBC % 0 Differential Comment Diff Path Review Platelet Estimate RBC Morphology Anisocytosis Macrocytosis PT INR APTT Specimen Type Sample Site pH Bicarbonate Actual POC Total CO2 Base Excess O2 Saturation O2 % ABG pCO2 ABG pO2 Jayesh Test Respiration Rate O2 Delivery Device Vent Mode Tidal Volume POC PEEP Blood Gas Notified Whom Blood Gas Notified Time Sodium 141 Potassium 4.6 Chloride 107 Carbon Dioxide 29.0 Anion Gap 5 BUN 29 H Creatinine 0.92 Estim Creat Clear Calc 78.24 Est GFR (MDRD) Af Amer 106 Est GFR (MDRD) Non-Af 88 BUN/Creatinine Ratio 31.6 H Glucose 150 H Hemoglobin A1c Lactic Acid Calcium 8.4 L Magnesium Ferritin Total Bilirubin 0.60 Direct Bilirubin AST 59 H ALT 78 H Alkaline Phosphatase 98 Lactate Dehydrogenase Troponin I C-React Prot Ext Range Total Protein 6.7 Albumin 3.2 Globulin 3.5 Albumin/Globulin Ratio 0.9 Urine Color Urine Clarity Urine pH Ur Specific [place] Urine Protein Urine Glucose (UA) Urine Ketones Urine Occult Blood Urine Nitrite Urine Bilirubin Urine Urobilinogen Ur Leukocyte Esterase Urine RBC Urine WBC Ur Squamous Epith Cells Amorphous Sediment Urine Bacteria Hyaline Casts Fine Granular Casts Coarse Granular Casts Urine Mucus COVID-19 (DWAYNE) MRSA (PCR) POC Glucose Microbiology 09/26/19 06:55 Sputum, Induced/[place] Gram Stain - Final 09/26/19 05:50 Urine Catheter - [place] Legionella Antigen - Final 09/26/19 05:50 Urine Catheter - [place] Streptococcus pneumoniae Antigen (M - Final 09/26/19 01:40 Mucosa - Nasopharyngeal Respiratory Panel (PCR) - Final 09/26/19 01:40 Mucosa - Nasopharyngeal Influenza Types A,B Direct FA (TANVIR) - Final Clinical Impression(s) from Imaging Studies Chest X-Ray 09/26/19 01:33 IMPRESSION: Lines in good position. Hyperinflation, chronic interstitial lung disease, superimposed inflammatory/infectious etiology off mid and lower lung parenchyma right greater than left lung. Electronically Signed: Amparo Bah MD at 3:17 EDT , Service support , Chest X-Ray 09/26/19 03:36 IMPRESSION: Lines in good position. Right greater than left airspace disease superimposed on chronic interstitial lung disease and component of COPD. Electronically Signed: Amparo Bah MD at 4:46 EDT , Service support , Chest CTA 09/26/19 12:03 IMPRESSION: Bibasilar consolidation more prominent in the right lower lobe with minimal pleural effusions. Emphysematous changes with infiltrates in the posterior aspect of the right upper lobe as well as in the medial aspect of the left upper lobe. No evidence of pulmonary embolism. Electronically Signed: Justin Love at 14:24 EDT , Service support , Medical Necessity - Tobacco Use Smoking Status: Former smoker Tobacco Use: Non-smoker Assessment/Plan All Active Problems Septic shock (Acute) Acute respiratory failure with hypoxia (Acute) Suspected 2018 novel coronavirus infection (Acute) Cardiac enzymes elevated (Acute) Transaminitis (Acute) Hyperglycemia (Acute) RECOMMENDATIONS: 1. Continue empiric antimicrobials, bronchodilators and IV steroids. 2. Wean FiO2 to maintain oxygen saturations at or above 90%. 3. Continue propofol and fentanyl for sedation. Goal to maintain a RASS of -1 to 1. 4. Continue tube feeds as tolerated. 5. Continue appropriate ICU prophylaxis. 6. Await COVID test results. IMPRESSIONS: 1. Acute combined respiratory failure The patient presented to the hospital with impending respiratory failure and was emergently intubated in the emergency department. He does have an apparent history of COPD of unknown severity. Chest x-ray did reveal findings of bilateral airspace disease with what is likely some chronic interstitial changes. A follow-up CT chest did reveal evidence of multilobar pneumonia. The patient will remain on empiric antimicrobials, bronchodilators and IV steroids. Infectious work-up is pending, including coronavirus testing. Continue tube feeds and appropriate ICU prophylaxis. 2. Severe sepsis with concern for healthcare associated pneumonia and possible COVID 19 Infection The patients documented hypotension was likely secondary to sedating medication administration. The patient is currently hemodynamically stable. Recommend conservative use of fluids over concerns for coronavirus. In addition, the patient has underlying cardiac disease with a depressed ejection fraction. As noted above, broad-spectrum antimicrobials will be continued. Infectious diseases is currently following to assist with management. 3. Non-ST segment elevation [place]/history of coronary artery disease status post past PCI/combined systolic and diastolic heart failure Unclear if the patient's presenting cardiac manifestation represents a primary cardiac event versus a type II event. The case was discussed with cardiology, who does not feel that the patient requires any intervention at this time. 4. History of tobacco dependency, currently in remission/COPD/hepatitis B/CLL Complicates care, management, recovery and prognosis. Continue home medications as indicated. Continue tube feeds as tolerated. TIME: 40 minutes of critical care time, independent of procedures, was spent addressing the patient's acute combined respiratory failure, severe sepsis, healthcare associated pneumonia, possible coronavirus infection, NSTEMI, review of all data and collaboration with the care team. [id number]) [phone] [id number] Critical care first hour
--- NOTE | 2019-09-27 06:38 | RAD_ITS ---
STUDY: X-RAY CHEST REASON FOR EXAM: Male, 64 years old. respiratory failure TECHNIQUE: Single AP portable view of the chest. COMPARISON: 09/26/2019 FINDINGS: Endotracheal tube, nasogastric tube, right internal jugular deep venous line all of which are unchanged. Status post left axillary lymph node dissection. There is been an interval decrease in the diffuse reticular interstitial opacities throughout the lungs with some persistent opacities in the lower right lung. There is no demonstrated pleural abnormality. Normal size heart. Normal mediastinum and celeste. Normal visualized pulmonary arteries. Normal visualized aortic arch and descending thoracic aorta. Normal visualized thoracic spine. Normal visualized ribs, clavicles, and shoulders. There is no demonstrated abnormality of the visualized soft tissue structures of the upper abdomen. RAD/Chest 1 View (Portable) IMPRESSION: Improved atypical pneumonia with some residual right lower lobe pneumonia. Electronically Signed: Rodri Allred MD at 7:26 EDT Tel , Service support ,
[2019-09-27] MEDS: Clopidogrel Bisulfate 75 MG Tablet GT (08:50)
[2019-09-27] MEDS: Enoxaparin 80 MG/0.8 ML Syringe 70 MG SC ×2 (08:50→20:09)
[2019-09-27] MEDS: Aspirin 81 MG TAB.CHEW GT (08:50)
[2019-09-27] MEDS: Famotidine 20 MG Tablet GT ×2 (08:50→21:09)
[2019-09-27] MEDS: Chlorhexidine 15 ML PO ×2 (08:51→20:10)
[2019-09-27 09:16] LABS: Bedside Glucose 157 mg/dL (70-110)
--- NOTE | 2019-09-27 10:33 | PN.ID_ITS ---
Patient Problems: Active and Suspected Problems Septic shock (Acute) Acute respiratory failure with hypoxia (Acute) Suspected 2019 novel coronavirus infection (Acute) Cardiac enzymes elevated (Acute) Transaminitis (Acute) Hyperglycemia (Acute) Subjective: No fever overnight, awake on vent and able to answer questions. Wants the tube out. - Physical Exam Vitals/I&O's: Vital Signs Temp Pulse Resp BP Pulse Ox 99.3 F H 89 17 101/63 93 09/27/19 07:00 09/27/19 10:27 09/27/19 10:27 09/27/19 07:00 09/27/19 10:27 Oxygen Delivery Method Mechanical Ventilator Weight: 69.1 kg Body Mass Index (BMI) 23.6 Intake and Output for Last 24 Hours 09/25/19 09/26/19 09/27/19 23:59 23:59 23:59 Intake Total 1620.54 / 1633.57 383.54 / 383.54 Output Total 1450 / 1450 275 / 275 Balance 170.54 / 183.57 108.54 / 108.54 General: Alert, Cooperative, No apparent distress Lungs: Diminished Cardiovascular: Regular rate, Regular Rhythm Abdomen: Soft, Non Tender, Non-Distended Skin: No rashes Microbiology Past 72 Hours 09/26/19 06:55 Sputum, Induced/Lukens Gram Stain - Final 09/26/19 06:55 Sputum, Induced/Lukens Respiratory Culture - Preliminary Appears to be normal respiratory naveed. Further studies to follow. 09/26/19 05:50 Urine Catheter - Enciso Legionella Antigen - Final 09/26/19 05:50 Urine Catheter - Enciso Streptococcus pneumoniae Antigen (M - Final 09/26/19 01:40 Mucosa - Nasopharyngeal Respiratory Panel (PCR) - Final 09/26/19 01:40 Mucosa - Nasopharyngeal Influenza Types A,B Direct FA (TANVIR) - Final Laboratory Results 09/26/19 01:30: Diff Path Review Reviewed 09/26/19 01:30: Hemoglobin A1c 5.4 09/26/19 05:30: MRSA (PCR) Negative 09/26/19 06:00: C-React Prot Ext Range < 2.90 09/26/19 06:04: Specimen Type ART, O2 % 60, Respiration Rate 20, O2 Delivery Device Vent, Tidal Volume 450, POC PEEP 8, Blood Gas Notified Whom ICU MD, Blood Gas Notified Time 604 09/26/19 06:58: COVID-19 (DWAYNE) Pending 09/26/19 07:48: Specimen Type ART, Sample Site L RADIAL, O2 % 50, Respiration Rate 14, O2 Delivery Device Vent, Vent Mode A-C, Tidal Volume 450, POC PEEP 8 09/26/19 09:42: POC Glucose 160 H 09/26/19 12:45: Troponin I 5.110 H* 09/26/19 17:48: POC Glucose 149 H 09/26/19 20:42: POC Glucose 165 H 09/27/19 03:06: POC Glucose 159 H 09/27/19 03:15: WBC 12.3 H, RBC 5.04, Hgb 14.3, Hct 45.1, MCV 89.5, MCH 28.4, MCHC 31.7 L, RDW Std Deviation 49.9 H, RDW Coeff of [place] 15.3 H, Plt Count 161, MPV 9.9, Immature Gran % (Auto) 0.500, Neut % (Auto) 83.0 H, Lymph % (Auto) 6.1 L, [place] % (Auto) 10.3 H, Eos % (Auto) 0.0, Baso % (Auto) 0.1, Absolute Neuts (auto) 10.2 H, Absolute Lymphs (auto) 0.75 L, Nucleated RBC % 0, Differential Comment 09/27/19 03:15: Sodium 141, Potassium 4.6, Chloride 107, Carbon Dioxide 29.0, Anion Gap 5, BUN 29 H, Creatinine 0.92, Estim Creat Clear Calc 78.24, Est GFR (MDRD) Af Amer 106, Est GFR (MDRD) Non-Af 88, BUN/Creatinine Ratio 31.6 H, Glucose 150 H, Calcium 8.4 L, Total Bilirubin 0.60, AST 59 H, ALT 78 H, Alkaline Phosphatase 98, Total Protein 6.7, Albumin 3.2, Globulin 3.5, Albumin/Globulin Ratio 0.9 09/27/19 08:43: POC Glucose 157 H Current Medications Acetaminophen (Tylenol) 650 mg RECTAL Q4H PRN PRN PRN Reason: Pain Score 1-10/Temp > 100.7 F Acetaminophen (Tylenol) 650 mg PO Q6H PRN PRN PRN Reason: Pain Score 1-10/Temp > 100.7 F Albuterol Sulfate (Ventolin Aerosols) 2.5 mg INHALATION Q2H PRN PRN PRN Reason: Dyspnea, wheezing Albuterol/Ipratropium (Duoneb) 3 ml INHALATION Q4H.RT [facility] Last Admin: 09/27/19 06:42 Dose: 3 ml Documented by: Aspirin (Aspirin, Baby) 81 mg GT DAILY@1000 [facility] Last Admin: 09/27/19 08:50 Dose: 81 mg Documented by: Atorvastatin Calcium (Lipitor) 80 mg GT QHS [facility] Last Admin: 09/26/19 20:51 Dose: 80 mg Documented by: Chlorhexidine Gluconate () 15 ml PO BID [facility] Last Admin: 09/27/19 08:51 Dose: 15 ml Documented by: Chlorhexidine Gluconate () 1 each TOPICAL DAILY [facility] Clopidogrel Bisulfate (Plavix) 75 mg GT DAILY [facility] Last Admin: 09/27/19 08:50 Dose: 75 mg Documented by: Dextrose (D50w Syringe) 0 gm IV X1 PRN; Protocol PRN Reason: Hypoglycemia Enoxaparin Sodium (Lovenox) 70 mg SC Q12@1000,2000 [facility] Last Admin: 09/27/19 08:50 Dose: 70 mg Documented by: Famotidine (Pepcid) 20 mg GT BID [facility] Last Admin: 09/27/19 08:50 Dose: 20 mg Documented by: Glucagon () 1 mg IM .X1 PRN PRN Reason: Hypoglycemia Fentanyl () 100 mls @ 5 mls/hr IV UD [facility]; Protocol Last Titration: 09/27/19 07:15 Dose: 100 mcg/hr, 10 mls/hr Documented by: Propofol (Diprivan) 1,000 mg in 100 mls @ 4.146 mls/hr CONT INF .Q12H [facility]; Protocol Last Titration: 09/27/19 07:14 Dose: 20 mcg/kg/min, 8.3 mls/hr Documented by: Sodium Chloride () 250 mls @ 15 mls/hr IV .[id number] PRN PRN Reason: Saline Flush Last Infusion: 09/26/19 06:17 Dose: 0 mls/hr Documented by: Sodium Chloride () 250 mls @ 15 mls/hr IV .[id number] PRN PRN Reason: Additional IVPB Infusion Piperacillin Sod/Tazobactam (Sod 3.375 gm/ Sodium Chloride) 50 mls @ 12.5 mls/hr IV Q8@0200,1000,1800 [facility] Last Admin: 09/27/19 09:13 Dose: 12.5 mls/hr Documented by: Enteral Nutritional Formula (Vital Af 1.2 Pieter Liquid) 1,000 mls @ 60 mls/hr GT .[id number] [facility] Last Admin: 09/26/19 17:00 Dose: 60 mls/hr Documented by: Insulin Human Lispro (Humalog Kwikpen (Bkc)) 0 unit SC 0400,1000,1600,2200 [facility]; Protocol Last Admin: 09/27/19 08:51 Dose: 1 unit Documented by: Magnesium Hydroxide (Milk Of Magnesia) 30 ml PO DAILY PRN PRN PRN Reason: Constipation Methylprednisolone (Solu-Medrol) 40 mg IV Q8@0200,1000,1800 [facility] Last Admin: 09/27/19 08:50 Dose: 40 mg Documented by: Nitroglycerin (Nitrostat) 0.4 mg SUBLINGUAL Q5M PRN PRN Reason: CARDIAC/CHEST PAIN Psyllium Hydrophilic Mucilloid (Metamucil) 1 packet PO DAILY PRN PRN PRN Reason: Constipation Senna/Docusate Sodium (Senokot-S, Helene-Colace) 2 tablet GT BID PRN PRN PRN Reason: Constipation Sodium Chloride () 10 - 40 ml IV UD PRN PRN Reason: SALINE FLUSH Last Admin: 09/27/19 08:51 Dose: 20 ml Documented by: Zinc Sulfate (Zinc Sulfate) 220 mg GT TID@0200,1000,1800 [facility] Last Admin: 09/27/19 08:50 Dose: 220 mg Documented by: Medical Necessity - Tobacco Use Smoking Status: Former smoker Tobacco Use: Non-smoker Route of nutrition/ use of supplements: [] Nutritional Intake: [] IV Site: [] Enciso Catheter: [] - Assessment/Plan Antibiotics: [] Assessment/Plan: [] Active and Suspected Problems Septic shock (Acute) Acute respiratory failure with hypoxia (Acute) Suspected 2018 novel coronavirus infection (Acute) Cardiac enzymes elevated (Acute) Transaminitis (Acute) Hyperglycemia (Acute) septic shock with acute hypoxic resp failure - covid pending from bronchial wash. Resp pcr panel neg. UAg neg. MRSA screen neg. No PE seen on CTA. Continue zosyn. Wbc improved today. Will follow, d/w Dr. Ramirez
--- NOTE | 2019-09-27 11:11 | CASEMGMT ---
Participated in interdisciplinary rounds. Pt continues to be intubated, covid test pending, PT/OT will attempt to see pt later today. Will defer d/c planning at this time and continue to follow. MERON Escoto
[2019-09-27] MEDS: fentaNYL drip 100 ML 10 MCG IV ×2 (11:47→21:47)
--- NOTE | 2019-09-27 13:56 | CASEMGMT ---
Addendum entered by Paul Breaux 09/27/19 15:38: Appt has been made @ [facility] by bilingual secretary, Ursula. Pt made aware. Addendum entered by Paul Breuax 09/27/19 15:34: Fax notice received that faxes did not go through. Attempted to fax to both numbers at [facility] x 4 times, with error msg each time that fax did not go through successfully. Call placed to [facility] and she was made aware. She states they have been having issues with the fax line today and a work order has been placed. CM to attempt to fax updated clinicals again tomorrow, 09/27. Original Note: SHANIKA SINGH NOTE: Call placed to [facility]. She was made aware COVID-19 results are still pending. She asked for updated clinicals to be faxed to her. Same done. Jann LYNN RN CM
[2019-09-27] MEDS: Propofol 10MG/Ml 1,000 MG/100 ML Bottle 8.3 MG CONT INF (15:45)
[2019-09-27 17:45] LABS: Bedside Glucose 160 mg/dL (70-110)
--- NOTE | 2019-09-27 18:07 | PCM.PN.HOSP ---
Patient Problems: Active and Suspected Problems Septic shock (Acute) Acute respiratory failure with hypoxia (Acute) Suspected 2019 novel coronavirus infection (Acute) Cardiac enzymes elevated (Acute) Transaminitis (Acute) Hyperglycemia (Acute) Subjective: Intubated and sedated, failed the breathing trial this morning Vitals/I&O's: Vital Signs Temp Pulse Resp BP Pulse Ox 99.2 F H 86 16 100/65 94 09/27/19 14:00 09/27/19 17:39 09/27/19 17:39 09/27/19 14:00 09/27/19 17:39 Oxygen Delivery Method Mechanical Ventilator Weight: 152 lb 5.431 oz Body Mass Index (BMI) 23.6 Intake and Output for Last 24 Hours 09/25/19 09/26/19 09/27/19 23:59 23:59 23:59 Intake Total 1620.54 / 1633.57 1511.45 / 1511.45 Output Total 1450 / 1450 825 / 825 Balance 170.54 / 183.57 686.45 / 686.45 General: - - Intubated and sedated HEENT: Atraumatic, PERRLA, Normocephalic Oral: Moist Mucosa Neck: Supple, No JVD Lungs: Normal air movement, No rhonchi, No rales, Diminished, Wheezes Cardiovascular: Regular rate, Regular Rhythm, Normal S1, Normal S2, No murmurs Abdomen: Soft, Non Tender, Non-Distended, No Hepato-splenomegaly Extremities: No edema, Capillary Refill Less than 3 Seconds Skin: No rashes, No breakdown Neurological: Neuro grossly intact, Sensory exam intact to light touch and pain Psych/Mental Status: Normal Affect, Appropriate Microbiology Past 72 Hours 09/26/19 06:55 Sputum, Induced/Lukens Gram Stain - Final 09/26/19 06:55 Sputum, Induced/Lukens Respiratory Culture - Preliminary Appears to be normal respiratory naveed. Further studies to follow. 09/26/19 05:50 Urine Catheter - Enciso Legionella Antigen - Final 09/26/19 05:50 Urine Catheter - Enciso Streptococcus pneumoniae Antigen (M - Final 09/26/19 01:40 Mucosa - Nasopharyngeal Respiratory Panel (PCR) - Final 09/26/19 01:40 Mucosa - Nasopharyngeal Influenza Types A,B Direct FA (TANVIR) - Final Laboratory Results 09/26/19 06:00: C-React Prot Ext Range < 2.90 09/26/19 17:48: POC Glucose 149 H 09/26/19 20:42: POC Glucose 165 H 09/27/19 03:06: POC Glucose 159 H 09/27/19 03:15: WBC 12.3 H, RBC 5.04, Hgb 14.3, Hct 45.1, MCV 89.5, MCH 28.4, MCHC 31.7 L, RDW Std Deviation 49.9 H, RDW Coeff of [place] 15.3 H, Plt Count 161, MPV 9.9, Immature Gran % (Auto) 0.500, Neut % (Auto) 83.0 H, Lymph % (Auto) 6.1 L, [place] % (Auto) 10.3 H, Eos % (Auto) 0.0, Baso % (Auto) 0.1, Absolute Neuts (auto) 10.2 H, Absolute Lymphs (auto) 0.75 L, Nucleated RBC % 0, Differential Comment 09/27/19 03:15: Sodium 141, Potassium 4.6, Chloride 107, Carbon Dioxide 29.0, Anion Gap 5, BUN 29 H, Creatinine 0.92, Estim Creat Clear Calc 78.24, Est GFR (MDRD) Af Amer 106, Est GFR (MDRD) Non-Af 88, BUN/Creatinine Ratio 31.6 H, Glucose 150 H, Calcium 8.4 L, Total Bilirubin 0.60, AST 59 H, ALT 78 H, Alkaline Phosphatase 98, Total Protein 6.7, Albumin 3.2, Globulin 3.5, Albumin/Globulin Ratio 0.9 09/27/19 08:43: POC Glucose 157 H 09/27/19 16:32: POC Glucose 160 H Current Medications Acetaminophen (Tylenol) 650 mg RECTAL Q4H PRN PRN PRN Reason: Pain Score 1-10/Temp > 100.7 F Acetaminophen (Tylenol) 650 mg PO Q6H PRN PRN PRN Reason: Pain Score 1-10/Temp > 100.7 F Albuterol Sulfate (Ventolin Aerosols) 2.5 mg INHALATION Q2H PRN PRN PRN Reason: Dyspnea, wheezing Albuterol/Ipratropium (Duoneb) 3 ml INHALATION Q6H.RT [facility] Last Admin: 09/27/19 12:26 Dose: 3 ml Documented by: Aspirin (Aspirin, Baby) 81 mg GT DAILY@1000 [facility] Last Admin: 09/27/19 08:50 Dose: 81 mg Documented by: Atorvastatin Calcium (Lipitor) 80 mg GT QHS [facility] Last Admin: 09/26/19 20:51 Dose: 80 mg Documented by: Chlorhexidine Gluconate () 15 ml PO BID [facility] Last Admin: 09/27/19 08:51 Dose: 15 ml Documented by: Chlorhexidine Gluconate () 1 each TOPICAL DAILY [facility] Clopidogrel Bisulfate (Plavix) 75 mg GT DAILY [facility] Last Admin: 09/27/19 08:50 Dose: 75 mg Documented by: Dextrose (D50w Syringe) 0 gm IV X1 PRN; Protocol PRN Reason: Hypoglycemia Enoxaparin Sodium (Lovenox) 70 mg SC Q12@1000,2000 [facility] Last Admin: 09/27/19 08:50 Dose: 70 mg Documented by: Famotidine (Pepcid) 20 mg GT BID [facility] Last Admin: 09/27/19 08:50 Dose: 20 mg Documented by: Glucagon () 1 mg IM .X1 PRN PRN Reason: Hypoglycemia Fentanyl () 100 mls @ 5 mls/hr IV UD [facility]; Protocol Last Titration: 09/27/19 17:00 Dose: 100 mcg/hr, 10 mls/hr Documented by: Propofol (Diprivan) 1,000 mg in 100 mls @ 4.146 mls/hr CONT INF .Q12H [facility]; Protocol Last Titration: 09/27/19 17:00 Dose: 20 mcg/kg/min, 8.3 mls/hr Documented by: Sodium Chloride () 250 mls @ 15 mls/hr IV .[id number] PRN PRN Reason: Saline Flush Last Infusion: 09/27/19 17:51 Dose: 0 mls/hr Documented by: Sodium Chloride () 250 mls @ 15 mls/hr IV .[id number] PRN PRN Reason: Additional IVPB Infusion Piperacillin Sod/Tazobactam (Sod 3.375 gm/ Sodium Chloride) 50 mls @ 12.5 mls/hr IV Q8@0200,1000,1800 [facility] Last Admin: 09/27/19 17:50 Dose: 12.5 mls/hr Documented by: Enteral Nutritional Formula (Vital Af 1.2 Pieter Liquid) 1,000 mls @ 60 mls/hr GT .[id number] [facility] Last Admin: 09/27/19 15:52 Dose: Not Given Documented by: Insulin Human Lispro (Humalog Kwikpen (Bkc)) 0 unit SC 0400,1000,1600,2200 [facility]; Protocol Last Admin: 09/27/19 16:41 Dose: 1 unit Documented by: Magnesium Hydroxide (Milk Of Magnesia) 30 ml PO DAILY PRN PRN PRN Reason: Constipation Methylprednisolone (Solu-Medrol) 40 mg IV Q8@0200,1000,1800 [facility] Last Admin: 09/27/19 16:42 Dose: 40 mg Documented by: Nitroglycerin (Nitrostat) 0.4 mg SUBLINGUAL Q5M PRN PRN Reason: CARDIAC/CHEST PAIN Psyllium Hydrophilic Mucilloid (Metamucil) 1 packet PO DAILY PRN PRN PRN Reason: Constipation Senna/Docusate Sodium (Senokot-S, Helene-Colace) 2 tablet GT BID PRN PRN PRN Reason: Constipation Sodium Chloride () 10 - 40 ml IV UD PRN PRN Reason: SALINE FLUSH Last Admin: 09/27/19 16:56 Dose: 30 ml Documented by: Zinc Sulfate (Zinc Sulfate) 220 mg GT TID@0200,1000,1800 [facility] Last Admin: 09/27/19 16:42 Dose: 220 mg Documented by: STROKE Vital Signs/Narrative: Vital Signs Pulse Resp Pulse Ox 09/27/19 17:39 86 16 94 Medical Necessity - Tobacco Use Smoking Status: Former smoker Tobacco Use: Non-smoker Assessment/Plan All Active Problems Septic shock (Acute) Acute respiratory failure with hypoxia (Acute) Suspected 2018 novel coronavirus infection (Acute) Cardiac enzymes elevated (Acute) Transaminitis (Acute) Hyperglycemia (Acute) 1. Acute hypoxic hypercapnic respiratory failure secondary to acute COPD exacerbation/severe sepsis secondary to healthcare pneumonia with versus COVID-19 -CT of the chest did not show PE on admission -He does have wheezing and therefore is currently on steroids will continue -Continue with Zosyn, vancomycin was discontinued -Continue with DuoNeb -Cultures are pending 2. 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 CLL -He is on entecavir at home -We will hold this medication DVT: Lovenox Inpatient E&M: 73121 Subs Hosp L2
[2019-09-27] MEDS: CHLORHEXIDINE GLUC 2% CLOTH 1 EACH TOWELETTE TOPICAL (18:56)
[2019-09-27] MEDS: Atorvastatin Calcium 80 MG Tablet GT (21:09)
--- NOTE | 2019-09-27 22:09 | NURSING ---
Attempted to call pts daughter to give her update on pt. Phone went straight to voicemail, message left to call back if update wanted.
[2019-09-27 22:35] LABS: Bedside Glucose 182 mg/dL (70-110)
--- NOTE | 2019-09-27 22:50 | NURSING ---
Pts daughter Pat given update on pt at this time, stated that she appreciated the update.
[2019-09-28] VITALS (39 sets, daily range): BP systolic 83–163; BP diastolic 56–99; PULSE 72–133; RESP 14–30; TEMP 37.1–37.7; O2SAT 86–100
[2019-09-28] MEDS: Vital AF 1.2 Cal Liquid 1,000 ML 60 ML GT ×2 (00:03→16:34)
[2019-09-28] MEDS: Propofol 10MG/Ml 1,000 MG/100 ML Bottle 8.3 MG CONT INF (00:57)
[2019-09-28] MEDS: Ipratropium/Albuterol Sulfate 3 ML AMPUL.NEB INHALATION ×4 (01:55→18:45)
[2019-09-28] MEDS: 0.9% Saline Lock 10 ML Syringe IV (02:46)
[2019-09-28] MEDS: CHLORHEXIDINE GLUC 2% CLOTH 1 EACH TOWELETTE TOPICAL (03:00)
[2019-09-28] MEDS: Insulin Lispro 100 UNIT/ML INSULN.PEN SC ×4 (03:04→21:18)
[2019-09-28 03:27] LABS: Absolute Lymphocyte Count 0.81 X10^3/uL (0.83-4.51); Absolute Neutrophil Count 9.5 X10^3/uL (2.0-7.7); Hematocrit 41.4 % (40-54); Hemoglobin 13.1 g/dL (13.0-16.5); Lymphocyte # 0.81 X10^3/ul (4.0); Lymphocyte % 7.2 % (19-41); Mean Corp Hgb Conc 31.6 g/dL (32-36); Mean Corpuscular Hgb 28.1 pg (27.0-32.0); Mean Corpuscular Volume 88.8 fL (80-94); Mean Platelet Vol. 9.8 fl (6.2-12.0); NRBC Flagged by Analyzer 0 % (0-5); Neutrophil # 9.48 X10^3/uL (2.7-7.7); Neutrophil % 84.2 % (47-70); Platelet Count 146 K/mm3 (150-450); RBC Distribution Width CV 15.2 % (11.6-14.6); RBC Distribution Width SD 49.1 fl (35.1-43.9); Red Blood Count 4.66 M/mm3 (4.6-6.2); White Blood Count 11.3 K/mm3 (4.4-11.0)
[2019-09-28 03:30] LABS: ALB/GLOB Ratio 0.9 RATIO (0.9-2.4); AST(SGOT) 34 U/L (15-37); Alanine Aminotransfer ALT/SGPT 62 U/L (16-61); Albumin, Serum 3.1 g/dL (3.2-5.0); Alkaline Phosphatase 86 U/L (45-117); Anion Gap 5 (5-15); BUN 27 mg/dL (7-18); BUN/Creat Ratio 37.5 RATIO (10-20); Calcium,Total 8.3 mg/dL (8.5-10.1); Chloride 104 mmol/L (98-107); Creatinine, Serum 0.72 mg/dL (0.70-1.30); EST Glomerular Filtration Rate 116 mL/min (>60); Est Glom Filt Rate - Afr Amer 141 mL/min (>60); Estimated Creatinine Clearance 99.97 ml/min; Globulin 3.3 g/dL (2.2-4.2); Glucose 155 mg/dL (74-106); Potassium 4.4 mmol/L (3.5-5.1); Protein, Total 6.4 g/dL (6.4-8.2); Sodium Level 141 mmol/L (136-145)
[2019-09-28 03:51] LABS: Bedside Glucose 161 mg/dL (70-110)
[2019-09-28] MEDS: TITRATION PARAMETER CHANGE 1 EACH IV (04:38)
--- NOTE | 2019-09-28 06:32 | PN_ITS ---
Subjective: The patient was seen and examined at the bedside this morning. Events from the last 24 hours have been reviewed. The patient currently has a low-grade fever and is tachycardic and tachypneic. Respiratory therapy reported that the patient failed his spontaneous breathing trial this morning after he became extremely anxious, tachycardic and tachypneic. He also experienced a mucous plugging incident. His FiO2 and PEEP have since had to increase. Objective: The patient's most recent lab work, culture data and imaging studies have all been personally reviewed. Surface echocardiogram revealed normal LV size with an ejection fraction of 25 to 30%. Stage II diastolic dysfunction was noted along with hypokinesis of the inferior wall, lateral wall and basal septum. Pulmonary artery systolic pressure was estimated to be 35 mmHg. CTA chest revealed no evidence for PE. There was evidence of bilateral interstitial thickening, emphysematous changes, and airspace disease/consolidation in the lower lobes, primarily on the right side. Strep and urine Legionella antigens were negative. Respiratory viral panel was negative. Sputum and blood cultures are pending. General: - - Remains intubated, sedated and mechanically ventilated. HEENT: Atraumatic, Normocephalic Oral: Moist Mucosa, - - Endotracheal and OG tubes remain in place Neck: Supple, No Nodes, Trachea Midline, - - Right IJ triple-lumen catheter in place Lungs: No rhonchi, No wheeze, No rales, Diminished, Tachypneic Cardiovascular: Regular rate, Regular Rhythm, Normal S1, Normal S2, No murmurs Abdomen: Bowel Sounds Present, Soft, Non Tender Extremities: No clubbing, No cyanosis, No edema Skin: No breakdown Musculoskeletal: No Muscle Wasting Lymphatic: No Cervical, Supraclavicular, or Inguinal Adenopathy Neurological: - - No focal neurological deficits. Alert and able to follow commands. Psych/Mental Status: Anxious Vital Signs Temp Pulse Resp BP Pulse Ox 98.8 F 133 H 24 H 138/76 H 86 09/28/19 06:00 09/28/19 06:00 09/28/19 06:00 09/28/19 06:00 09/28/19 06:00 Oxygen Delivery Method Mechanical Ventilator Weight: 155 lb 13.869 oz Body Mass Index (BMI) 23.6 Intake and Output for Last 24 Hours 09/26/19 09/27/19 09/28/19 23:59 23:59 23:59 Intake Total 1620.54 / 1633.57 2621.25 / 2639.55 874.40 / 874.40 Output Total 1450 / 1450 1025 / 1175 350 / 350 Balance 170.54 / 183.57 1596.25 / 1464.55 524.40 / 524.40 Labs (Last 48 Hours) 09/26/19 09/26/19 09/26/19 01:30 01:30 05:30 WBC RBC Hgb Hct MCV MCH MCHC RDW Std Deviation RDW Coeff of [place] Plt Count MPV Immature Gran % (Auto) Neut % (Auto) Lymph % (Auto) [place] % (Auto) Eos % (Auto) Baso % (Auto) Absolute Neuts (auto) Absolute Lymphs (auto) Nucleated RBC % Differential Comment Diff Path Review Reviewed Specimen Type Sample Site pH Bicarbonate Actual POC Total CO2 Base Excess O2 Saturation O2 % ABG pCO2 ABG pO2 Respiration Rate O2 Delivery Device Vent Mode Tidal Volume POC PEEP Blood Gas Notified Whom Blood Gas Notified Time Sodium Potassium Chloride Carbon Dioxide Anion Gap BUN Creatinine Estim Creat Clear Calc Est GFR (MDRD) Af Amer Est GFR (MDRD) Non-Af BUN/Creatinine Ratio Glucose Hemoglobin A1c 5.4 Lactic Acid Calcium Magnesium Ferritin Total Bilirubin AST ALT Alkaline Phosphatase Lactate Dehydrogenase Troponin I C-React Prot Ext Range Total Protein Albumin Globulin Albumin/Globulin Ratio COVID-19 ([facility]) MRSA (PCR) Negative POC Glucose 09/26/19 09/26/19 09/26/19 06:00 06:00 06:00 WBC RBC Hgb Hct MCV MCH MCHC RDW Std Deviation RDW Coeff of [place] Plt Count MPV Immature Gran % (Auto) Neut % (Auto) Lymph % (Auto) [place] % (Auto) Eos % (Auto) Baso % (Auto) Absolute Neuts (auto) Absolute Lymphs (auto) Nucleated RBC % Differential Comment Diff Path Review Specimen Type Sample Site pH Bicarbonate Actual POC Total CO2 Base Excess O2 Saturation O2 % ABG pCO2 ABG pO2 Respiration Rate O2 Delivery Device Vent Mode Tidal Volume POC PEEP Blood Gas Notified Whom Blood Gas Notified Time Sodium 141 Potassium 4.7 Chloride 110 H Carbon Dioxide 25.0 Anion Gap 6 BUN 32 H Creatinine 0.99 Estim Creat Clear Calc 73.97 Est GFR (MDRD) Af Amer 97 Est GFR (MDRD) Non-Af 80 BUN/Creatinine Ratio 32.2 H Glucose 164 H Hemoglobin A1c Lactic Acid 1.0 Calcium 8.3 L Magnesium 2.3 Ferritin 319 Total Bilirubin 0.50 AST 102 H ALT 106 H Alkaline Phosphatase 149 H Lactate Dehydrogenase 310 H Troponin I 4.220 H* C-React Prot Ext Range < 2.90 Total Protein 7.2 Albumin 3.6 Globulin 3.6 Albumin/Globulin Ratio 1.0 COVID-19 ([facility]) MRSA (PCR) POC Glucose 171 H 09/26/19 09/26/19 09/26/19 06:04 06:58 07:48 WBC RBC Hgb Hct MCV MCH MCHC RDW Std Deviation RDW Coeff of [place] Plt Count MPV Immature Gran % (Auto) Neut % (Auto) Lymph % (Auto) [place] % (Auto) Eos % (Auto) Baso % (Auto) Absolute Neuts (auto) Absolute Lymphs (auto) Nucleated RBC % Differential Comment Diff Path Review Specimen Type ART ART Sample Site L RADIAL pH 7.22 L 7.28 L Bicarbonate Actual 26.5 H 24.7 POC Total CO2 28 26 Base Excess -1 -2 O2 Saturation 100 H 91 L O2 % 60 50 ABG pCO2 64.6 H 52.2 H ABG pO2 263 H 70 L Respiration Rate 20 14 O2 Delivery Device Vent Vent Vent Mode A-C Tidal Volume 450 450 POC PEEP 8 8 Blood Gas Notified Whom ICU Blood Gas Notified Time 604 Sodium Potassium Chloride Carbon Dioxide Anion Gap BUN Creatinine Estim Creat Clear Calc Est GFR (MDRD) Af Amer Est GFR (MDRD) Non-Af BUN/Creatinine Ratio Glucose Hemoglobin A1c Lactic Acid Calcium Magnesium Ferritin Total Bilirubin AST ALT Alkaline Phosphatase Lactate Dehydrogenase Troponin I C-React Prot Ext Range Total Protein Albumin Globulin Albumin/Globulin Ratio COVID-19 ([facility]) Pending MRSA (PCR) POC Glucose 09/26/19 09/26/19 09/26/19 09:42 09:45 12:45 WBC RBC Hgb Hct MCV MCH MCHC RDW Std Deviation RDW Coeff of [place] Plt Count MPV Immature Gran % (Auto) Neut % (Auto) Lymph % (Auto) [place] % (Auto) Eos % (Auto) Baso % (Auto) Absolute Neuts (auto) Absolute Lymphs (auto) Nucleated RBC % Differential Comment Diff Path Review Specimen Type Sample Site pH Bicarbonate Actual POC Total CO2 Base Excess O2 Saturation O2 % ABG pCO2 ABG pO2 Respiration Rate O2 Delivery Device Vent Mode Tidal Volume POC PEEP Blood Gas Notified Whom Blood Gas Notified Time Sodium Potassium Chloride Carbon Dioxide Anion Gap BUN Creatinine Estim Creat Clear Calc Est GFR (MDRD) Af Amer Est GFR (MDRD) Non-Af BUN/Creatinine Ratio Glucose Hemoglobin A1c Lactic Acid Calcium Magnesium Ferritin Total Bilirubin AST ALT Alkaline Phosphatase Lactate Dehydrogenase Troponin I 5.180 H* 5.110 H* C-React Prot Ext Range Total Protein Albumin Globulin Albumin/Globulin Ratio COVID-19 ([facility]) MRSA (PCR) POC Glucose 160 H 09/26/19 09/26/19 09/27/19 17:48 20:42 03:06 WBC RBC Hgb Hct MCV MCH MCHC RDW Std Deviation RDW Coeff of [place] Plt Count MPV Immature Gran % (Auto) Neut % (Auto) Lymph % (Auto) [place] % (Auto) Eos % (Auto) Baso % (Auto) Absolute Neuts (auto) Absolute Lymphs (auto) Nucleated RBC % Differential Comment Diff Path Review Specimen Type Sample Site pH Bicarbonate Actual POC Total CO2 Base Excess O2 Saturation O2 % ABG pCO2 ABG pO2 Respiration Rate O2 Delivery Device Vent Mode Tidal Volume POC PEEP Blood Gas Notified Whom Blood Gas Notified Time Sodium Potassium Chloride Carbon Dioxide Anion Gap BUN Creatinine Estim Creat Clear Calc Est GFR (MDRD) Af Amer Est GFR (MDRD) Non-Af BUN/Creatinine Ratio Glucose Hemoglobin A1c Lactic Acid Calcium Magnesium Ferritin Total Bilirubin AST ALT Alkaline Phosphatase Lactate Dehydrogenase Troponin I C-React Prot Ext Range Total Protein Albumin Globulin Albumin/Globulin Ratio COVID-19 ([facility]) MRSA (PCR) POC Glucose 149 H 165 H 159 H 09/27/19 09/27/19 09/27/19 03:15 03:15 08:43 WBC 12.3 H RBC 5.04 Hgb 14.3 Hct 45.1 MCV 89.5 MCH 28.4 MCHC 31.7 L RDW Std Deviation 49.9 H RDW Coeff of [place] 15.3 H Plt Count 161 MPV 9.9 Immature Gran % (Auto) 0.500 Neut % (Auto) 83.0 H Lymph % (Auto) 6.1 L [place] % (Auto) 10.3 H Eos % (Auto) 0.0 Baso % (Auto) 0.1 Absolute Neuts (auto) 10.2 H Absolute Lymphs (auto) 0.75 L Nucleated RBC % 0 Differential Comment COMMENT Diff Path Review Specimen Type Sample Site pH Bicarbonate Actual POC Total CO2 Base Excess O2 Saturation O2 % ABG pCO2 ABG pO2 Respiration Rate O2 Delivery Device Vent Mode Tidal Volume POC PEEP Blood Gas Notified Whom Blood Gas Notified Time Sodium 141 Potassium 4.6 Chloride 107 Carbon Dioxide 29.0 Anion Gap 5 BUN 29 H Creatinine 0.92 Estim Creat Clear Calc 78.24 Est GFR (MDRD) Af Amer 106 Est GFR (MDRD) Non-Af 88 BUN/Creatinine Ratio 31.6 H Glucose 150 H Hemoglobin A1c Lactic Acid Calcium 8.4 L Magnesium Ferritin Total Bilirubin 0.60 AST 59 H ALT 78 H Alkaline Phosphatase 98 Lactate Dehydrogenase Troponin I C-React Prot Ext Range Total Protein 6.7 Albumin 3.2 Globulin 3.5 Albumin/Globulin Ratio 0.9 COVID-19 ([facility]) MRSA (PCR) POC Glucose 157 H 09/27/19 09/27/19 09/28/19 16:32 21:06 02:43 WBC RBC Hgb Hct MCV MCH MCHC RDW Std Deviation RDW Coeff of [place] Plt Count MPV Immature Gran % (Auto) Neut % (Auto) Lymph % (Auto) [place] % (Auto) Eos % (Auto) Baso % (Auto) Absolute Neuts (auto) Absolute Lymphs (auto) Nucleated RBC % Differential Comment Diff Path Review Specimen Type Sample Site pH Bicarbonate Actual POC Total CO2 Base Excess O2 Saturation O2 % ABG pCO2 ABG pO2 Respiration Rate O2 Delivery Device Vent Mode Tidal Volume POC PEEP Blood Gas Notified Whom Blood Gas Notified Time Sodium Potassium Chloride Carbon Dioxide Anion Gap BUN Creatinine Estim Creat Clear Calc Est GFR (MDRD) Af Amer Est GFR (MDRD) Non-Af BUN/Creatinine Ratio Glucose Hemoglobin A1c Lactic Acid Calcium Magnesium Ferritin Total Bilirubin AST ALT Alkaline Phosphatase Lactate Dehydrogenase Troponin I C-React Prot Ext Range Total Protein Albumin Globulin Albumin/Globulin Ratio COVID-19 ([facility]) MRSA (PCR) POC Glucose 160 H 182 H 161 H 09/28/19 09/28/19 02:55 02:55 WBC 11.3 H RBC 4.66 Hgb 13.1 Hct 41.4 MCV 88.8 MCH 28.1 MCHC 31.6 L RDW Std Deviation 49.1 H RDW Coeff of [place] 15.2 H Plt Count 146 L MPV 9.8 Immature Gran % (Auto) 0.600 Neut % (Auto) 84.2 H Lymph % (Auto) 7.2 L [place] % (Auto) 8.0 Eos % (Auto) 0.0 Baso % (Auto) 0.0 Absolute Neuts (auto) 9.5 H Absolute Lymphs (auto) 0.81 L Nucleated RBC % 0 Differential Comment Diff Path Review Specimen Type Sample Site pH Bicarbonate Actual POC Total CO2 Base Excess O2 Saturation O2 % ABG pCO2 ABG pO2 Respiration Rate O2 Delivery Device Vent Mode Tidal Volume POC PEEP Blood Gas Notified Whom Blood Gas Notified Time Sodium 141 Potassium 4.4 Chloride 104 Carbon Dioxide 32.0 Anion Gap 5 BUN 27 H Creatinine 0.72 Estim Creat Clear Calc 99.97 Est GFR (MDRD) Af Amer 141 Est GFR (MDRD) Non-Af 116 BUN/Creatinine Ratio 37.5 H Glucose 155 H Hemoglobin A1c Lactic Acid Calcium 8.3 L Magnesium Ferritin Total Bilirubin 0.60 AST 34 ALT 62 H Alkaline Phosphatase 86 Lactate Dehydrogenase Troponin I C-React Prot Ext Range Total Protein 6.4 Albumin 3.1 L Globulin 3.3 Albumin/Globulin Ratio 0.9 COVID-19 ([facility]) MRSA (PCR) POC Glucose Microbiology 09/26/19 06:55 Sputum, Induced/Lukens Gram Stain - Final 09/26/19 06:55 Sputum, Induced/Lukens Respiratory Culture - Preliminary Appears to be normal respiratory naveed. Further studies to follow. 09/26/19 05:50 Urine Catheter - Enciso Legionella Antigen - Final 09/26/19 05:50 Urine Catheter - Enciso Streptococcus pneumoniae Antigen (M - Final 09/26/19 01:40 Mucosa - Nasopharyngeal Respiratory Panel (PCR) - Final Clinical Impression(s) from Imaging Studies Chest X-Ray 09/26/19 01:33 IMPRESSION: Lines in good position. Hyperinflation, chronic interstitial lung disease, superimposed inflammatory/infectious etiology off mid and lower lung parenchyma right greater than left lung. Electronically Signed: Amparo Bah MD at 3:17 EDT , Service support , Chest X-Ray 09/26/19 03:36 IMPRESSION: Lines in good position. Right greater than left airspace disease superimposed on chronic interstitial lung disease and component of COPD. Electronically Signed: Amparo Bah MD at 4:46 EDT , Service support , Chest CTA 09/26/19 12:03 IMPRESSION: Bibasilar consolidation more prominent in the right lower lobe with minimal pleural effusions. Emphysematous changes with infiltrates in the posterior aspect of the right upper lobe as well as in the medial aspect of the left upper lobe. No evidence of pulmonary embolism. Electronically Signed: Justin Love, at 14:24 EDT , Service support , Chest X-Ray 09/27/19 06:38 IMPRESSION: Improved atypical pneumonia with some residual right lower lobe pneumonia. Electronically Signed: Rodri Allred MD at 7:26 EDT Tel , Service support , Medical Necessity - Tobacco Use Smoking Status: Former smoker Tobacco Use: Non-smoker Assessment/Plan All Active Problems Septic shock (Acute) Acute respiratory failure with hypoxia (Acute) Suspected 2019 novel coronavirus infection (Acute) Cardiac enzymes elevated (Acute) Transaminitis (Acute) Hyperglycemia (Acute) RECOMMENDATIONS: 1. Continue empiric antimicrobials, bronchodilators and IV steroids. 2. Transition from propofol to Precedex to assist with weaning from invasive mechanical ventilatory support. 3. Wean FiO2 to maintain oxygen saturations at or above 90%. 4. Continue tube feeds as tolerated. 5. Continue appropriate ICU prophylaxis. 6. Await COVID test results. IMPRESSIONS: 1. Acute combined respiratory failure The patient presented to the hospital with impending respiratory failure and was emergently intubated in the emergency department. He does have an apparent history of COPD of unknown severity. Chest x-ray did reveal findings of bilateral airspace disease with what is likely some chronic interstitial changes. A follow-up CT chest did reveal evidence of multilobar pneumonia. The patient will remain on empiric antimicrobials, bronchodilators and IV steroids. Infectious work-up is pending, including coronavirus testing. Continue tube feeds and appropriate ICU prophylaxis. 2. Severe sepsis with concern for healthcare associated pneumonia and possible COVID 19 Infection The patients documented hypotension was likely secondary to sedating medication administration. The patient is currently hemodynamically stable. Recommend conservative use of fluids over concerns for coronavirus. In addition, the patient has underlying cardiac disease with a depressed ejection fraction. As noted above, broad-spectrum antimicrobials will be continued. Infectious diseases is currently following to assist with management. 3. Non-ST segment elevation NC/history of coronary artery disease status post past PCI/combined systolic and diastolic heart failure Unclear if the patient's presenting cardiac manifestation represents a primary cardiac event versus a type II event. The case was discussed with cardiology, who does not feel that the patient requires any intervention at this time. 4. History of tobacco dependency, currently in remission/COPD/hepatitis B/CLL Complicates care, management, recovery and prognosis. Continue home medications as indicated. Continue tube feeds as tolerated. TIME: 36 minutes of critical care time, independent of procedures, was spent addressing the patient's acute combined respiratory failure, severe sepsis, healthcare associated pneumonia, possible coronavirus infection, NSTEMI, review of all data and collaboration with the care team. [phone]) [id number] Critical care first hour
--- NOTE | 2019-09-28 07:07 | CPS ---
Pt.'s FiO2 & PEEP increased per Dr. Ramirez's order. Pt. desatted, started accumulated tenacious secretions & refused suctioning.
[2019-09-28] MEDS: Aspirin 81 MG TAB.CHEW GT (08:23)
[2019-09-28] MEDS: Clopidogrel Bisulfate 75 MG Tablet GT (08:24)
[2019-09-28] MEDS: Famotidine 20 MG Tablet GT ×2 (08:25→21:19)
[2019-09-28] MEDS: Enoxaparin 80 MG/0.8 ML Syringe 70 MG SC ×2 (08:26→20:18)
[2019-09-28] MEDS: Chlorhexidine 15 ML PO ×2 (08:29→20:18)
[2019-09-28] MEDS: fentaNYL drip 100 ML 10 MCG IV ×2 (09:20→18:50)
[2019-09-28] MEDS: Propofol 10MG/Ml 1,000 MG/100 ML Bottle 8.5 MG CONT INF (09:23)
--- NOTE | 2019-09-28 10:29 | PCM.PN.HOSP ---
Patient Problems: Active and Suspected Problems Septic shock (Acute) Acute respiratory failure with hypoxia (Acute) Suspected 2019 novel coronavirus infection (Acute) Cardiac enzymes elevated (Acute) Transaminitis (Acute) Hyperglycemia (Acute) Subjective: He failed a spontaneous breathing trial this morning, he remains intubated. He also increased his FiO2 and PEEP after having a mucous plug. Vitals/I&O's: Vital Signs Temp Pulse Resp BP Pulse Ox 99.6 F H 102 H 19 H 108/76 90 09/28/19 07:00 09/28/19 09:21 09/28/19 09:21 09/28/19 07:00 09/28/19 09:21 Oxygen Delivery Method Mechanical Ventilator Weight: 155 lb 13.869 oz Body Mass Index (BMI) 23.6 Intake and Output for Last 24 Hours 09/26/19 09/27/19 09/28/19 23:59 23:59 23:59 Intake Total 1620.54 / 1633.57 2621.25 / 2639.55 1067.37 / 1067.37 Output Total 1450 / 1450 1025 / 1175 350 / 350 Balance 170.54 / 183.57 1596.25 / 1464.55 717.37 / 717.37 General: - - Intubated and sedated HEENT: Atraumatic, PERRLA, Normocephalic Oral: Moist Mucosa Neck: Supple, No JVD Lungs: Normal air movement, No rhonchi, No rales, Diminished, Wheezes Cardiovascular: Regular rate, Regular Rhythm, Normal S1, Normal S2, No murmurs Abdomen: Soft, Non Tender, Non-Distended, No Hepato-splenomegaly Extremities: No edema, Capillary Refill Less than 3 Seconds Skin: No rashes, No breakdown Neurological: Intubated and sedated Psych/Mental Status: Intubated and sedated Microbiology Past 72 Hours 09/26/19 01:30 Blood Culture (Wb) - Right Forearm Blood Culture - Preliminary No growth in 48 hours. 09/26/19 01:30 Blood Culture (Wb) #2 - Right Hand Blood Culture - Preliminary No growth in 48 hours. 09/26/19 06:55 Sputum, Induced/Lukens Gram Stain - Final 09/26/19 06:55 Sputum, Induced/Lukens Respiratory Culture - Final 09/26/19 05:50 Urine Catheter - Enciso Legionella Antigen - Final 09/26/19 05:50 Urine Catheter - Enciso Streptococcus pneumoniae Antigen (M - Final 09/26/19 01:40 Mucosa - Nasopharyngeal Respiratory Panel (PCR) - Final 09/26/19 01:40 Mucosa - Nasopharyngeal Influenza Types A,B Direct FA (TANVIR) - Final Laboratory Results 09/27/19 03:15: Differential Comment COMMENT 09/27/19 16:32: POC Glucose 160 H 09/27/19 21:06: POC Glucose 182 H 09/28/19 02:43: POC Glucose 161 H 09/28/19 02:55: WBC 11.3 H, RBC 4.66, Hgb 13.1, Hct 41.4, MCV 88.8, MCH 28.1, MCHC 31.6 L, RDW Std Deviation 49.1 H, RDW Coeff of [place] 15.2 H, Plt Count 146 L, MPV 9.8, Immature Gran % (Auto) 0.600, Neut % (Auto) 84.2 H, Lymph % (Auto) 7.2 L, Day % (Auto) 8.0, Eos % (Auto) 0.0, Baso % (Auto) 0.0, Absolute Neuts (auto) 9.5 H, Absolute Lymphs (auto) 0.81 L, Nucleated RBC % 0 09/28/19 02:55: Sodium 141, Potassium 4.4, Chloride 104, Carbon Dioxide 32.0, Anion Gap 5, BUN 27 H, Creatinine 0.72, Estim Creat Clear Calc 99.97, Est GFR (MDRD) Af Amer 141, Est GFR (MDRD) Non-Af 116, BUN/Creatinine Ratio 37.5 H, Glucose 155 H, Calcium 8.3 L, Total Bilirubin 0.60, AST 34, ALT 62 H, Alkaline Phosphatase 86, Total Protein 6.4, Albumin 3.1 L, Globulin 3.3, Albumin/Globulin Ratio 0.9 Current Medications Acetaminophen (Tylenol) 650 mg RECTAL Q4H PRN PRN PRN Reason: Pain Score 1-10/Temp > 100.7 F Acetaminophen (Tylenol) 650 mg PO Q6H PRN PRN PRN Reason: Pain Score 1-10/Temp > 100.7 F Albuterol Sulfate (Ventolin Aerosols) 2.5 mg INHALATION Q2H PRN PRN PRN Reason: Dyspnea, wheezing Albuterol/Ipratropium (Duoneb) 3 ml INHALATION Q6H.RT [facility] Last Admin: 09/28/19 06:45 Dose: 3 ml Documented by: Aspirin (Aspirin, Baby) 81 mg GT DAILY@1000 [facility] Last Admin: 09/28/19 08:23 Dose: 81 mg Documented by: Atorvastatin Calcium (Lipitor) 80 mg GT QHS [facility] Last Admin: 09/27/19 21:09 Dose: 80 mg Documented by: Chlorhexidine Gluconate () 15 ml PO BID [facility] Last Admin: 09/28/19 08:29 Dose: 15 ml Documented by: Chlorhexidine Gluconate () 1 each TOPICAL DAILY [facility] Last Admin: 09/27/19 18:56 Dose: 1 each Documented by: Clopidogrel Bisulfate (Plavix) 75 mg GT DAILY [facility] Last Admin: 09/28/19 08:24 Dose: 75 mg Documented by: Dextrose (D50w Syringe) 0 gm IV X1 PRN; Protocol PRN Reason: Hypoglycemia Enoxaparin Sodium (Lovenox) 70 mg SC Q12@1000,2000 [facility] Last Admin: 09/28/19 08:26 Dose: 70 mg Documented by: Famotidine (Pepcid) 20 mg GT BID [facility] Last Admin: 09/28/19 08:25 Dose: 20 mg Documented by: Glucagon () 1 mg IM .X1 PRN PRN Reason: Hypoglycemia Fentanyl () 100 mls @ 5 mls/hr IV UD [facility]; Protocol Last Admin: 09/28/19 09:20 Dose: 100 mcg/hr, 10 mls/hr Documented by: Propofol (Diprivan) 1,000 mg in 100 mls @ 4.242 mls/hr CONT INF .Q12H [facility]; Protocol Last Admin: 09/28/19 09:23 Dose: 20 mcg/kg/min, 8.5 mls/hr Documented by: Sodium Chloride () 250 mls @ 15 mls/hr IV .[id number] PRN PRN Reason: Saline Flush Last Infusion: 09/28/19 06:25 Dose: 15 mls/hr Documented by: Sodium Chloride () 250 mls @ 15 mls/hr IV .[id number] PRN PRN Reason: Additional IVPB Infusion Piperacillin Sod/Tazobactam (Sod 3.375 gm/ Sodium Chloride) 50 mls @ 12.5 mls/hr IV Q8@0200,1000,1800 [facility] Last Admin: 09/28/19 08:31 Dose: 12.5 mls/hr Documented by: Enteral Nutritional Formula (Vital Af 1.2 Pieter Liquid) 1,000 mls @ 60 mls/hr GT .[id number] [facility] Last Admin: 09/28/19 00:03 Dose: 60 mls/hr Documented by: Insulin Human Lispro (Humalog Kwikpen (Bkc)) 0 unit SC 0400,1000,1600,2200 [facility]; Protocol Last Admin: 09/28/19 08:31 Dose: 1 unit Documented by: Magnesium Hydroxide (Milk Of Magnesia) 30 ml PO DAILY PRN PRN PRN Reason: Constipation Methylprednisolone (Solu-Medrol) 40 mg IV Q8@0200,1000,1800 [facility] Last Admin: 09/28/19 08:25 Dose: 40 mg Documented by: Nitroglycerin (Nitrostat) 0.4 mg SUBLINGUAL Q5M PRN PRN Reason: CARDIAC/CHEST PAIN Psyllium Hydrophilic Mucilloid (Metamucil) 1 packet PO DAILY PRN PRN PRN Reason: Constipation Senna/Docusate Sodium (Senokot-S, Helene-Colace) 2 tablet GT BID PRN PRN PRN Reason: Constipation Sodium Chloride () 10 - 40 ml IV UD PRN PRN Reason: SALINE FLUSH Last Admin: 09/28/19 02:46 Dose: 30 ml Documented by: Zinc Sulfate (Zinc Sulfate) 220 mg GT TID@0200,1000,1800 [facility] Last Admin: 09/28/19 08:24 Dose: 220 mg Documented by: STROKE Vital Signs/Narrative: Vital Signs Temp Pulse Resp BP Pulse Ox 09/28/19 09:21 102 H 19 H 90 09/28/19 07:00 99.6 F H 112 H 15 108/76 89 09/28/19 06:45 111 H 22 H 89 Medical Necessity - Tobacco Use Smoking Status: Former smoker Tobacco Use: Non-smoker Assessment/Plan All Active Problems Septic shock (Acute) Acute respiratory failure with hypoxia (Acute) Suspected 2018 novel coronavirus infection (Acute) Cardiac enzymes elevated (Acute) Transaminitis (Acute) Hyperglycemia (Acute) 1. Acute hypoxic hypercapnic respiratory failure secondary to acute COPD exacerbation/severe sepsis secondary to healthcare pneumonia with versus COVID-19 -CT of the chest did not show PE on admission -He does have wheezing and therefore is currently on steroids will continue -Continue with Zosyn, vancomycin was discontinued -Continue with DuoNeb -All cultures are negative, coronavirus test is still pending 2. 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 CLL -He is on entecavir at home -We will hold this medication DVT: Lovenox Inpatient E&M: 10200 Subs Hosp L2
--- NOTE | 2019-09-28 10:49 | CASEMGMT ---
Addendum entered by Josh Avendaño 09/28/19 15:35: COVID results still pending. If Resulted on Tuesday, please call Roselyn @ [facility]: x [phone] and update. They will then evaluate for transfer to [place]. Addendum entered by Josh Avendaño 09/28/19 14:08: Call received from Shilpi @ [place]. Clinicals reviewed verbally including vent settings. Per Shilpi, [place] doctor plans to call Dr. Turner to review pt's condition including if safe to transfer @ this time. Dr. Turner was updated by SHANIKA SINGH via [employer] and is agreeable to speak with him. Addendum entered by Josh Avendaño 09/28/19 13:06: Attempted x 2 to fax clinical. Unable to have it send properly. Reattempted on another fax machine-also did not go through saying line was busy. Message left with Shilpi to update and request call back with new fax # to try. Heidi KELLOGG Original Note: SHANIKA SINGH Note: Call to [facility] to FRANCISCO [place]obbins. x [phone]. Updated COVID-19 testing has not been resulted yet. Clinical information faxed to . Will update as soon as COVID-19 results are returned, and will need to have physician assess if pt is medically stable for transport to [place] if bed were available. Heidi KELLOGG
[2019-09-28 10:51] LABS: Bedside Glucose 182 mg/dL (70-110)
--- NOTE | 2019-09-28 14:03 | PCM.PN.ID ---
Patient Problems: Active and Suspected Problems Septic shock (Acute) Acute respiratory failure with hypoxia (Acute) Suspected 2019 novel coronavirus infection (Acute) Cardiac enzymes elevated (Acute) Transaminitis (Acute) Hyperglycemia (Acute) Subjective: Mucus plug and failed SBT this AM, FiO2 went up to 100%. Feeling ok, wants ETT out. - Physical Exam Vitals/I&O's: Vital Signs Temp Pulse Resp BP Pulse Ox 99.3 F H 96 26 H 117/76 95 09/28/19 10:00 09/28/19 11:00 09/28/19 10:26 09/28/19 10:00 09/28/19 10:26 Oxygen Delivery Method Mechanical Ventilator Weight: 70.7 kg Body Mass Index (BMI) 23.6 Intake and Output for Last 24 Hours 09/26/19 09/27/19 09/28/19 23:59 23:59 23:59 Intake Total 1620.54 / 1633.57 2621.25 / 2639.55 1536.13 / 1536.13 Output Total 1450 / 1450 1025 / 1175 1100 / 1100 Balance 170.54 / 183.57 1596.25 / 1464.55 436.13 / 436.13 General: Alert, Cooperative, No apparent distress Lungs: Diminished Cardiovascular: Tachycardic Abdomen: Soft, Non Tender, Non-Distended Skin: No rashes Microbiology Past 72 Hours 09/26/19 01:30 Blood Culture (Wb) - Right Forearm Blood Culture - Preliminary No growth in 48 hours. 09/26/19 01:30 Blood Culture (Wb) #2 - Right Hand Blood Culture - Preliminary No growth in 48 hours. 09/26/19 06:55 Sputum, Induced/Lukens Gram Stain - Final 09/26/19 06:55 Sputum, Induced/Lukens Respiratory Culture - Final 09/26/19 05:50 Urine Catheter - Enciso Legionella Antigen - Final 09/26/19 05:50 Urine Catheter - Enciso Streptococcus pneumoniae Antigen (M - Final 09/26/19 01:40 Mucosa - Nasopharyngeal Respiratory Panel (PCR) - Final 09/26/19 01:40 Mucosa - Nasopharyngeal Influenza Types A,B Direct FA (TANVIR) - Final Laboratory Results 09/27/19 03:15: Differential Comment COMMENT 09/27/19 16:32: POC Glucose 160 H 09/27/19 21:06: POC Glucose 182 H 09/28/19 02:43: POC Glucose 161 H 09/28/19 02:55: WBC 11.3 H, RBC 4.66, Hgb 13.1, Hct 41.4, MCV 88.8, MCH 28.1, MCHC 31.6 L, RDW Std Deviation 49.1 H, RDW Coeff of [place] 15.2 H, Plt Count 146 L, MPV 9.8, Immature Gran % (Auto) 0.600, Neut % (Auto) 84.2 H, Lymph % (Auto) 7.2 L, [place] % (Auto) 8.0, Eos % (Auto) 0.0, Baso % (Auto) 0.0, Absolute Neuts (auto) 9.5 H, Absolute Lymphs (auto) 0.81 L, Nucleated RBC % 0 09/28/19 02:55: Sodium 141, Potassium 4.4, Chloride 104, Carbon Dioxide 32.0, Anion Gap 5, BUN 27 H, Creatinine 0.72, Estim Creat Clear Calc 99.97, Est GFR (MDRD) Af Amer 141, Est GFR (MDRD) Non-Af 116, BUN/Creatinine Ratio 37.5 H, Glucose 155 H, Calcium 8.3 L, Total Bilirubin 0.60, AST 34, ALT 62 H, Alkaline Phosphatase 86, Total Protein 6.4, Albumin 3.1 L, Globulin 3.3, Albumin/Globulin Ratio 0.9 09/28/19 08:17: POC Glucose 182 H Current Medications Acetaminophen (Tylenol) 650 mg RECTAL Q4H PRN PRN PRN Reason: Pain Score 1-10/Temp > 100.7 F Acetaminophen (Tylenol) 650 mg PO Q6H PRN PRN PRN Reason: Pain Score 1-10/Temp > 100.7 F Albuterol Sulfate (Ventolin Aerosols) 2.5 mg INHALATION Q2H PRN PRN PRN Reason: Dyspnea, wheezing Albuterol/Ipratropium (Duoneb) 3 ml INHALATION Q6H.RT COUNTS INCLUDE 234 BEDS AT THE [facility] Last Admin: 09/28/19 06:45 Dose: 3 ml Documented by: Aspirin (Aspirin, Baby) 81 mg GT DAILY@1000 MAGGIE Last Admin: 09/28/19 08:23 Dose: 81 mg Documented by: Atorvastatin Calcium (Lipitor) 80 mg GT QHS COUNTS INCLUDE 234 BEDS AT THE [facility] Last Admin: 09/27/19 21:09 Dose: 80 mg Documented by: Chlorhexidine Gluconate () 15 ml PO BID COUNTS INCLUDE 234 BEDS AT THE [facility] Last Admin: 09/28/19 08:29 Dose: 15 ml Documented by: Chlorhexidine Gluconate () 1 each TOPICAL DAILY COUNTS INCLUDE 234 BEDS AT THE [facility] Last Admin: 09/27/19 18:56 Dose: 1 each Documented by: Clopidogrel Bisulfate (Plavix) 75 mg GT DAILY COUNTS INCLUDE 234 BEDS AT THE [facility] Last Admin: 09/28/19 08:24 Dose: 75 mg Documented by: Dextrose (D50w Syringe) 0 gm IV X1 PRN; Protocol PRN Reason: Hypoglycemia Enoxaparin Sodium (Lovenox) 70 mg SC Q12@1000,2000 COUNTS INCLUDE 234 BEDS AT THE [facility] Last Admin: 09/28/19 08:26 Dose: 70 mg Documented by: Famotidine (Pepcid) 20 mg GT BID COUNTS INCLUDE 234 BEDS AT THE [facility] Last Admin: 09/28/19 08:25 Dose: 20 mg Documented by: Glucagon () 1 mg IM .X1 PRN PRN Reason: Hypoglycemia Fentanyl () 100 mls @ 5 mls/hr IV UD COUNTS INCLUDE 234 BEDS AT THE [facility]; Protocol Last Titration: 09/28/19 12:00 Dose: 100 mcg/hr, 10 mls/hr Documented by: Sodium Chloride () 250 mls @ 15 mls/hr IV .[id number] PRN PRN Reason: Saline Flush Last Infusion: 09/28/19 06:25 Dose: 15 mls/hr Documented by: Sodium Chloride () 250 mls @ 15 mls/hr IV .[id number] PRN PRN Reason: Additional IVPB Infusion Piperacillin Sod/Tazobactam (Sod 3.375 gm/ Sodium Chloride) 50 mls @ 12.5 mls/hr IV Q8@0200,1000,1800 COUNTS INCLUDE 234 BEDS AT THE [facility] Last Admin: 09/28/19 08:31 Dose: 12.5 mls/hr Documented by: Enteral Nutritional Formula (Vital Af 1.2 Pieter Liquid) 1,000 mls @ 60 mls/hr GT .[id number] COUNTS INCLUDE 234 BEDS AT THE [facility] Last Admin: 09/28/19 00:03 Dose: 60 mls/hr Documented by: Dexmedetomidine HCl 400 mcg/ (Sodium Chloride) 100 mls @ 8.838 mls/hr CONT INF .[id number] COUNTS INCLUDE 234 BEDS AT THE [facility]; Protocol Last Titration: 09/28/19 12:30 Dose: 0.6 mcg/kg/hr, 10.6 mls/hr Documented by: Insulin Human Lispro (Humalog Kwikpen (Bkc)) 0 unit SC 0400,1000,1600,2200 MAGGIE; Protocol Last Admin: 09/28/19 08:31 Dose: 1 unit Documented by: Magnesium Hydroxide (Milk Of Magnesia) 30 ml PO DAILY PRN PRN PRN Reason: Constipation Methylprednisolone (Solu-Medrol) 40 mg IV Q8@0200,1000,1800 MAGGIE Last Admin: 09/28/19 08:25 Dose: 40 mg Documented by: Nitroglycerin (Nitrostat) 0.4 mg SUBLINGUAL Q5M PRN PRN Reason: CARDIAC/CHEST PAIN Psyllium Hydrophilic Mucilloid (Metamucil) 1 packet PO DAILY PRN PRN PRN Reason: Constipation Senna/Docusate Sodium (Senokot-S, Helene-Colace) 2 tablet GT BID PRN PRN PRN Reason: Constipation Sodium Chloride () 10 - 40 ml IV UD PRN PRN Reason: SALINE FLUSH Last Admin: 09/28/19 02:46 Dose: 30 ml Documented by: Zinc Sulfate (Zinc Sulfate) 220 mg GT TID@0200,1000,1800 MAGGIE Last Admin: 09/28/19 08:24 Dose: 220 mg Documented by: Medical Necessity - Tobacco Use Smoking Status: Former smoker Tobacco Use: Non-smoker Route of nutrition/ use of supplements: [] Nutritional Intake: [] IV Site: [] Enciso Catheter: [] - Assessment/Plan Antibiotics: [] Assessment/Plan: [] Active and Suspected Problems Septic shock (Acute) Acute respiratory failure with hypoxia (Acute) Suspected 2018 novel coronavirus infection (Acute) Cardiac enzymes elevated (Acute) Transaminitis (Acute) Hyperglycemia (Acute) septic shock with acute hypoxic resp failure - covid pending from bronchial wash. Resp pcr panel neg. UAg neg. MRSA screen neg. No PE seen on CTA. Continue zosyn. Wbc improved today. Will follow, d/w Dr. Ramirez
[2019-09-28 16:20] LABS: Bedside Glucose 151 mg/dL (70-110)
--- NOTE | 2019-09-28 17:00 | NURSING ---
education re chronic illness deferred till acute illness resolving
--- NOTE | 2019-09-28 20:30 | NURSING ---
Pts daughter given update on pt at this time.
[2019-09-28] MEDS: Atorvastatin Calcium 80 MG Tablet GT (21:19)
[2019-09-28 22:06] LABS: Bedside Glucose 185 mg/dL (70-110)
[2019-09-29] VITALS (39 sets, daily range): BP systolic 89–168; BP diastolic 46–93; PULSE 68–113; RESP 10–21; TEMP 36.2–37.4; O2SAT 92–99
[2019-09-29] MEDS: Ipratropium/Albuterol Sulfate 3 ML AMPUL.NEB INHALATION ×4 (01:29→19:10)
[2019-09-29] MEDS: Insulin Lispro 100 UNIT/ML INSULN.PEN SC (04:24)
[2019-09-29] MEDS: 0.9% Saline Lock 10 ML Syringe IV ×2 (04:25→17:02)
[2019-09-29 04:59] LABS: Absolute Lymphocyte Count 0.61 X10^3/uL (0.83-4.51); Absolute Neutrophil Count 5.7 X10^3/uL (2.0-7.7); Differential Indicated SCAN CRITERIA MET; Hematocrit 39.2 % (40-54); Hemoglobin 12.5 g/dL (13.0-16.5); Lymphocyte # 0.61 X10^3/ul (4.0); Lymphocyte % 8.7 % (19-41); Mean Corp Hgb Conc 31.9 g/dL (32-36); Mean Corpuscular Hgb 28.4 pg (27.0-32.0); Mean Corpuscular Volume 89.1 fL (80-94); Mean Platelet Vol. 10.2 fl (6.2-12.0); Monocyte# 0.66 X10^3/uL; Monocyte% 9.4 % (0-10); NRBC Flagged by Analyzer 0 % (0-5); Neutrophil # 5.68 X10^3/uL (2.7-7.7); Neutrophil % 81.2 % (47-70); POSITIVE MORPHOLOGY YES; Platelet Count 126 K/mm3 (150-450); RBC Distribution Width CV 15.1 % (11.6-14.6); RBC Distribution Width SD 48.9 fl (35.1-43.9)
[2019-09-29 05:01] LABS: Bedside Glucose 166 mg/dL (70-110)
[2019-09-29 05:16] LABS: ALB/GLOB Ratio 0.9 RATIO (0.9-2.4); AST(SGOT) 26 U/L (15-37); Alanine Aminotransfer ALT/SGPT 49 U/L (16-61); Albumin, Serum 2.8 g/dL (3.2-5.0); Alkaline Phosphatase 72 U/L (45-117); Anion Gap 3 (5-15); BUN 30 mg/dL (7-18); BUN/Creat Ratio 49.6 RATIO (10-20); Chloride 104 mmol/L (98-107); EST Glomerular Filtration Rate 142 mL/min (>60); Est Glom Filt Rate - Afr Amer 172 mL/min (>60); Estimated Creatinine Clearance 122.74 ml/min; Globulin 3.2 g/dL (2.2-4.2); Glucose 157 mg/dL (74-106); Potassium 4.6 mmol/L (3.5-5.1); Sodium Level 141 mmol/L (136-145)
[2019-09-29 05:20] LABS: Differential Comment SCANNED; Reactive Lymphocyte RARE
--- NOTE | 2019-09-29 06:14 | PN_ITS ---
Subjective: The patient was seen and examined at the bedside this morning. Events from the last 24 hours have been reviewed. The patient is currently afebrile, hemodynamically stable and maintaining appropriate oxygen saturations on a spontaneous mode of mechanical ventilation with an FiO2 requirement of 40%. The patient's COVID test was found to be negative. The patient passed with breathing trial this morning with the assistance of Precedex. He was, therefore, extubated under my direct supervision this morning. Objective: The patient's most recent lab work, culture data and imaging studies have all been personally reviewed. Surface echocardiogram revealed normal LV size with an ejection fraction of 25 to 30%. Stage II diastolic dysfunction was noted along with hypokinesis of the inferior wall, lateral wall and basal septum. Pulmonary artery systolic pressure was estimated to be 35 mmHg. CTA chest revealed no evidence for PE. There was evidence of bilateral interstitial thickening, emphysematous changes, and airspace disease/consolidation in the lower lobes, primarily on the right side. Strep and urine Legionella antigens were negative. Respiratory viral panel was negative. Sputum and blood cultures have shown no growth to date. General: - - Intubated and mechanically ventilated. Tolerating SBT without issue. HEENT: Atraumatic, Normocephalic Oral: No Gingival or Mucosal Lesions/ Ulcerations, - - Endotracheal and OG tubes in place. Neck: Supple, No Nodes, Trachea Midline Lungs: No rhonchi, No wheeze, No rales, Diminished Cardiovascular: Regular rate, Normal S1, Normal S2, No murmurs, - - NSR on telemetry Abdomen: Bowel Sounds Present, Soft, Non Tender Extremities: No clubbing, No cyanosis, No edema Skin: No breakdown Musculoskeletal: No Muscle Wasting Lymphatic: No Cervical, Supraclavicular, or Inguinal Adenopathy Neurological: Neuro grossly intact, - - Following commands appropriately. Psych/Mental Status: Anxious Vital Signs Temp Pulse Resp BP Pulse Ox 99.0 F 68 10 L 99/65 97 09/29/19 05:00 09/29/19 05:08 09/29/19 05:08 09/29/19 05:00 09/29/19 05:08 Oxygen Delivery Method Mechanical Ventilator Weight: 155 lb 13.869 oz Body Mass Index (BMI) 23.6 Intake and Output for Last 24 Hours 09/27/19 09/28/19 09/29/19 23:59 23:59 23:59 Intake Total 2621.25 / 2639.55 2930.18 / 2950.78 966.03 / 966.03 Output Total 1025 / 1175 1675 / 1675 175 / 175 Balance 1596.25 / 1464.55 1255.18 / 1275.78 791.03 / 791.03 Labs (Last 48 Hours) 09/26/19 09/27/19 09/27/19 06:58 03:15 08:43 WBC RBC Hgb Hct MCV MCH MCHC RDW Std Deviation RDW Coeff of [place] Plt Count MPV Immature Gran % (Auto) Neut % (Auto) Lymph % (Auto) [place] % (Auto) Eos % (Auto) Baso % (Auto) Absolute Neuts (auto) Absolute Lymphs (auto) Nucleated RBC % Differential Comment COMMENT Reactive Lymphocytes Sodium Potassium Chloride Carbon Dioxide Anion Gap BUN Creatinine Estim Creat Clear Calc Est GFR (MDRD) Af Amer Est GFR (MDRD) Non-Af BUN/Creatinine Ratio Glucose Calcium Total Bilirubin AST ALT Alkaline Phosphatase Total Protein Albumin Globulin Albumin/Globulin Ratio COVID-19 (DWAYNE) SEE COMMENT POC Glucose 157 H 09/27/19 09/27/19 09/28/19 16:32 21:06 02:43 WBC RBC Hgb Hct MCV MCH MCHC RDW Std Deviation RDW Coeff of [place] Plt Count MPV Immature Gran % (Auto) Neut % (Auto) Lymph % (Auto) [place] % (Auto) Eos % (Auto) Baso % (Auto) Absolute Neuts (auto) Absolute Lymphs (auto) Nucleated RBC % Differential Comment Reactive Lymphocytes Sodium Potassium Chloride Carbon Dioxide Anion Gap BUN Creatinine Estim Creat Clear Calc Est GFR (MDRD) Af Amer Est GFR (MDRD) Non-Af BUN/Creatinine Ratio Glucose Calcium Total Bilirubin AST ALT Alkaline Phosphatase Total Protein Albumin Globulin Albumin/Globulin Ratio COVID-19 (DWAYNE) POC Glucose 160 H 182 H 161 H 09/28/19 09/28/19 09/28/19 02:55 02:55 08:17 WBC 11.3 H RBC 4.66 Hgb 13.1 Hct 41.4 MCV 88.8 MCH 28.1 MCHC 31.6 L RDW Std Deviation 49.1 H RDW Coeff of [place] 15.2 H Plt Count 146 L MPV 9.8 Immature Gran % (Auto) 0.600 Neut % (Auto) 84.2 H Lymph % (Auto) 7.2 L [place] % (Auto) 8.0 Eos % (Auto) 0.0 Baso % (Auto) 0.0 Absolute Neuts (auto) 9.5 H Absolute Lymphs (auto) 0.81 L Nucleated RBC % 0 Differential Comment Reactive Lymphocytes Sodium 141 Potassium 4.4 Chloride 104 Carbon Dioxide 32.0 Anion Gap 5 BUN 27 H Creatinine 0.72 Estim Creat Clear Calc 99.97 Est GFR (MDRD) Af Amer 141 Est GFR (MDRD) Non-Af 116 BUN/Creatinine Ratio 37.5 H Glucose 155 H Calcium 8.3 L Total Bilirubin 0.60 AST 34 ALT 62 H Alkaline Phosphatase 86 Total Protein 6.4 Albumin 3.1 L Globulin 3.3 Albumin/Globulin Ratio 0.9 COVID-19 (DWAYNE) POC Glucose 182 H 09/28/19 09/28/19 09/29/19 16:16 21:16 04:21 WBC RBC Hgb Hct MCV MCH MCHC RDW Std Deviation RDW Coeff of [place] Plt Count MPV Immature Gran % (Auto) Neut % (Auto) Lymph % (Auto) [place] % (Auto) Eos % (Auto) Baso % (Auto) Absolute Neuts (auto) Absolute Lymphs (auto) Nucleated RBC % Differential Comment Reactive Lymphocytes Sodium Potassium Chloride Carbon Dioxide Anion Gap BUN Creatinine Estim Creat Clear Calc Est GFR (MDRD) Af Amer Est GFR (MDRD) Non-Af BUN/Creatinine Ratio Glucose Calcium Total Bilirubin AST ALT Alkaline Phosphatase Total Protein Albumin Globulin Albumin/Globulin Ratio COVID-19 (DWAYNE) POC Glucose 151 H 185 H 166 H 09/29/19 09/29/19 04:25 04:25 WBC 7.0 RBC 4.40 L Hgb 12.5 L Hct 39.2 L MCV 89.1 MCH 28.4 MCHC 31.9 L RDW Std Deviation 48.9 H RDW Coeff of [place] 15.1 H Plt Count 126 L MPV 10.2 Immature Gran % (Auto) 0.700 Neut % (Auto) 81.2 H Lymph % (Auto) 8.7 L [place] % (Auto) 9.4 Eos % (Auto) 0.0 Baso % (Auto) 0.0 Absolute Neuts (auto) 5.7 Absolute Lymphs (auto) 0.61 L Nucleated RBC % 0 Differential Comment SCANNED Reactive Lymphocytes RARE Sodium 141 Potassium 4.6 Chloride 104 Carbon Dioxide 34.0 H Anion Gap 3 L BUN 30 H Creatinine 0.60 L Estim Creat Clear Calc 122.74 Est GFR (MDRD) Af Amer 172 Est GFR (MDRD) Non-Af 142 BUN/Creatinine Ratio 49.6 H Glucose 157 H Calcium 8.0 L Total Bilirubin 0.50 AST 26 ALT 49 Alkaline Phosphatase 72 Total Protein 6.0 L Albumin 2.8 L Globulin 3.2 Albumin/Globulin Ratio 0.9 COVID-19 (DWAYNE) POC Glucose Microbiology 09/26/19 01:30 Blood Culture (Wb) - Right Forearm Blood Culture - Preliminary No growth in 48 hours. 09/26/19 01:30 Blood Culture (Wb) #2 - Right Hand Blood Culture - Preliminary No growth in 48 hours. 09/26/19 06:55 Sputum, Induced/Lukens Gram Stain - Final 09/26/19 06:55 Sputum, Induced/Lukens Respiratory Culture - Final Clinical Impression(s) from Imaging Studies Chest X-Ray 09/26/19 01:33 IMPRESSION: Lines in good position. Hyperinflation, chronic interstitial lung disease, superimposed inflammatory/infectious etiology off mid and lower lung parenchyma right greater than left lung. Electronically Signed: Amparo Bah MD at 3:17 EDT , Service support , Chest X-Ray 09/26/19 03:36 IMPRESSION: Lines in good position. Right greater than left airspace disease superimposed on chronic interstitial lung disease and component of COPD. Electronically Signed: Amparo Bah MD at 4:46 EDT , Service support , Chest CTA 09/26/19 12:03 IMPRESSION: Bibasilar consolidation more prominent in the right lower lobe with minimal pleural effusions. Emphysematous changes with infiltrates in the posterior aspect of the right upper lobe as well as in the medial aspect of the left upper lobe. No evidence of pulmonary embolism. Electronically Signed: Justin Love, at 14:24 EDT , Service support , Chest X-Ray 09/27/19 06:38 IMPRESSION: Improved atypical pneumonia with some residual right lower lobe pneumonia. Electronically Signed: Rodri Allred MD at 7:26 EDT Tel , Service support , Medical Necessity - Tobacco Use Smoking Status: Former smoker Tobacco Use: Non-smoker Assessment/Plan All Active Problems Septic shock (Acute) Acute respiratory failure with hypoxia (Acute) Suspected 2019 novel coronavirus infection (Acute) Cardiac enzymes elevated (Acute) Transaminitis (Acute) Hyperglycemia (Acute) RECOMMENDATIONS: 1. Proceed with a trial of extubation. 2. Once extubated, wean supplemental oxygen to maintain saturations at or above 90%. 3. Wean Precedex to off. Consider starting PO Buspar, given ongoing anxiety. 4. Bedside swallow evaluation prior to advancing diet. 5. Continue scheduled bronchodilators and IV steroids. We will plan to transition the patient to p.o. prednisone tomorrow. 6. Continue empiric antimicrobials with plans to complete a total 7-day treatment course. IMPRESSIONS: 1. Acute combined respiratory failure The patient presented to the hospital with impending respiratory failure and was emergently intubated in the emergency department. He does have an apparent history of COPD of unknown severity. Chest x-ray did reveal findings of bilateral airspace disease with what is likely some chronic interstitial changes. A follow-up CT chest did reveal evidence of multilobar pneumonia. The patient has been maintained on empiric antimicrobials, bronchodilators and IV steroids. Infectious work-up has been unrevealing, including a negative coronavirus test. The patient improved from a respiratory perspective and was able to be extubated on the morning of September 28. At this time, his supplemental oxygen will be weaned to maintain saturations at or above 90%. Encourage incentive spirometer use and mobilize patient as tolerated. Bedside swallow evaluation to be completed prior to advancing diet. 2. Severe sepsis with concern for healthcare associated pneumonia and possible COVID 19 Infection The patients documented hypotension was likely secondary to sedating medication administration. The patient is currently hemodynamically stable. In addition, the patient has underlying cardiac disease with a depressed ejection fraction. As noted above, broad-spectrum antimicrobials will be continued. Infectious diseases is currently following to assist with management. 3. Non-ST segment elevation CO/history of coronary artery disease status post past PCI/combined systolic and diastolic heart failure Unclear if the patient's presenting cardiac manifestation represents a primary cardiac event versus a type II event. The case was discussed with cardiology, who does not feel that the patient requires any intervention at this time. 4. History of tobacco dependency, currently in remission/COPD/hepatitis B/CLL Complicates care, management, recovery and prognosis. Continue home medications as indicated. Physical therapy to work with the patient. TIME: 36 minutes of critical care time, independent of procedures, was spent addressing the patient's acute combined respiratory failure, severe sepsis, healthcare associated pneumonia, NSTEMI, review of all data and collaboration with the care team. [id number]) [id number] Critical care first hour
--- NOTE | 2019-09-29 06:35 | NURSING ---
Pt extubated at this time. On 3lnc and tolerating well.
[2019-09-29] MEDS: Clopidogrel Bisulfate 75 MG Tablet GT (09:17)
[2019-09-29] MEDS: Aspirin 81 MG TAB.CHEW GT (09:17)
[2019-09-29] MEDS: Enoxaparin 80 MG/0.8 ML Syringe 70 MG SC ×2 (09:18→21:27)
[2019-09-29] MEDS: CHLORHEXIDINE GLUC 2% CLOTH 1 EACH TOWELETTE TOPICAL (10:34)
[2019-09-29] MEDS: busPIRone 5 MG Tablet 10 MG PO ×2 (10:34→21:25)
--- NOTE | 2019-09-29 12:50 | CM.UR ---
Participated in interdisciplinary rounds this am. patient was extubated this am and is currently on 2 liter o2 per nc. [facility] about [facility]. Daughter and patient were previously requesting transfer to their. At this point the patient doesn't feel it is worth it. Dr. Ramirez agrees as he will be discharged in the next 2 days as long as he continues to improve. Dr. Ramirez stated that patient's covid-19 was negative. I called Roselyn at [place] transfer center. She took update but states there was no decision to actually transfer him. States that he should stay here under his MCR. States he has no transportation benefits and is not service connected. Alerted him that his covid-19 was negative. She stated to have cm call Shilpi on Tuesday to give update and then to fax dc summary when available. Lucille Morales RN, CCM.
--- NOTE | 2019-09-29 13:53 | PN_ITS ---
Patient Problems: Active and Suspected Problems Septic shock (Acute) Acute respiratory failure with hypoxia (Acute) Suspected 2019 novel coronavirus infection (Acute) Cardiac enzymes elevated (Acute) Transaminitis (Acute) Hyperglycemia (Acute) Subjective: Extubated, and doing well. No issues overnight Vitals/I&O's: Vital Signs Temp Pulse Resp BP Pulse Ox 98 F 103 H 19 H 138/74 H 93 09/29/19 12:00 09/29/19 13:44 09/29/19 13:44 09/29/19 13:00 09/29/19 13:00 Oxygen Flow Rate (L/min) 2 Oxygen Delivery Method Nasal Cannula Weight: 155 lb 13.869 oz Body Mass Index (BMI) 23.6 Intake and Output for Last 24 Hours 09/27/19 09/28/19 09/29/19 23:59 23:59 23:59 Intake Total 2621.25 / 2639.55 2930.18 / 2950.78 1389.75 / 1389.75 Output Total 1025 / 1175 1675 / 1675 825 / 825 Balance 1596.25 / 1464.55 1255.18 / 1275.78 564.75 / 564.75 General: Alert, Oriented x3, Cooperative, No apparent distress HEENT: Atraumatic, PERRLA, EOMI, Normocephalic Oral: Moist Mucosa Neck: Supple, No JVD Lungs: Clear to auscultation, Normal air movement, No rhonchi, No wheeze, No rales, Diminished Cardiovascular: Regular rate, Regular Rhythm, Normal S1, Normal S2, No murmurs Abdomen: Soft, Non Tender, Non-Distended, No Hepato-splenomegaly Extremities: No edema, Capillary Refill Less than 3 Seconds Skin: No rashes, No breakdown Neurological: Neuro grossly intact, Sensory exam intact to light touch and pain Psych/Mental Status: Normal Affect, Appropriate Microbiology Past 72 Hours 09/26/19 01:30 Blood Culture (Wb) - Right Forearm Blood Culture - Preliminary No growth in 48 hours. 09/26/19 01:30 Blood Culture (Wb) #2 - Right Hand Blood Culture - Preliminary No growth in 48 hours. 09/26/19 06:55 Sputum, Induced/Lukens Gram Stain - Final 09/26/19 06:55 Sputum, Induced/Lukens Respiratory Culture - Final Laboratory Results 09/26/19 06:58: COVID-19 (DWAYNE) SEE COMMENT 09/28/19 16:16: POC Glucose 151 H 09/28/19 21:16: POC Glucose 185 H 09/29/19 04:21: POC Glucose 166 H 09/29/19 04:25: WBC 7.0, RBC 4.40 L, Hgb 12.5 L, Hct 39.2 L, MCV 89.1, MCH 28.4, MCHC 31.9 L, RDW Std Deviation 48.9 H, RDW Coeff of [place] 15.1 H, Plt Count 126 L, MPV 10.2, Immature Gran % (Auto) 0.700, Neut % (Auto) 81.2 H, Lymph % (Auto) 8.7 L, [place] % (Auto) 9.4, Eos % (Auto) 0.0, Baso % (Auto) 0.0, Absolute Neuts (auto) 5.7, Absolute Lymphs (auto) 0.61 L, Nucleated RBC % 0, Differential Comment SCANNED, Reactive Lymphocytes RARE 09/29/19 04:25: Sodium 141, Potassium 4.6, Chloride 104, Carbon Dioxide 34.0 H, Anion Gap 3 L, BUN 30 H, Creatinine 0.60 L, Estim Creat Clear Calc 122.74, Est GFR (MDRD) Af Amer 172, Est GFR (MDRD) Non-Af 142, BUN/Creatinine Ratio 49.6 H, Glucose 157 H, Calcium 8.0 L, Total Bilirubin 0.50, AST 26, ALT 49, Alkaline Phosphatase 72, Total Protein 6.0 L, Albumin 2.8 L, Globulin 3.2, Albumin/Globulin Ratio 0.9 Current Medications Acetaminophen (Tylenol) 650 mg RECTAL Q4H PRN PRN PRN Reason: Pain Score 1-10/Temp > 100.7 F Acetaminophen (Tylenol) 650 mg PO Q6H PRN PRN PRN Reason: Pain Score 1-10/Temp > 100.7 F Albuterol Sulfate (Ventolin Aerosols) 2.5 mg INHALATION Q2H PRN PRN PRN Reason: Dyspnea, wheezing Albuterol/Ipratropium (Duoneb) 3 ml INHALATION Q6H.RT [facility] Last Admin: 09/29/19 13:43 Dose: 3 ml Documented by: Aspirin (Aspirin, Baby) 81 mg GT DAILY@1000 [facility] Last Admin: 09/29/19 09:17 Dose: 81 mg Documented by: Atorvastatin Calcium (Lipitor) 80 mg GT QHS [facility] Last Admin: 09/28/19 21:19 Dose: 80 mg Documented by: Buspirone HCl (Buspar) 10 mg PO BID [facility] Last Admin: 09/29/19 10:34 Dose: 10 mg Documented by: Chlorhexidine Gluconate () 1 each TOPICAL DAILY [facility] Last Admin: 09/29/19 10:34 Dose: 1 each Documented by: Clopidogrel Bisulfate (Plavix) 75 mg GT DAILY [facility] Last Admin: 09/29/19 09:17 Dose: 75 mg Documented by: Dextrose (D50w Syringe) 0 gm IV X1 PRN; Protocol PRN Reason: Hypoglycemia Enoxaparin Sodium (Lovenox) 70 mg SC Q12@1000,2000 [facility] Last Admin: 09/29/19 09:18 Dose: 70 mg Documented by: Glucagon () 1 mg IM .X1 PRN PRN Reason: Hypoglycemia Sodium Chloride () 250 mls @ 15 mls/hr IV .[id number] PRN PRN Reason: Saline Flush Last Infusion: 09/29/19 10:17 Dose: 0 mls/hr Documented by: Sodium Chloride () 250 mls @ 15 mls/hr IV .[id number] PRN PRN Reason: Additional IVPB Infusion Piperacillin Sod/Tazobactam (Sod 3.375 gm/ Sodium Chloride) 50 mls @ 12.5 mls/hr IV Q8@0200,1000,1800 [facility] Last Infusion: 09/29/19 13:18 Dose: Infused Documented by: Magnesium Hydroxide (Milk Of Magnesia) 30 ml PO DAILY PRN PRN PRN Reason: Constipation Methylprednisolone (Solu-Medrol) 40 mg IV Q8@0200,1000,1800 [facility] Last Admin: 09/29/19 09:17 Dose: 40 mg Documented by: Nitroglycerin (Nitrostat) 0.4 mg SUBLINGUAL Q5M PRN PRN Reason: CARDIAC/CHEST PAIN Psyllium Hydrophilic Mucilloid (Metamucil) 1 packet PO DAILY PRN PRN PRN Reason: Constipation Senna/Docusate Sodium (Senokot-S, Helene-Colace) 2 tablet GT BID PRN PRN PRN Reason: Constipation Sodium Chloride () 10 - 40 ml IV UD PRN PRN Reason: SALINE FLUSH Last Admin: 09/29/19 04:25 Dose: 30 ml Documented by: STROKE Vital Signs/Narrative: Vital Signs Temp Pulse Resp BP BP Pulse Ox 09/29/19 13:44 103 H 19 H 09/29/19 13:00 100 14 138/74 H 93 09/29/19 12:00 98 F 93 15 123/74 H 94 09/29/19 11:06 104 H 09/29/19 11:00 102 H 21 H 123/74 H 94 09/29/19 10:00 98.1 F 95 16 106/87 H 93 Medical Necessity - Tobacco Use Smoking Status: Former smoker Tobacco Use: Non-smoker Assessment/Plan All Active Problems Septic shock (Acute) Acute respiratory failure with hypoxia (Acute) Suspected 2018 novel coronavirus infection (Acute) Cardiac enzymes elevated (Acute) Transaminitis (Acute) Hyperglycemia (Acute) 1. Acute hypoxic hypercapnic respiratory failure secondary to acute COPD exacerbation/severe sepsis secondary to healthcare pneumonia with versus COVID- 19 -CT of the chest did not show PE on admission -He does have wheezing and therefore is currently on steroids will continue -Continue with Zosyn, vancomycin was discontinued -Continue with DuoNeb -All cultures are negative, coronavirus test is negative 2. 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 CLL -He is on entecavir at home -We will hold this medication DVT: Lovenox Inpatient E&M: 06162 Subs Hosp L2
[2019-09-29] MEDS: Atorvastatin Calcium 80 MG Tablet GT (21:25)
[2019-09-29] MEDS: Temazepam 15 MG Capsule PO (21:26)
[2019-09-30] VITALS (11 sets, daily range): BP systolic 95–149; BP diastolic 66–99; PULSE 72–116; RESP 16–18; TEMP 36.5–37; O2SAT 90–96
--- NOTE | 2019-09-30 01:47 | NURSING ---
report called to receiving RN Ruby in PCU. Jose Enrique VOSS
--- NOTE | 2019-09-30 02:11 | NURSING ---
Patient transferred from ICU at this time. RELIGION PROFESSOR, Ursula Ramirez, who brought patient to room , stated that patient wallet was missing. Ursula was instructed by PCU charge nurse, Dilma Franco , to fill out a patient lost belonging report. Dilma checked with security and ED and they do not have wallet. This nurse looked through patient belonging bags and did not find wallet. Patient home medications locked in med cabinet in med. room.
[2019-09-30 06:50] LABS: Absolute Lymphocyte Count 0.81 X10^3/uL (0.83-4.51); Absolute Neutrophil Count 6.5 X10^3/uL (2.0-7.7); Hematocrit 41.4 % (40-54); Hemoglobin 13.8 g/dL (13.0-16.5); Lymphocyte # 0.81 X10^3/ul (4.0); Lymphocyte % 10.2 % (19-41); Mean Corp Hgb Conc 33.3 g/dL (32-36); Mean Corpuscular Hgb 28.2 pg (27.0-32.0); Mean Corpuscular Volume 84.7 fL (80-94); Mean Platelet Vol. 9.9 fl (6.2-12.0); Monocyte% 6.3 % (0-10); NRBC Flagged by Analyzer 0 % (0-5); Neutrophil # 6.54 X10^3/uL (2.7-7.7); Neutrophil % 82.5 % (47-70); POSITIVE MORPHOLOGY YES; Platelet Count 144 K/mm3 (150-450); RBC Distribution Width CV 14.8 % (11.6-14.6); RBC Distribution Width SD 45.2 fl (35.1-43.9); Red Blood Count 4.89 M/mm3 (4.6-6.2); White Blood Count 7.9 K/mm3 (4.4-11.0)
[2019-09-30 06:51] LABS: Differential Indicated SCAN CRITERIA MET
[2019-09-30 07:15] LABS: ALB/GLOB Ratio 0.9 RATIO (0.9-2.4); AST(SGOT) 66 U/L (15-37); Alanine Aminotransfer ALT/SGPT 102 U/L (16-61); Albumin, Serum 3.1 g/dL (3.2-5.0); Alkaline Phosphatase 89 U/L (45-117); Anion Gap 7 (5-15); BUN 19 mg/dL (7-18); Calcium,Total 8.9 mg/dL (8.5-10.1); Chloride 104 mmol/L (98-107); Creatinine, Serum 0.63 mg/dL (0.70-1.30); EST Glomerular Filtration Rate 135 mL/min (>60); Est Glom Filt Rate - Afr Amer 163 mL/min (>60); Estimated Creatinine Clearance 117.89 ml/min; Globulin 3.4 g/dL (2.2-4.2); Glucose 143 mg/dL (74-106); Potassium 3.9 mmol/L (3.5-5.1); Protein, Total 6.5 g/dL (6.4-8.2); Sodium Level 140 mmol/L (136-145)
[2019-09-30] MEDS: Ipratropium/Albuterol Sulfate 3 ML AMPUL.NEB INHALATION (07:27)
[2019-09-30 07:39] LABS: Differential Comment SCANNED
--- NOTE | 2019-09-30 08:37 | PN_ITS ---
Patient Problems: Active and Suspected Problems Septic shock (Acute) Acute respiratory failure with hypoxia (Acute) Suspected 2019 novel coronavirus infection (Acute) Cardiac enzymes elevated (Acute) Transaminitis (Acute) Hyperglycemia (Acute) Subjective: The patient was seen and examined at the bedside this morning. Events from the last 24 hours have been reviewed. The patient is currently afebrile, hemodynamically stable and maintaining appropriate oxygen saturations on 2 L/min via nasal cannula. The patient has done well from a respiratory perspective following transfer out of the intensive care unit yesterday. Objective: The patient's most recent lab work, culture data and imaging studies have all been personally reviewed. Surface echocardiogram revealed normal LV size with an ejection fraction of 25 to 30%. Stage II diastolic dysfunction was noted along with hypokinesis of the inferior wall, lateral wall and basal septum. Pulmonary artery systolic pressure was estimated to be 35 mmHg. CTA chest revealed no evidence for PE. There was evidence of bilateral interstitial thickening, emphysematous changes, and airspace disease/consolidation in the lower lobes, primarily on the right side. Strep and urine Legionella antigens were negative. Respiratory viral panel was negative. Sputum and blood cultures have shown no growth to date. COVID testing was negative. - Physical Exam Vitals/I&O's: Vital Signs Temp Pulse Resp BP Pulse Ox 97.8 F 79 18 124/75 H 91 09/30/19 04:00 09/30/19 07:28 09/30/19 07:27 09/30/19 04:00 09/30/19 07:27 Oxygen Flow Rate (L/min) 2 Oxygen Delivery Method Nasal Cannula Weight: 157 lb 3.033 oz Body Mass Index (BMI) 23.6 Intake and Output for Last 24 Hours 09/28/19 09/29/19 09/30/19 23:59 23:59 23:59 Intake Total 2930.18 / 2950.78 2189.75 / 2189.75 150 / 150 Output Total 1675 / 1675 2725 / 2725 325 / 325 Balance 1255.18 / 1275.78 -535.25 / -535.25 -175 / -175 General: Alert, Cooperative, No apparent distress HEENT: Atraumatic, Normocephalic Oral: No Gingival or Mucosal Lesions/ Ulcerations Neck: Supple, No Nodes, Trachea Midline Lungs: No rhonchi, No wheeze, No rales, Diminished Cardiovascular: Regular rate, Regular Rhythm, Normal S1, Normal S2 Abdomen: Bowel Sounds Present, Soft, Non Tender Extremities: No clubbing, No cyanosis, No edema Skin: No breakdown Musculoskeletal: No Muscle Wasting Lymphatic: No Cervical, Supraclavicular, or Inguinal Adenopathy Neurological: Cranial nerves II-XII grossly intact, Neuro grossly intact Psych/Mental Status: Normal Affect, Appropriate Labs (Last 48 Hours) 09/26/19 09/28/19 09/28/19 06:58 08:17 16:16 WBC RBC Hgb Hct MCV MCH MCHC RDW Std Deviation RDW Coeff of [place] Plt Count MPV Immature Gran % (Auto) Neut % (Auto) Lymph % (Auto) [place] % (Auto) Eos % (Auto) Baso % (Auto) Absolute Neuts (auto) Absolute Lymphs (auto) Nucleated RBC % Differential Comment Reactive Lymphocytes Sodium Potassium Chloride Carbon Dioxide Anion Gap BUN Creatinine Estim Creat Clear Calc Est GFR (MDRD) Af Amer Est GFR (MDRD) Non-Af BUN/Creatinine Ratio Glucose Calcium Total Bilirubin AST ALT Alkaline Phosphatase Total Protein Albumin Globulin Albumin/Globulin Ratio COVID-19 ([facility]AYNE) SEE COMMENT POC Glucose 182 H 151 H 09/28/19 09/29/19 09/29/19 21:16 04:21 04:25 WBC 7.0 RBC 4.40 L Hgb 12.5 L Hct 39.2 L MCV 89.1 MCH 28.4 MCHC 31.9 L RDW Std Deviation 48.9 H RDW Coeff of [place] 15.1 H Plt Count 126 L MPV 10.2 Immature Gran % (Auto) 0.700 Neut % (Auto) 81.2 H Lymph % (Auto) 8.7 L [place] % (Auto) 9.4 Eos % (Auto) 0.0 Baso % (Auto) 0.0 Absolute Neuts (auto) 5.7 Absolute Lymphs (auto) 0.61 L Nucleated RBC % 0 Differential Comment SCANNED Reactive Lymphocytes RARE Sodium Potassium Chloride Carbon Dioxide Anion Gap BUN Creatinine Estim Creat Clear Calc Est GFR (MDRD) Af Amer Est GFR (MDRD) Non-Af BUN/Creatinine Ratio Glucose Calcium Total Bilirubin AST ALT Alkaline Phosphatase Total Protein Albumin Globulin Albumin/Globulin Ratio COVID-19 ([facility]) POC Glucose 185 H 166 H 09/29/19 09/30/1909/29/20 04:25 06:17 06:17 WBC 7.9 RBC 4.89 Hgb 13.8 Hct 41.4 MCV 84.7 MCH 28.2 MCHC 33.3 RDW Std Deviation 45.2 H RDW Coeff of [place] 14.8 H Plt Count 144 L MPV 9.9 Immature Gran % (Auto) 1.000 H Neut % (Auto) 82.5 H Lymph % (Auto) 10.2 L [place] % (Auto) 6.3 Eos % (Auto) 0.0 Baso % (Auto) 0.0 Absolute Neuts (auto) 6.5 Absolute Lymphs (auto) 0.81 L Nucleated RBC % 0 Differential Comment SCANNED Reactive Lymphocytes Sodium 141 140 Potassium 4.6 3.9 Chloride 104 104 Carbon Dioxide 34.0 H 29.0 Anion Gap 3 L 7 BUN 30 H 19 H Creatinine 0.60 L 0.63 L Estim Creat Clear Calc 122.74 117.89 Est GFR (MDRD) Af Amer 172 163 Est GFR (MDRD) Non-Af 142 135 BUN/Creatinine Ratio 49.6 H 30.0 H Glucose 157 H 143 H Calcium 8.0 L 8.9 Total Bilirubin 0.50 0.80 AST 26 66 H ALT 49 102 H Alkaline Phosphatase 72 89 Total Protein 6.0 L 6.5 Albumin 2.8 L 3.1 L Globulin 3.2 3.4 Albumin/Globulin Ratio 0.9 0.9 COVID-19 ([facility]) POC Glucose Microbiology 09/26/19 01:30 Blood Culture (Wb) - Right Forearm Blood Culture - Preliminary No growth in 48 hours. 09/26/19 01:30 Blood Culture (Wb) #2 - Right Hand Blood Culture - Preliminary No growth in 48 hours. 09/26/19 06:55 Sputum, Induced/Lukens Gram Stain - Final 09/26/19 06:55 Sputum, Induced/Lukens Respiratory Culture - Final Clinical Impression(s) from Imaging Studies Chest X-Ray 09/26/19 01:33 IMPRESSION: Lines in good position. Hyperinflation, chronic interstitial lung disease, superimposed inflammatory/infectious etiology off mid and lower lung parenchyma right greater than left lung. Electronically Signed: Amparo Bah MD at 3:17 EDT , Service support , Chest X-Ray 09/26/19 03:36 IMPRESSION: Lines in good position. Right greater than left airspace disease superimposed on chronic interstitial lung disease and component of COPD. Electronically Signed: Amparo Bah MD at 4:46 EDT , Service support , Chest CTA 09/26/19 12:03 IMPRESSION: Bibasilar consolidation more prominent in the right lower lobe with minimal pleural effusions. Emphysematous changes with infiltrates in the posterior aspect of the right upper lobe as well as in the medial aspect of the left upper lobe. No evidence of pulmonary embolism. Electronically Signed: Justin Love, at 14:24 EDT , Service support , Chest X-Ray 09/27/19 06:38 IMPRESSION: Improved atypical pneumonia with some residual right lower lobe pneumonia. Electronically Signed: Rodri Allred MD at 7:26 EDT Tel , Service support , Current Medications Acetaminophen (Tylenol) 650 mg RECTAL Q4H PRN PRN PRN Reason: Pain Score 1-10/Temp > 100.7 F Acetaminophen (Tylenol) 650 mg PO Q6H PRN PRN PRN Reason: Pain Score 1-10/Temp > 100.7 F Albuterol Sulfate (Ventolin Aerosols) 2.5 mg INHALATION Q2H PRN PRN PRN Reason: Dyspnea, wheezing Albuterol/Ipratropium (Duoneb) 3 ml INHALATION Q6H.RT [facility] Last Admin: 09/30/19 07:27 Dose: 3 ml Documented by: Aspirin (Aspirin, Baby) 81 mg GT DAILY@1000 [facility] Last Admin: 09/29/19 09:17 Dose: 81 mg Documented by: Atorvastatin Calcium (Lipitor) 80 mg GT QHS [facility] Last Admin: 09/29/19 21:25 Dose: 80 mg Documented by: Buspirone HCl (Buspar) 10 mg PO BID [facility] Last Admin: 09/29/19 21:25 Dose: 10 mg Documented by: Chlorhexidine Gluconate () 1 each TOPICAL DAILY [facility] Last Admin: 09/29/19 10:34 Dose: 1 each Documented by: Clopidogrel Bisulfate (Plavix) 75 mg GT DAILY [facility] Last Admin: 09/29/19 09:17 Dose: 75 mg Documented by: Dextrose (D50w Syringe) 0 gm IV X1 PRN; Protocol PRN Reason: Hypoglycemia Enoxaparin Sodium (Lovenox) 70 mg SC Q12@1000,2000 [facility] Last Admin: 09/29/19 21:27 Dose: 70 mg Documented by: Glucagon () 1 mg IM .X1 PRN PRN Reason: Hypoglycemia Sodium Chloride () 250 mls @ 15 mls/hr IV .[id number] PRN PRN Reason: Saline Flush Last Infusion: 09/30/19 06:26 Dose: 15 mls/hr Documented by: Sodium Chloride () 250 mls @ 15 mls/hr IV .[id number] PRN PRN Reason: Additional IVPB Infusion Piperacillin Sod/Tazobactam (Sod 3.375 gm/ Sodium Chloride) 50 mls @ 12.5 mls/hr IV Q8@0200,1000,1800 [facility] Last Infusion: 09/30/19 06:26 Dose: Infused Documented by: Magnesium Hydroxide (Milk Of Magnesia) 30 ml PO DAILY PRN PRN PRN Reason: Constipation Methylprednisolone (Solu-Medrol) 40 mg IV Q8@0200,1000,1800 [facility] Last Admin: 09/30/19 01:29 Dose: 40 mg Documented by: Nitroglycerin (Nitrostat) 0.4 mg SUBLINGUAL Q5M PRN PRN Reason: CARDIAC/CHEST PAIN Psyllium Hydrophilic Mucilloid (Metamucil) 1 packet PO DAILY PRN PRN PRN Reason: Constipation Senna/Docusate Sodium (Senokot-S, Helene-Colace) 2 tablet GT BID PRN PRN PRN Reason: Constipation Sodium Chloride () 10 - 40 ml IV UD PRN PRN Reason: SALINE FLUSH Last Admin: 09/29/19 17:02 Dose: 10 ml Documented by: Temazepam (Restoril) 15 mg PO QHS PRN PRN PRN Reason: INSOMNIA Last Admin: 09/29/19 21:26 Dose: 15 mg Documented by: Medical Necessity - Tobacco Use Smoking Status: Former smoker Tobacco Use: Non-smoker Assessment/Plan All Active Problems Septic shock (Acute) Acute respiratory failure with hypoxia (Acute) Suspected 2019 novel coronavirus infection (Acute) Cardiac enzymes elevated (Acute) Transaminitis (Acute) Hyperglycemia (Acute) RECOMMENDATIONS: 1. Plan to complete 7-day treatment course of antibiotics. 2. Wean supplemental oxygen to maintain saturations at or above 90%. 3. Continue scheduled bronchodilators. Okay to transition to prednisone, with plans for a taper at discharge. 4. Perform walking oximetry study prior to consideration for discharge home. 5. Encourage incentive spirometer use and mobilize patient as tolerated. IMPRESSIONS: 1. Acute combined respiratory failure The patient presented to the hospital with impending respiratory failure and was emergently intubated in the emergency department. He does have an apparent history of COPD of unknown severity. Chest x-ray did reveal findings of bilateral airspace disease with what is likely some chronic interstitial changes. A follow-up CT chest did reveal evidence of multilobar pneumonia. The patient has been maintained on empiric antimicrobials, bronchodilators and IV steroids. Infectious work-up has been unrevealing, including a negative coronavirus test. The patient improved from a respiratory perspective and was able to be extubated on the morning of September 28. At this time, his supplemental oxygen will be weaned to maintain saturations at or above 90%. Encourage incentive spirometer use and mobilize patient as tolerated. 2. Severe sepsis with concern for healthcare associated pneumonia and possible COVID 19 Infection The patients documented hypotension was likely secondary to sedating medication administration. The patient is currently hemodynamically stable. In addition, the patient has underlying cardiac disease with a depressed ejection fraction. As noted above, broad-spectrum antimicrobials will be continued. Infectious diseases is currently following to assist with management. 3. Non-ST segment elevation ND/history of coronary artery disease status post past PCI/combined systolic and diastolic heart failure Unclear if the patient's presenting cardiac manifestation represents a primary cardiac event versus a type II event. The case was discussed with cardiology, who does not feel that the patient requires any intervention at this time. 4. History of tobacco dependency, currently in remission/COPD/hepatitis B/CLL Complicates care, management, recovery and prognosis. Continue home medications as indicated. This note was generated with milabentation software. It may contain incorrect words, spelling, and punctuation that were not noted in checking the note before signing. Inpatient E&M: [id number] Subs Hosp L2
[2019-09-30] MEDS: Aspirin 81 MG TAB.CHEW GT (09:22)
[2019-09-30] MEDS: Enoxaparin 80 MG/0.8 ML Syringe 70 MG SC (09:22)
[2019-09-30] MEDS: Clopidogrel Bisulfate 75 MG Tablet GT (09:23)
[2019-09-30] MEDS: 0.9% Saline Lock 10 ML Syringe IV (09:23)
[2019-09-30] MEDS: busPIRone 5 MG Tablet 10 MG PO (09:23)
--- NOTE | 2019-09-30 09:44 | DCINST_ITS ---
- Discharge Diagnoses Current Active Problems: Current Active and Chronic Problems Septic shock (Acute) Acute respiratory failure with hypoxia (Acute) Suspected 2019 novel coronavirus infection (Acute) Cardiac enzymes elevated (Acute) Transaminitis (Acute) Hyperglycemia (Acute) CAD (coronary artery disease) (Chronic) HTN (hypertension) (Chronic) HLD (hyperlipidemia) (Chronic) CLL (chronic lymphocytic leukemia) (Chronic) Former tobacco use (Chronic) History of alcohol abuse (Chronic) You will use the following diet at home:: Cardiac Discharge Activity: May Not Drive Additional Activity Instructions:: Outpatient follow-up with PT, physical therapy. Diagnosis generalized weakness secondary to advanced COPD and NHL Call your doctor if you observe: Fever of 101 or Higher, Inability to urinate, Inability to have a bowel movement, Shortness of breath, Dizziness, Fainting spells, Swelling in the ankles, Chest pain, Prolonged hiccoughing, Increased palpitations (irregular heartbeat) Additional Instructions: Follow-up with oncologist, Dr Valadez for NHL in 2 week. Allergies/Adverse Reactions: Allergies Iodine and Iodide Containing Produc Allergy (Verified 09/26/19 01:26) Angioedema Medications to take at Discharge Aspirin [Aspirin, Baby] 81 mg PO DAILY@0800 09/26/19 Atorvastatin Calcium 80 mg PO QHS 09/26/19 Clopidogrel Bisulfate [Plavix] 75 mg PO DAILY 09/26/19 Metoprolol Succinate 25 mg PO DAILY 09/26/19 Entecavir 0.5 mg PO DAILY #0 09/30/19 Ipratropium/Albuterol Sulfate [Duoneb] 3 ml INHALATION Q6H.RT #30 ampul.neb 09/30/19 Prednisone 10 mg PO DAILY #30 tab 09/30/19 busPIRone [Buspar] 10 mg PO BID PRN PRN #30 tab 09/30/19 levoFLOXacin tablet [Levaquin tablet] 500 mg PO DAILY #5 tab 09/30/19 The following prescriptions were given: busPIRone [Buspar] 10 mg PO BID PRN PRN #30 tab PRN Reason: anxiety Transmission Status: Pending to [facility] Ipratropium/Albuterol Sulfate [Duoneb] 3 ml INHALATION Q6H.RT #30 ampul.neb Transmission Status: Pending to [facility] levoFLOXacin tablet [Levaquin tablet] 500 mg PO DAILY #5 tab Transmission Status: Pending to [facility] Prednisone 10 mg PO DAILY #30 tab Transmission Status: Pending to [facility] Care Physician[facility] [Primary Care Provider] - Please follow up with your Primary Care Physician in: in 2 weeks Test Results: Test results from this visit will be discussed in further detail at your follow- up appointment, if applicable. Please Follow Up With: Sanchez Ramirez, DO When: with Hoa Urbina NP in 2 weeks
--- NOTE | 2019-09-30 09:45 | DS.PCM_ITS ---
Discharge Date and Diagnosis - Problem List Patient Problems: Active and Suspected Problems Septic shock (Acute) Acute respiratory failure with hypoxia (Acute) Suspected 2019 novel coronavirus infection (Acute) Cardiac enzymes elevated (Acute) Transaminitis (Acute) Hyperglycemia (Acute) Date of Admission: 09/26/19 Date of Discharge: 09/30/19 - Primary Discharge Diagnosis Active and Suspected Problems Septic shock (Acute) Acute respiratory failure with hypoxia (Acute) Suspected 2019 novel coronavirus infection (Acute) Cardiac enzymes elevated (Acute) Transaminitis (Acute) Hyperglycemia (Acute) - Secondary Discharge Diagnosis Chronic Problems CAD (coronary artery disease) (Chronic) HTN (hypertension) (Chronic) HLD (hyperlipidemia) (Chronic) CLL (chronic lymphocytic leukemia) (Chronic) Former tobacco use (Chronic) History of alcohol abuse (Chronic) Hospital Course and Treatment Summary of Care Provided: The patient is a 64 year old M with history of coronary artery disease status post stents and chronic combined heart failure, COPD admitted in the ICU with cough, shortness of breath, dyspnea at rest with generalized weakness for 1 week. Patient was tachycardic, tachypneic, pulse ox 95% on nonrebreather and required intubation. Patient blood pressure dropped secondary to intubation and sedation but recovered. Patient had leukocytosis 17,000 with left shift lactic acid 3.7, AST/ALT 106/1 8 6, troponin 0 0.205. Patient had chest x-ray and then CTA scan which did not show evidence of PE but bilateral interstitial thickening, emphysematous changes and airspace/consolidation in both lower lobes but right more than left. Patient had pneumonia work-up which were negative including strep and Legionella antigen test, respiratory panel, sputum and blood cultures and covid-19 testing. Patient is started on vancomycin and Zosyn and gradually antibiotic was tapered down to Zosyn. Patient is on 50-day of antibiotic and a prescription given for Levaquin for 5 more days to complete 10 days. Diagnosis: 1. Acute hypoxic and hypercarbic combined respiratory failure secondary to COPD exacerbation, secondary to pneumonia as mentioned below 2. Severe sepsis secondary to bilateral healthcare acid pneumonia, right more than left. 3. Non-STEMI/coronary artery disease status post stent. Continue aspirin, Plavix, statin, metoprolol. If blood pressure allows will need JULIO/ARB. This needs to be followed prospectively as an outpatient to consider JULIO/ARB 4. Acute on chronic systolic and diastolic heart failure: Echo was done shows EF 25 to 30% with stage II diastolic dysfunction; hypokinesis of inferior wall, lateral wall and basal septum. PASP 35 mmHg. 5. CLL: Patient is on entecavir at home and was supposed to prevent hepatitis B exacerbation/recurrence while on chemotherapy. Currently patient is not taking chemotherapy. Was advised to hold for 5 more days and then resume it. Follow- up oncologist Dr. Valadez. 6. Other comorbid include hypertension and dyslipidemia: Patient Discharge medication reconciliation done. Discharge follow-up instructions completed. Discharge process discussed with the patient and all questions were answered to patient's satisfaction. Scripts sent to the patient's pharmacy. Walking pulse oximetry was done before discharge. Pulse ox 90% at rest on room air, 90% on room air on ambulation. Patient does not require home oxygen. Total time spent, exact 35 minutes on discharge meds reconciliation, examination, coordination of care with nurses and ancillary staff, review of imaging and blood test and discussion with the patient on follow-up instructions Patient Problems: Active and Suspected Problems Septic shock (Acute) Acute respiratory failure with hypoxia (Acute) Suspected 2019 novel coronavirus infection (Acute) Cardiac enzymes elevated (Acute) Transaminitis (Acute) Hyperglycemia (Acute) Subjective: Patient hypoxia resolved. No fever for more than 48 hours. No subjective shortness of breath. Walking pulse oximetry was done. - Physical Exam Vitals/I&O's: Vital Signs Temp Pulse Resp BP Pulse Ox 98.1 F 116 H 18 134/75 H 90 09/30/19 09:16 09/30/19 09:16 09/30/19 09:16 09/30/19 09:16 09/30/19 09:36 Oxygen Flow Rate (L/min) 2 Oxygen Delivery Method Nasal Cannula Weight: 157 lb 3.033 oz Body Mass Index (BMI) 23.6 Intake and Output for Last 24 Hours 09/28/19 09/29/19 09/30/19 23:59 23:59 23:59 Intake Total 2930.18 / 2950.78 2189.75 / 2189.75 150 / 150 Output Total 1675 / 1675 2725 / 2725 325 / 325 Balance 1255.18 / 1275.78 -535.25 / -535.25 -175 / -175 General: Alert, Oriented x3, Cooperative HEENT: Atraumatic, PERRLA, EOMI, Normocephalic Neck: Supple, No JVD, Negative Carotid Bruits Lungs: Diminished - Air entry diminished in lower lobes., Rhonchi - Expiratory rhonchi and wheezing present, Wheezes Cardiovascular: Regular rate, Regular Rhythm, Normal S1, Normal S2, No murmurs Abdomen: Bowel Sounds Present, Soft, Non Tender, Non-Distended Extremities: No edema, Capillary Refill Less than 3 Seconds Skin: No rashes, No breakdown Musculoskeletal: No Tenderness to Palpation of Joints or Extremities, Arthritic Changes Neurological: Cranial nerves II-XII grossly intact, Deep Tendon Reflexes 2+/4 and Symmetrical, Neuro grossly intact Psych/Mental Status: Normal Affect, Appropriate Microbiology Past 72 Hours 09/26/19 01:30 Blood Culture (Wb) - Right Forearm Blood Culture - Preliminary No growth in 48 hours. 09/26/19 01:30 Blood Culture (Wb) #2 - Right Hand Blood Culture - Preliminary No growth in 48 hours. 09/26/19 06:55 Sputum, Induced/Lukens Gram Stain - Final 09/26/19 06:55 Sputum, Induced/Lukens Respiratory Culture - Final Laboratory Results 09/30/19 06:17: WBC 7.9, RBC 4.89, Hgb 13.8, Hct 41.4, MCV 84.7, MCH 28.2, MCHC 33.3, RDW Std Deviation 45.2 H, RDW Coeff of [place] 14.8 H, Plt Count 144 L, MPV 9.9, Immature Gran % (Auto) 1.000 H, Neut % (Auto) 82.5 H, Lymph % (Auto) 10.2 L , Cecil % (Auto) 6.3, Eos % (Auto) 0.0, Baso % (Auto) 0.0, Absolute Neuts (auto) 6.5, Absolute Lymphs (auto) 0.81 L, Nucleated RBC % 0, Differential Comment SCANNED 09/30/19 06:17: Sodium 140, Potassium 3.9, Chloride 104, Carbon Dioxide 29.0, Anion Gap 7, BUN 19 H, Creatinine 0.63 L, Estim Creat Clear Calc 117.89, Est GFR (MDRD) Af Amer 163, Est GFR (MDRD) Non-Af 135, BUN/Creatinine Ratio 30.0 H, Glucose 143 H, Calcium 8.9, Total Bilirubin 0.80, AST 66 H, ALT 102 H, Alkaline Phosphatase 89, Total Protein 6.5, Albumin 3.1 L, Globulin 3.4, Albumin/Globulin Ratio 0.9 Current Medications Acetaminophen (Tylenol) 650 mg RECTAL Q4H PRN PRN PRN Reason: Pain Score 1-10/Temp > 100.7 F Acetaminophen (Tylenol) 650 mg PO Q6H PRN PRN PRN Reason: Pain Score 1-10/Temp > 100.7 F Albuterol Sulfate (Ventolin Aerosols) 2.5 mg INHALATION Q2H PRN PRN PRN Reason: Dyspnea, wheezing Albuterol/Ipratropium (Duoneb) 3 ml INHALATION Q6H.RT [facility] Last Admin: 09/30/19 07:27 Dose: 3 ml Documented by: Aspirin (Aspirin, Baby) 81 mg GT DAILY@1000 [facility] Last Admin: 09/30/19 09:22 Dose: 81 mg Documented by: Atorvastatin Calcium (Lipitor) 80 mg GT QHS [facility] Last Admin: 09/29/19 21:25 Dose: 80 mg Documented by: Buspirone HCl (Buspar) 10 mg PO BID [facility] Last Admin: 09/30/19 09:23 Dose: 10 mg Documented by: Chlorhexidine Gluconate () 1 each TOPICAL DAILY [facility] Last Admin: 09/29/19 10:34 Dose: 1 each Documented by: Clopidogrel Bisulfate (Plavix) 75 mg GT DAILY [facility] Last Admin: 09/30/19 09:23 Dose: 75 mg Documented by: Dextrose (D50w Syringe) 0 gm IV X1 PRN; Protocol PRN Reason: Hypoglycemia Enoxaparin Sodium (Lovenox) 70 mg SC Q12@1000,2000 [facility] Last Admin: 09/30/19 09:22 Dose: 70 mg Documented by: Glucagon () 1 mg IM .X1 PRN PRN Reason: Hypoglycemia Sodium Chloride () 250 mls @ 15 mls/hr IV .[id number] PRN PRN Reason: Saline Flush Last Infusion: 09/30/19 06:26 Dose: 15 mls/hr Documented by: Sodium Chloride () 250 mls @ 15 mls/hr IV .[id number] PRN PRN Reason: Additional IVPB Infusion Piperacillin Sod/Tazobactam (Sod 3.375 gm/ Sodium Chloride) 50 mls @ 12.5 mls/hr IV Q8@0200,1000,1800 [facility] Last Admin: 09/30/19 09:22 Dose: 12.5 mls/hr Documented by: Magnesium Hydroxide (Milk Of Magnesia) 30 ml PO DAILY PRN PRN PRN Reason: Constipation Methylprednisolone (Solu-Medrol) 40 mg IV Q8@0200,1000,1800 [facility] Last Admin: 09/30/19 09:22 Dose: 40 mg Documented by: Nitroglycerin (Nitrostat) 0.4 mg SUBLINGUAL Q5M PRN PRN Reason: CARDIAC/CHEST PAIN Psyllium Hydrophilic Mucilloid (Metamucil) 1 packet PO DAILY PRN PRN PRN Reason: Constipation Senna/Docusate Sodium (Senokot-S, Helene-Colace) 2 tablet GT BID PRN PRN PRN Reason: Constipation Sodium Chloride () 10 - 40 ml IV UD PRN PRN Reason: SALINE FLUSH Last Admin: 09/30/19 09:23 Dose: 10 ml Documented by: Temazepam (Restoril) 15 mg PO QHS PRN PRN PRN Reason: INSOMNIA Last Admin: 09/29/19 21:26 Dose: 15 mg Documented by: Home Medications: Medications to take at Discharge Aspirin [Aspirin, Baby] 81 mg PO DAILY@0800 09/26/19 Atorvastatin Calcium 80 mg PO QHS 09/26/19 Clopidogrel Bisulfate [Plavix] 75 mg PO DAILY 09/26/19 Metoprolol Succinate 25 mg PO DAILY 09/26/19 Entecavir 0.5 mg PO DAILY #0 09/30/19 Ipratropium/Albuterol Sulfate [Duoneb] 3 ml INHALATION Q6H.RT #30 ampul.neb 09/30/19 Prednisone 10 mg PO DAILY #30 tab 09/30/19 busPIRone [Buspar] 10 mg PO BID PRN PRN #30 tab 09/30/19 levoFLOXacin tablet [Levaquin tablet] 500 mg PO DAILY #5 tab 09/30/19 Following Prescrptions Were Given to Patient: busPIRone [Buspar] 10 mg PO BID PRN PRN #30 tab PRN Reason: anxiety Transmission Status: Received by [facility] Ipratropium/Albuterol Sulfate [Duoneb] 3 ml INHALATION Q6H.RT #30 ampul.neb Transmission Status: Received by [facility] levoFLOXacin tablet [Levaquin tablet] 500 mg PO DAILY #5 tab Transmission Status: Received by [facility] Prednisone 10 mg PO DAILY #30 tab Transmission Status: Received by [facility] Primary Care Physician: [facility] [Primary Care Provider] - Medical Necessity - Tobacco Use Smoking Status: Former smoker Tobacco Use: Non-smoker Meaningful Use Info Meaningful Use Diagnoses (Choose all that apply): None applicable Inpatient E&M: 05853 Disch Hosp
--- NOTE | 2019-10-01 11:30 | CASEMGMT ---
Addendum entered by Josh Avendaño 10/01/19 14:51: COVID-19 results and DC summary faxed to [facility]. Call to update, fax was received. Heidi LYNN RN ACM Original Note: SHANIKA SINGH Note. Call received from [facility]. Rep would like update re: COVID-19 results, and requested fax with DC Summary. Updated that pt has dc'd home.
== END 2019-09-30 14:43 | disposition home or self-care (01) | DRG 871 ==
LOC: ED 02:24 → ICU 04:34 → PCU 09-30 02:55 → ICU 10-02 12:12
PROVIDERS: Family Medicine; Internal Medicine Critical Care Medicine; Admitting Provider Family Medicine; Emergency Provider Emergency Medicine; Visit Provider Internal Medicine
DX: A41.9 Sepsis, unspecified organism (principal); R65.21 Severe sepsis with septic shock; J44.0 Chronic obstructive pulmonary disease with (acute) lower respiratory infection; J18.9 Pneumonia, unspecified organism; J96.01 Acute respiratory failure with hypoxia; J96.02 Acute respiratory failure with hypercapnia; I21.4 Non-ST elevation (NSTEMI) myocardial infarction; I50.43 Acute on chronic combined systolic (congestive) and diastolic (congestive) heart failure; J44.1 Chronic obstructive pulmonary disease with (acute) exacerbation; C91.10 Chronic lymphocytic leukemia of B-cell type not having achieved remission; I11.0 Hypertensive heart disease with heart failure; I25.10 Atherosclerotic heart disease of native coronary artery without angina pectoris; E78.5 Hyperlipidemia, unspecified; R73.9 Hyperglycemia, unspecified; F41.9 Anxiety disorder, unspecified; Y95 Nosocomial condition; Z79.02 Long term (current) use of antithrombotics/antiplatelets; Z79.82 Long term (current) use of aspirin; Z79.899 Other long term (current) drug therapy; Z87.891 Personal history of nicotine dependence; Z95.5 Presence of coronary angioplasty implant and graft
CPT/HCPCS: 31500; 31720; 36415; 36600; 51702; 71045; 71275; 80048; 80053; 80076; 81001; 82728; 82803; 82962; 83036; 83605; 83615; 83735; 84484; 85025; 85610; 85730; 86140; 87040; 87070; 87205; 87449; 87633; 87635; 87641; 87804; 93005; 93306; 94002; 94003; 94640; 94660; 97110; 97162; 97166; 97530; 97802; 99251; 99285; J7030; J7040; J7050; Q9967; A4216; C1751; G0463; J0330; J0696; U0004

== ENCOUNTER 2020-01-05 11:12 | Emergency (ER) | payer MEDICARE, MEDICAID, OTHER, SELFPAY ==
[2019-09-26 02:50] VITALS: BMI 23.6
[2020-01-05 11:13] VITALS: BP 131/91; PULSE 97; RESP 16; TEMP 37; O2SAT 95; BMI 25.0
--- NOTE | 2020-01-05 11:24 | DCINST.ED_ITS ---
ED Disposition - Plan for ED Patient: Instructions: Med Refill Prescriptions: busPIRone [Buspar] 10 mg PO BID #60 tab Transmission Status: Pending to [facility] Ipratropium/Albuterol Sulfate [Duoneb] 3 ml INHALATION Q4H.RT #60 ampul.neb Transmission Status: Pending to [facility] Clopidogrel Bisulfate [Plavix] 75 mg PO DAILY #30 tab Transmission Status: Pending to [facility] Referrals: [facility] [Primary Care Provider] - Hillary Patricia MD [STAFF PHYSICIAN] - As Needed
--- NOTE | 2020-01-05 11:32 | ED.VISSUMM ---
- ER Visit Summary Date of Service: 01/05/20 Chief Complaint: [Requesting medication refills] History of Present Illness: The patient is a 64 M [presents to the emergency department requesting refills on his medications because he cannot get into see his new primary care physician to the middle of January. Patient just moved to the area from [place]. Patient normally goes to the [place]. He is requesting refills on his Plavix, BuSpar, and DuoNeb aerosols. Patient has history of COPD, coronary artery disease, hypertension, elevated cholesterol, history of CLL, and history of alcohol abuse. Patient denies any physical complaints otherwise.] Physical Examination: [HEENT-PERRLA, EOMI. Cranial nerves II through XII grossly intact. TMs clear. Mucous membranes moist. No adenopathy. Cardiovascular-regular rate and rhythm without murmur or ectopy Lungs-clear to auscultation, chest wall stable without crepitus or subcu emphysema Abdomen-normoactive bowel sounds, soft, nontender, no rebound or rigidity, no peritoneal signs. Extremities-intact ?4, normal range of motion, normal pulses, atraumatic] Test Results: [None indicated] Emergency Department Course and Treatment: [] Treatment Plan: [Patient will be given prescriptions for his BuSpar, Plavix, and DuoNeb aerosols.] Disposition: [Discharged home in stable condition.] Impression: [Medication refills] This note was generated with [employer] dictation software. It may contain incorrect words, spelling, and punctuation that were not noted in review of the chart prior to signing ED Disposition - Plan for ED Patient: Instructions: Med Refill Prescriptions: busPIRone [Buspar] 10 mg PO BID #60 tab Transmission Status: Pending to [facility] Ipratropium/Albuterol Sulfate [Duoneb] 3 ml INHALATION Q4H.RT #60 ampul.neb Transmission Status: Pending to [facility] Clopidogrel Bisulfate [Plavix] 75 mg PO DAILY #30 tab Transmission Status: Pending to [facility] Referrals: Hillary Patricia MD [STAFF PHYSICIAN] - As Needed [facility] [Primary Care Provider] -
== END 2020-01-05 11:49 | disposition home or self-care (01) ==
LOC: ED 11:39
PROVIDERS: Emergency Provider Emergency Medicine
DX: Z76.0 Encounter for issue of repeat prescription (principal); I25.10 Atherosclerotic heart disease of native coronary artery without angina pectoris; J44.9 Chronic obstructive pulmonary disease, unspecified; I10 Essential (primary) hypertension; E78.00 Pure hypercholesterolemia, unspecified; Z79.82 Long term (current) use of aspirin; Z79.02 Long term (current) use of antithrombotics/antiplatelets; Z79.899 Other long term (current) drug therapy; Z85.6 Personal history of leukemia
CPT/HCPCS: 99282

== ENCOUNTER → 2020-02-13 09:54 | Outpatient (CLI) | payer MEDICARE, MEDICAID, SELFPAY ==
[2020-02-13 09:26] VITALS: BMI 25.0
[2020-02-13 12:40] LABS: Absolute Lymphocyte Count 1.86 X10^3/uL (0.83-4.51); Absolute Neutrophil Count 4.6 X10^3/uL (2.0-7.7); Basophil# 0.04 X10^3/uL; Basophil% 0.5 % (0-1); Eosinophil# 0.17 X10^3/uL; Eosinophils% 2.3 % (0-5); Hematocrit 47.1 % (40-54); Hemoglobin 14.4 g/dL (13.0-16.5); Lymphocyte # 1.86 X10^3/ul (4.0); Lymphocyte % 25.1 % (19-41); Mean Corp Hgb Conc 30.6 g/dL (32-36); Mean Corpuscular Hgb 25.9 pg (27.0-32.0); Mean Corpuscular Volume 84.7 fL (80-94); Mean Platelet Vol. 9.8 fl (6.2-12.0); Monocyte# 0.74 X10^3/uL; NRBC Flagged by Analyzer 0 % (0-5); Neutrophil # 4.55 X10^3/uL (2.7-7.7); Neutrophil % 61.6 % (47-70); Platelet Count 283 K/mm3 (150-450); RBC Distribution Width CV 16.5 % (11.6-14.6); RBC Distribution Width SD 50.7 fl (35.1-43.9); Red Blood Count 5.56 M/mm3 (4.6-6.2); White Blood Count 7.4 K/mm3 (4.4-11.0)
[2020-02-13 12:51] LABS: ALB/GLOB Ratio 0.9 RATIO (0.9-2.4); AST(SGOT) 26 U/L (15-37); Alanine Aminotransfer ALT/SGPT 36 U/L (16-61); Albumin, Serum 3.8 g/dL (3.2-5.0); Alkaline Phosphatase 111 U/L (45-117); Anion Gap 6 (5-15); BUN 18 mg/dL (7-18); Calcium,Total 9.3 mg/dL (8.5-10.1); Chloride 103 mmol/L (98-107); Cholesterol 123 mg/dL (200); Creatinine, Serum 0.82 mg/dL (0.70-1.30); EST Glomerular Filtration Rate 100 mL/min (>60); Est Glom Filt Rate - Afr Amer 121 mL/min (>60); Globulin 4.3 g/dL (2.2-4.2); Glucose 76 mg/dL (74-106); High Density Lipoprotein 49 mg/dL; Protein, Total 8.1 g/dL (6.4-8.2); Sodium Level 138 mmol/L (136-145); Triglycerides 106 mg/dL; Very Low Density Lipoprotein 21 mg/dL (5-40)
== END ==
PROVIDERS: PCP Internal Medicine; Referring Provider Internal Medicine; Visit Provider Internal Medicine
DX: C91.10 Chronic lymphocytic leukemia of B-cell type not having achieved remission (principal); I25.10 Atherosclerotic heart disease of native coronary artery without angina pectoris; I10 Essential (primary) hypertension; E78.5 Hyperlipidemia, unspecified
CPT/HCPCS: 36415; 80053; 80061; 85025

== ENCOUNTER → 2020-06-30 08:35 | Outpatient (CLI) | payer MEDICARE, MEDICAID, SELFPAY ==
[2020-05-29 08:45] VITALS: BMI 22.9
== END ==
PROVIDERS: PCP Internal Medicine; Referring Provider Nurse Practitioner Family; Visit Provider Nurse Practitioner Family
DX: I11.0 Hypertensive heart disease with heart failure (principal); I50.42 Chronic combined systolic (congestive) and diastolic (congestive) heart failure; I25.10 Atherosclerotic heart disease of native coronary artery without angina pectoris; E78.5 Hyperlipidemia, unspecified; C91.10 Chronic lymphocytic leukemia of B-cell type not having achieved remission; C85.90 Non-Hodgkin lymphoma, unspecified, unspecified site
CPT/HCPCS: 93308; Q9957; A4216; C8924

== ENCOUNTER → 2020-09-26 12:38 | Outpatient (CLI) | payer MEDICARE, MEDICAID, SELFPAY ==
[2020-09-19 15:36] VITALS: BMI 23.6
--- NOTE | 2020-09-26 12:41 | ECHOD_ITS ---
Version 2 Reason For Study: CHF Procedure This was a 2D Doppler, Color Flow transthoracic echocardiogram. Exam performed in department. Left Ventricle Normal LV size. Left ventricular systolic function is normal. The estimated ejection fraction is 57 %. Stage 1 diastolic dysfunction. No regional wall motion abnormalities noted. Right Ventricle Normal right ventricle. Normal systolic function. Atria Normal left atrium. Normal right atrium. Mitral Valve Normal mitral valve. Tricuspid Valve Normal tricuspid valve. Aortic Valve Normal aortic valve. Trisinus/trileaflet aortic valve. Pulmonic Valve Normal pulmonic valve. Great Vessels Normal aortic root. The pulmonary artery is normal size. Normal inferior vena cava. Pericardium/Pleural No pericardial effusion. MMode/2D Measurements & Calculations LVIDd: 4.3 cm IVSd: 0.70 cm Ao root diam: 3.2 cm LVIDs: 3.2 cm LVPWd: 0.70 cm RVDd: 3.6 cm FS: 26.3 % LAV(MOD-bp): 42.4 ml LVAd ap4: 35.3 cm2 SV(MOD-sp4): 63.1 ml LAV(MOD-bp) Indexed: 23.1 ml/m2 EDV(MOD-sp4): 118.5 ml LAV(MOD-sp2): 44.6 ml EDV(sp4-el): 122.9 ml LAV(MOD-sp4): 35.6 ml LVAs ap4: 21.3 cm2 ESV(MOD-sp4): 55.4 ml ESV(sp4-el): 54.6 ml EF(MOD-sp4): 53.3 % EF(sp4-el): 55.5 % SV(sp4-el): 68.2 ml LA A4 area: 14.1 cm2 LA dimension(2D): 2.9 cm RA A4 area: 13.4 cm2 Time Measurements MV dec time: 0.30 sec Doppler Measurements & Calculations MV E max todd: 72.2 cm/sec Lat Peak E' Todd: 10.2 cm/sec Med Peak E' Todd: 8.6 cm/sec MV A max todd: 109.2 cm/sec E/E' lat: 7.1 E/E' med: 8.4 MV E/A: 0.66 Ao V2 max: 133.7 cm/sec LV V1 max: 98.3 cm/sec PA V2 max: 96.1 cm/sec Ao max P.2 mmHg LV V1 max P.9 mmHg ECHO/Echo Complete Interpretation Summary Normal LV size. Left ventricular systolic function is normal. The estimated ejection fraction is 57 %. Stage 1 diastolic dysfunction. Compared to previous study, the left ventricular systolic function has improved .. Ordering Physician: Ryan Moe Referring Physician: Hillary Patricia Performed By: Chelly Lantigua, ERICK, RVT
== END ==
PROVIDERS: PCP Internal Medicine; Referring Provider Nurse Practitioner Family; Visit Provider Nurse Practitioner Family
DX: I25.5 Ischemic cardiomyopathy (principal); I25.10 Atherosclerotic heart disease of native coronary artery without angina pectoris; I10 Essential (primary) hypertension; E78.5 Hyperlipidemia, unspecified; Z95.5 Presence of coronary angioplasty implant and graft
CPT/HCPCS: 93306

== ENCOUNTER 2020-11-03 09:38 | Emergency (ER) | payer OTHER, MEDICARE, MEDICAID, SELFPAY ==
[2020-10-01 11:35] VITALS: BMI 23.3
[2020-11-03 09:39] VITALS: BP 135/74; PULSE 121; RESP 22; TEMP 37.2; O2SAT 91; BMI 23.1
--- NOTE | 2020-11-03 10:15 | EKG12_ITS ---
Test Reason : SOB Blood Pressure : / mmHG Vent. Rate : 105 BPM Atrial Rate : 105 BPM P-R Int : 134 ms QRS Dur : 078 ms QT Int : 348 ms P-R-T Axes : 084 -49 064 degrees QTc Int : 459 ms Sinus tachycardia with Premature supraventricular complexes Left axis deviation Possible Pulmonary disease pattern Inferior infarct , age undetermined Abnormal ECG Confirmed by PEYTON BUTT, ISRALE ([id number]), society editor SUSY HOLGUIN ([id number]) on 11/04/2020 10:05:27 AM Referred By: JOCY Confirmed By:ISRAEL TODD MD
--- NOTE | 2020-11-03 10:16 | RAD_ITS ---
STUDY: X-RAY CHEST REASON FOR EXAM: Male, 65 years old. Cough TECHNIQUE: Single AP portable view of the chest. COMPARISON: 09/27/2019 FINDINGS: EKG leads overlie the chest Lungs are mildly hyperexpanded without a superimposed acute pulmonary process. There is no demonstrated pleural abnormality. Normal size heart. Normal mediastinum and celeste. Normal visualized pulmonary arteries. Normal visualized aortic arch and descending thoracic aorta. There are diffuse degenerative changes of the visualized thoracic spine. Normal visualized ribs, clavicles, and shoulders. There is no demonstrated abnormality of the visualized soft tissue structures of the upper abdomen. RAD/Chest 1 View (Portable) IMPRESSION: Mildly hyperexpanded lungs without a superimposed acute pulmonary process Electronically Signed: Percy Montano MD at 10:57 EDT , Service support ,
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
[2020-11-03 10:36] VITALS: BP 109/72; PULSE 113; RESP 25; O2SAT 93
[2020-11-03 10:41] LABS: Absolute Lymphocyte Count 1.67 X10^3/uL (0.83-4.51); Absolute Neutrophil Count 8.2 X10^3/uL (2.0-7.7); Basophil# 0.02 X10^3/uL; Basophil% 0.2 % (0-1); Eosinophil# 0.03 X10^3/uL; Eosinophils% 0.3 % (0-5); Hematocrit 46.6 % (40-54); Lymphocyte # 1.67 X10^3/ul (0.83-4.51); Lymphocyte % 15.8 % (19-41); Mean Corp Hgb Conc 32.2 g/dL (32-36); Mean Corpuscular Hgb 28.2 pg (27.0-32.0); Mean Corpuscular Volume 87.8 fL (80-94); Mean Platelet Vol. 9.1 fl (6.2-12.0); Monocyte# 0.66 X10^3/uL; Monocyte% 6.2 % (0-10); NRBC Flagged by Analyzer 0 % (0-5); Neutrophil # 8.17 X10^3/uL (2.7-7.7); Platelet Count 176 K/mm3 (150-450); RBC Distribution Width CV 15.1 % (11.6-14.6); Red Blood Count 5.31 M/mm3 (4.6-6.2); White Blood Count 10.6 K/mm3 (4.4-11.0)
[2020-11-03 11:02] VITALS: O2SAT 96
[2020-11-03 11:02] LABS: ALB/GLOB Ratio 1.1 RATIO (0.9-2.4); AST(SGOT) 23 U/L (15-37); Alanine Aminotransfer ALT/SGPT 31 U/L (16-61); Albumin, Serum 3.9 g/dL (3.2-5.0); Alkaline Phosphatase 98 U/L (45-117); Anion Gap 6 (5-15); BUN 12 mg/dL (7-18); BUN/Creat Ratio 14.1 RATIO (10-20); Chloride 106 mmol/L (98-107); Creatinine, Serum 0.85 mg/dL (0.70-1.30); EST Glomerular Filtration Rate 96 mL/min (>60); Est Glom Filt Rate - Afr Amer 116 mL/min (>60); Estimated Creatinine Clearance 82.71 ml/min; Globulin 3.4 g/dL (2.2-4.2); Glucose 137 mg/dL (74-106); Potassium 3.9 mmol/L (3.5-5.1); Protein, Total 7.3 g/dL (6.4-8.2); Sodium Level 139 mmol/L (136-145)
[2020-11-03 11:29] LABS: Procalcitonin 0.05 ng/mL (0.00-0.09)
[2020-11-03 12:17] VITALS: O2SAT 93
[2020-11-03] MEDS: Doxycycline 100 MG CAPSULE PO (12:49)
[2020-11-03] MEDS: predniSONE 20 MG Tablet 60 MG PO (12:49)
[2020-11-03 12:52] VITALS: BP 104/67; PULSE 88; RESP 20; TEMP 32.7
== END 2020-11-03 12:56 | disposition home or self-care (01) ==
PROVIDERS: Emergency Provider Student in an Organized Health Care Education/Training Program; PCP Internal Medicine
DX: J44.1 Chronic obstructive pulmonary disease with (acute) exacerbation (principal); Z20.822 Contact with and (suspected) exposure to COVID-19; I11.0 Hypertensive heart disease with heart failure; I50.42 Chronic combined systolic (congestive) and diastolic (congestive) heart failure; I25.5 Ischemic cardiomyopathy; I25.10 Atherosclerotic heart disease of native coronary artery without angina pectoris; E78.5 Hyperlipidemia, unspecified; Z79.82 Long term (current) use of aspirin; Z79.52 Long term (current) use of systemic steroids; Z79.899 Other long term (current) drug therapy; I25.2 Old myocardial infarction; Z87.01 Personal history of pneumonia (recurrent); Z87.891 Personal history of nicotine dependence; Z95.5 Presence of coronary angioplasty implant and graft
CPT/HCPCS: 71045; 80053; 84145; 84484; 85025; 87040; 87426; 93005; 99285; A4216

== ENCOUNTER 2021-03-22 04:54 | Emergency (ER) | payer MEDICARE, MEDICAID, SELFPAY ==
[2021-03-22] VITALS (8 sets, daily range): BP systolic 117–141; BP diastolic 65–82; PULSE 105–125; RESP 16–22; TEMP 36.7–37.1; O2SAT 89–95; BMI 23.7
--- NOTE | 2021-03-22 05:13 | EKG12_ITS ---
Test Reason : SOB Blood Pressure : / mmHG Vent. Rate : 117 BPM Atrial Rate : 117 BPM P-R Int : 130 ms QRS Dur : 078 ms QT Int : 342 ms P-R-T Axes : 081 026 057 degrees QTc Int : 477 ms Sinus tachycardia Low voltage QRS Borderline ECG When compared with ECG of 03-NOV-2020 10:20, Premature supraventricular complexes are no longer Present QRS axis Shifted right Confirmed by JASMINE BUTT, YUNIER ([id number]), food expeditor SUSY HOLGUIN ([id number]) on 03/31/2021 10:16:06 AM Referred By: JUDY Confirmed By:YUNIER FERRARO MD
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
[2021-03-22 05:19] LABS: Absolute Lymphocyte Count 12.95 X10^3/uL (0.83-4.51); Absolute Neutrophil Count 6.5 X10^3/uL (2.0-7.7); Basophil# 0.06 X10^3/uL; Basophil% 0.3 % (0-1); Eosinophil# 0.02 X10^3/uL; Eosinophils% 0.1 % (0-5); Hematocrit 44.5 % (40-54); Hemoglobin 14.3 g/dL (13.0-16.5); Lymphocyte # 12.95 X10^3/ul (0.83-4.51); Lymphocyte % 59.8 % (19-41); Mean Corp Hgb Conc 32.1 g/dL (32-36); Mean Corpuscular Volume 87.3 fL (80-94); Mean Platelet Vol. 9.2 fl (6.2-12.0); Monocyte# 2.07 X10^3/uL; Monocyte% 9.6 % (0-10); NRBC Flagged by Analyzer 0 % (0-5); Neutrophil # 6.48 X10^3/uL (2.7-7.7); Neutrophil % 29.9 % (47-70); POSITIVE DIFFERENTIAL YES; POSITIVE MORPHOLOGY YES; Platelet Count 132 K/mm3 (150-450); RBC Distribution Width CV 15.4 % (11.6-14.6); RBC Distribution Width SD 49.2 fl (35.1-43.9); White Blood Count 21.6 K/mm3 (4.4-11.0)
[2021-03-22] MEDS: MethylPREDNISolone 125 MG/2 ML Vial IV (05:20)
[2021-03-22 05:21] LABS: Differential Indicated SCAN CRITERIA MET
[2021-03-22] MEDS: Ipratropium/Albuterol Sulfate 3 ML AMPUL.NEB INHALATION (05:30)
[2021-03-22] MEDS: Albuterol 2.5 MG/3 ML VIAL.NEB. INHALATION ×2 (05:30)
[2021-03-22 05:44] LABS: Anion Gap 7 (5-15); BUN 23 mg/dL (7-18); BUN/Creat Ratio 24.9 RATIO (10-20); Chloride 110 mmol/L (98-107); Creatinine, Serum 0.92 mg/dL (0.70-1.30); EST Glomerular Filtration Rate 87 mL/min (>60); Est Glom Filt Rate - Afr Amer 105 mL/min (>60); Estimated Creatinine Clearance 76.41 ml/min; Glucose 117 mg/dL (74-106); Sodium Level 142 mmol/L (136-145); Troponin-I HS 13 pg/mL (3.0-78.0)
--- NOTE | 2021-03-22 06:00 | RAD_ITS ---
STUDY: X-RAY CHEST REASON FOR EXAM: Male, 65 years old patient with chest pain. TECHNIQUE: Single AP portable view of the chest. COMPARISON: Chest radiograph dated 11/03/2020. FINDINGS: Cardiac monitoring leads are present. Surgical clips are visible in the axilla. There is hyperinflation of the lungs consistent with chronic obstructive lung disease (COPD). There is mild interstitial thickening present at both lung bases and right hilar area. There is no demonstrated pleural abnormality. Normal size heart. Normal mediastinum and celeste. There is prominence of the pulmonary hilar arteries without peripheral pulmonary vascular congestion. There is atherosclerotic calcification of the aortic arch with tortuosity. Normal visualized thoracic spine. Normal visualized ribs, clavicles, and shoulders. There is no demonstrated abnormality of the visualized soft tissue structures of the upper abdomen. RAD/Chest 1 View (Portable) IMPRESSION: No radiographic evidence of acute cardiopulmonary disease. Electronically Signed: Kenyatta Sargent MD at 6:43 EDT , Service support ,
[2021-03-22 06:31] LABS: Differential Comment SCANNED
[2021-03-23 14:59] LABS: Pathologist Review Reviewed
== END 2021-03-22 08:20 | disposition home or self-care (01) ==
PROVIDERS: Emergency Provider Emergency Medicine; PCP Internal Medicine
DX: R06.00 Dyspnea, unspecified (principal); J44.9 Chronic obstructive pulmonary disease, unspecified; Z20.822 Contact with and (suspected) exposure to COVID-19; I11.0 Hypertensive heart disease with heart failure; I50.42 Chronic combined systolic (congestive) and diastolic (congestive) heart failure; I25.5 Ischemic cardiomyopathy; I25.10 Atherosclerotic heart disease of native coronary artery without angina pectoris; E78.5 Hyperlipidemia, unspecified; F17.210 Nicotine dependence, cigarettes, uncomplicated; Z79.52 Long term (current) use of systemic steroids; Z79.51 Long term (current) use of inhaled steroids; Z79.02 Long term (current) use of antithrombotics/antiplatelets; Z79.82 Long term (current) use of aspirin; I25.2 Old myocardial infarction; Z85.6 Personal history of leukemia; Z95.5 Presence of coronary angioplasty implant and graft
CPT/HCPCS: 71045; 80048; 84484; 85025; 87426; 93005; 94640; 96374; 99285; A4216

== ENCOUNTER → 2021-04-08 20:00 | Outpatient (CLI) | payer MEDICARE, MEDICAID, SELFPAY | PROVIDERS: PCP Internal Medicine; Referring Provider Nurse Practitioner Family; Visit Provider Nurse Practitioner Family | DX: G47.10 Hypersomnia, unspecified (principal) | CPT/HCPCS: 95810 ==

== ENCOUNTER → 2021-04-16 10:47 | Outpatient (CLI) | payer MEDICARE, MEDICAID, SELFPAY ==
--- NOTE | 2021-04-16 15:30 | PFTCOMP_ITS ---
COMPLETE PULMONARY FUNCTION TEST INTERPRETATION Brief HPI: Patient is a 65 year old male, currently under the care of Dr. Patricia, who presents to [facility] [place] for complete pulmonary function tests secondary to diagnosis of COPD. Respiratory therapist reports good effort and reproducible results. Interpretation: Forced expiration spirometry shows a severe large airways obstructive ventilatory defect with an FEV1 of 39% predicted. There is a significant bronchodilator response in FVC by strict ATS criteria. Spirograms are of good quality and plateau slowly, indicating slowly emptying areas of the lungs. The respiratory flow volume loop shows decreased expiratory flow rates at all lung volumes consistent with airway obstruction. Lung volumes by body plethysmography show an elevated total lung capacity at 12.75 L, 209% predicted. FRC and RV are elevated out of proportion. Lung vo lume measurements are consistent with hyperinflation and air-trapping. Diffusion capacity by carbon monoxide is decreased at 64% predicted. The airway resistance is elevated. No previous pulmonary function tests were available for review. Impression: Partially reversible severe large airways obstructive ventilatory defect resulting in air trapping with hyperinflation and relatively preserved diffusion capacity, in a pattern consistent with COPD.
== END ==
PROVIDERS: PCP Internal Medicine; Referring Provider Internal Medicine; Visit Provider Internal Medicine
DX: J44.9 Chronic obstructive pulmonary disease, unspecified (principal)
CPT/HCPCS: 94060; 94726; 94729

== ENCOUNTER → 2021-05-18 12:31 | Outpatient (CLI) | payer MEDICARE, MEDICAID, SELFPAY ==
[2021-05-18 12:30] VITALS: PULSE 100; PULSE 104; PULSE 106; PULSE 107; PULSE 97; PULSE 99; O2SAT 87; O2SAT 90; O2SAT 91; O2SAT 92; O2SAT 93
--- NOTE | 2021-05-18 16:56 | WT_ITS ---
PSN 6 Minute Walk Test 6 Minute Walk Test 6 Minute Walk Test: 6 Minute Walk Test PSN:6-Minute Walk Test Start: 05/18/21 13:57 Freq: Status: Active Protocol: [id number] Document 05/18/21 12:30 [facility] (Rec: 05/18/21 14:02 [facility] [id number]) 6 Minute Walk Test Date Performed 05/18/21 Time Performed 12:30 Height 5 ft 8 in Weight: 70.307 kg Weight in Pounds 155.[address]: Sanchez Ramirez Assistive device used: None Pre-test Oxygen Delivery Method Room Air Pulse Ox (%) 93 Pulse Rate (60-100 beats/min) 100 Dyspnea Magan Scale (0-10) 3 Reported Symptoms Increased Work of Breathing 1st minute Oxygen Delivery Method Room Air Pulse Ox (%) 90 Pulse Rate (60-100 beats/min) 97 Dyspnea Magan Scale (0-10) 4 Number of Rests Taken 0 Reported Symptoms Increased Work of Breathing 2nd minute Oxygen Delivery Method Room Air Pulse Ox (%) 90 Pulse Rate (60-100 beats/min) 100 Dyspnea Magan Scale (0-10) 4 Number of Rests Taken 0 Reported Symptoms Increased Work of Breathing 3rd minute Oxygen Delivery Method Room Air Pulse Ox (%) 87 Pulse Rate (60-100 beats/min) 107 H Dyspnea Magan Scale (0-10) 5 Number of Rests Taken 1 Reported Symptoms Increased Work of Breathing 4th minute Oxygen Flow Rate (L/min) (L/min) 2 Oxygen Delivery Method Nasal Cannula Pulse Ox (%) 91 Pulse Rate (60-100 beats/min) 100 Dyspnea Magan Scale (0-10) 4 Number of Rests Taken 0 Reported Symptoms Increased Work of Breathing 5th minute Oxygen Flow Rate (L/min) (L/min) 2 Oxygen Delivery Method Nasal Cannula Pulse Ox (%) 92 Pulse Rate (60-100 beats/min) 104 H Dyspnea Magan Scale (0-10) 4 Number of Rests Taken 0 Reported Symptoms Increased Work of Breathing 6th minute Oxygen Flow Rate (L/min) (L/min) 2 Oxygen Delivery Method Nasal Cannula Pulse Ox (%) 90 Pulse Rate (60-100 beats/min) 106 H Dyspnea Magan Scale (0-10) 4 Number of Rests Taken 0 Reported Symptoms Increased Work of Breathing Post-test Oxygen Delivery Method Room Air Pulse Ox (%) 92 Pulse Rate (60-100 beats/min) 99 Dyspnea Magan Scale (0-10) 3 Reported Symptoms Increased Work of Breathing Full Laps Walked 14 Partial Lap, Number of Tiles Walked 27 Total Distance Walked (ft) 853 Interpretation Interpretation: The patient was noted to have a saturation of 93% on room air at rest. The patient then started ambulating and desaturated to 87% in the third minute. Patient was placed on 2 L nasal cannula and was able to complete the walk study. In all, the patient traveled 853 feet over the course of 6 minutes with the assistance of one break and supplemental oxygen. These findings are consistent with a respiratory limitation exercise tolerance. Recommendations Recommendations: No supplemental oxygen is indicated at rest, but patient should be using 2 L nasal cannula with any exertion.
== END ==
PROVIDERS: PCP Internal Medicine; Referring Provider Internal Medicine Critical Care Medicine; Visit Provider Internal Medicine Critical Care Medicine
DX: J44.9 Chronic obstructive pulmonary disease, unspecified (principal)
CPT/HCPCS: 94618

== ENCOUNTER 2021-05-19 12:23 | Emergency (ER) | payer MEDICARE, MEDICAID, SELFPAY ==
[2021-05-19 12:55] VITALS: BP 115/101; PULSE 71; RESP 20; TEMP 36.1; O2SAT 96; BMI 23.1
[2021-05-19 13:57] LABS: Bacteria 0 SEEN /hpf (None Seen); Mucous, Urine 0 SEEN /hpf (<or=2+); Squamous Epithelial Cells - UA 0 SEEN /hpf (0-5); White Blood Cells 0 SEEN /hpf (0-5)
[2021-05-19 14:02] LABS: Absolute Lymphocyte Count 10.23 X10^3/uL (0.83-4.51); Absolute Neutrophil Count 9.8 X10^3/uL (2.0-7.7); Basophil# 0.09 X10^3/uL; Basophil% 0.4 % (0-1); Lymphocyte # 10.23 X10^3/ul (0.83-4.51); Lymphocyte % 42.3 % (19-41); Mean Corp Hgb Conc 32.6 g/dL (32-36); Mean Corpuscular Hgb 27.5 pg (27.0-32.0); Mean Corpuscular Volume 84.3 fL (80-94); Mean Platelet Vol. 9.5 fl (6.2-12.0); Monocyte# 3.98 X10^3/uL; Monocyte% 16.5 % (0-10); NRBC Flagged by Analyzer 0 % (0-5); Neutrophil # 9.79 X10^3/uL (2.7-7.7); Neutrophil % 40.5 % (47-70); POSITIVE DIFFERENTIAL YES; POSITIVE MORPHOLOGY YES; Platelet Count 181 K/mm3 (150-450); RBC Distribution Width CV 15.9 % (11.6-14.6); RBC Distribution Width SD 49.7 fl (35.1-43.9); White Blood Count 24.2 K/mm3 (4.4-11.0)
[2021-05-19 14:04] LABS: Color, Urine Yellow (Yellow); Glucose, Dipstick Normal (Normal); Ketone-Dipstick Negative (Negative); Leukocyte Esterase-Dipstick Negative /ul (Negative); Nitrite-Dipstick Negative (Negative); Occult Blood-Urine 50 /ul (Negative); Protein-Dipstick 15 mg/dl (Negative); Specific Gravity, Urine 1.025 (1.002-1.030); Urine Bilirubin Dipstick Negative (Negative); Urine Clarity Clear (Clear); Urine Urobilinogen Normal (Normal)
[2021-05-19 14:05] LABS: Differential Indicated SCAN CRITERIA MET
[2021-05-19 14:13] LABS: Red Blood Cells-Urine 0-5 SEEN /hpf (0-5)
[2021-05-19 14:22] LABS: Anion Gap 8 (5-15); BUN 16 mg/dL (7-18); BUN/Creat Ratio 21.3 RATIO (10-20); Calcium,Total 9.1 mg/dL (8.5-10.1); Chloride 104 mmol/L (98-107); Creatinine, Serum 0.75 mg/dL (0.70-1.30); EST Glomerular Filtration Rate 110 mL/min (>60); Est Glom Filt Rate - Afr Amer 133 mL/min (>60); Glucose 146 mg/dL (74-106); Potassium 4.3 mmol/L (3.5-5.1); Sodium Level 138 mmol/L (136-145)
[2021-05-19 14:27] LABS: Atypical Lymphocyte 3+ %
--- NOTE | 2021-05-19 14:33 | CT_ITS ---
STUDY: CT ABDOMEN AND PELVIS WITHOUT CONTRAST REASON FOR EXAM: Male, 65 years old. Abdominal pain. Right upper quadrant pain. Nausea and vomiting. RADIATION DOSAGE (If Supplied By Facility): CTDIvol = ( 6.56 ) mGy, DLP = ( 308.11 ) mGycm TECHNIQUE: Transaxial images were obtained from the dome of the diaphragm to the symphysis pubis without oral contrast, and without intravenous contrast. Sagittal and coronal images were reconstructed. Individualized dose optimization techniques were used for this CT. COMPARISON: None. FINDINGS: Mild increased markings at the left lung base suggestive of atelectasis. The visualized portions of the heart are within normal limits. Normal liver. The gallbladder is distended. There is mild splenomegaly. Normal pancreas. Normal bilateral adrenal glands. Small bilateral parapelvic renal cysts. Normal visualized stomach. Normal small intestine. Normal colon. The appendix is visualized and appears normal. There is diffuse atherosclerotic calcification of the abdominal aorta, without a demonstrated aneurysm. Normal inferior vena cava. There is retroperitoneal lymphadenopathy with enlarged nodes greater than 10-15mm in the short axis. There is also evidence of a rounded soft tissue masses in the periportal region as well as in the mesentery suggestive of diffuse lymphadenopathy. There is also evidence of the lymphadenopathy in the pelvis as well as both groins. Normal urinary bladder. There is enlargement of the prostate gland. The prostate measures 4.6 times by 5.4 cm. Calcifications are seen within it. Normal abdominal wall. There are degenerative changes of the visualized lumbar spine. CT/Abdomen/Pelvis without Cont IMPRESSION: Extensive retroperitoneal and mesenteric as well as periportal lymphadenopathy. There is also evidence of pelvic lymphadenopathy as well as enlarged bilateral inguinal lymph nodes. Distended gallbladder. Correlation with ultrasound is recommended with the history of right upper quadrant pain. Electronically Signed: Justin Love MD at 15:15 EST , Service support ,
[2021-05-19 14:45] VITALS: BP 117/71; PULSE 93; RESP 20; O2SAT 95
[2021-05-19] MEDS: Morphine 4 MG/ML Syringe IV (15:27)
[2021-05-19] MEDS: Ondansetron 4 MG/2 ML Vial IV (15:27)
[2021-05-19 15:31] VITALS: BP 124/74; PULSE 77; RESP 26; O2SAT 94
--- NOTE | 2021-05-19 16:05 | US_ITS ---
STUDY: ABDOMINAL ULTRASOUND - RIGHT UPPER QUADRANT REASON FOR VISIT: Male, 65 years old. Abdominal pain. TECHNIQUE: Ultrasound evaluation of the right upper quadrant was performed with real-time and static quiroga-scale imaging. TECHNICAL QUALITY: Examination limited by bowel gas. COMPARISON: CT the abdomen and pelvis, 05/19/2021. FINDINGS: Liver: The liver measures 16.8 cm. There is normal echogenicity of the liver. The bile ducts are within normal limits. There is hepatic color flow. The direction of portal flow is hepatopetal. There is no demonstrated mass lesion. There are low-attenuation masses in the tsevan hepatis thought to correlate with lymphadenopathy seen on the CT. Gallbladder: There is a markedly distended gallbladder. The gallbladder wall measures 3 mm. There is a negative sonographic Haas''s sign. There is no pericholecystic fluid. There are no gallstones. There is a 2 mm polyp along the nondependent gallbladder wall. Common Bile Duct (C.B.D.): The common bile duct measures 6 mm. Pancreas: Normal size of the tendon by of the pancreas. The tail is obscured. There is normal echogenicity of the pancreas. There is no demonstrated pancreatic mass or cyst. Right Kidney: Normal size of the right kidney. The right kidney measures 11.8 cm. Normal renal cortex. The right cortex measures 1.6 cm. There is a 2.8 x 2.5 x 2.4 cm exophytic simple cyst in the mid kidney. Other smaller cysts are also noted There is no right hydronephrosis. US/Gallbladder IMPRESSION: 1. Limited study due to bowel gas. The pancreatic tail is not visualized. 2. Distended gallbladder with gallbladder polyp. There is no evidence of acute cholecystitis. 3. Right renal cysts. These appear simple and require no further follow-up. 4. Lymphadenopathy in the stevan hepatis. 5. Otherwise normal right upper quadrant abdominal ultrasound. Electronically Signed: Alex Lindsey DO at 17:12 EST Tel [phone], Service support ,
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
[2021-05-19 18:14] VITALS: BP 140/75; PULSE 88; RESP 24; O2SAT 96
[2021-05-20 13:09] LABS: Pathologist Review Reviewed
== END 2021-05-19 18:15 | disposition home or self-care (01) ==
PROVIDERS: Emergency Provider Emergency Medicine; PCP Internal Medicine
DX: R10.11 Right upper quadrant pain (principal); C91.10 Chronic lymphocytic leukemia of B-cell type not having achieved remission; I25.10 Atherosclerotic heart disease of native coronary artery without angina pectoris; I25.2 Old myocardial infarction; Z87.891 Personal history of nicotine dependence
CPT/HCPCS: 74176; 76705; 80048; 81001; 85025; 96374; 96375; 99285; J2405

== ENCOUNTER 2021-06-24 11:18 | Outpatient (CLI) | payer MEDICARE, MEDICAID, SELFPAY | END 2021-06-24 23:59 | disposition short-term general hospital (02) | PROVIDERS: PCP Internal Medicine; Visit Provider Physician Assistant | DX: U07.1 COVID-19 (principal) | CPT/HCPCS: 87635; U0003 ==

== ENCOUNTER 2021-06-24 18:53 | Emergency (ER) | payer MEDICARE, MEDICAID, SELFPAY ==
[2021-06-24] VITALS (7 sets, daily range): BP systolic 147–164; BP diastolic 71–92; PULSE 89–96; RESP 16–24; TEMP 36.6; O2SAT 93–97; BMI 23.2
--- NOTE | 2021-06-24 19:00 | RAD_ITS ---
STUDY: X-RAY CHEST REASON FOR EXAM: Male, 66 years old. CHEST PAIN WEAKNESS SOB TECHNIQUE: XR Chest 1 View COMPARISON: 03.22.21 FINDINGS: There is no demonstrated pleural abnormality. There is bilateral infiltrate. There are multiple metallic clips in the left axilla. This is consistent for a prior axillary dissection. Normal size heart. Normal mediastinum and celeste. Normal visualized pulmonary arteries. There is atherosclerotic calcification of the aortic arch with tortuosity. There are diffuse degenerative changes of the visualized thoracic spine. There is degenerative osteoarthritis of the bilateral shoulders. There is no demonstrated abnormality of the visualized soft tissue structures of the upper abdomen. RAD/Chest 1 View (Portable) IMPRESSION: Bilateral pneumonia. Electronically Signed: Hernan Cummings MD at 19:15 EST , Service support ,
[2021-06-24 20:18] LABS: Absolute Lymphocyte Count 61.37 X10^3/uL (0.83-4.51); Absolute Neutrophil Count 6.8 X10^3/uL (2.0-7.7); Basophil# 0.06 X10^3/uL; Basophil% 0.1 % (0-1); Eosinophil# 0.01 X10^3/uL; Hematocrit 40.8 % (40-54); Hemoglobin 12.2 g/dL (13.0-16.5); Lymphocyte # 61.37 X10^3/ul (0.83-4.51); Lymphocyte % 89.3 % (19-41); Mean Corp Hgb Conc 29.9 g/dL (32-36); Mean Corpuscular Hgb 26.2 pg (27.0-32.0); Mean Corpuscular Volume 87.7 fL (80-94); Mean Platelet Vol. 10.1 fl (6.2-12.0); Monocyte# 0.25 X10^3/uL; Monocyte% 0.4 % (0-10); NRBC Flagged by Analyzer 0 % (0-5); Neutrophil # 6.77 X10^3/uL (2.7-7.7); Neutrophil % 9.9 % (47-70); POSITIVE COUNT YES; POSITIVE DIFFERENTIAL YES; POSITIVE MORPHOLOGY YES; Platelet Count 195 K/mm3 (150-450); RBC Distribution Width CV 17.3 % (11.6-14.6); Red Blood Count 4.65 M/mm3 (4.6-6.2)
[2021-06-24 20:23] LABS: Differential Indicated SCAN CRITERIA MET; White Blood Count 68.7 K/mm3 (4.4-11.0)
[2021-06-24 20:38] LABS: Anion Gap 7 (5-15); BUN 17 mg/dL (7-18); BUN/Creat Ratio 25.6 RATIO (10-20); Calcium,Total 9.1 mg/dL (8.5-10.1); Chloride 103 mmol/L (98-107); Creatinine, Serum 0.66 mg/dL (0.70-1.30); EST Glomerular Filtration Rate 127 mL/min (>60); Est Glom Filt Rate - Afr Amer 154 mL/min (>60); Estimated Creatinine Clearance 69.35 ml/min; Glucose 108 mg/dL (74-106); Potassium 4.5 mmol/L (3.5-5.1); Sodium Level 138 mmol/L (136-145)
[2021-06-24 21:03] LABS: Atypical Lymphocyte 2+ %; Differential Comment SCANNED
[2021-06-24] MEDS: MethylPREDNISolone 125 MG/2 ML Vial IV (21:14)
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
[2021-06-24] MEDS: Ipratropium/Albuterol Sulfate 3 ML AMPUL.NEB INHALATION ×2 (21:36→21:48)
--- NOTE | 2021-06-24 22:01 | CPS ---
Additional Duoneb given to pt. in ER. He stated that he didn't get much of the first one due to a coughing spell.
[2021-06-26 10:01] LABS: Pathologist Review Reviewed
== END 2021-06-24 22:29 | disposition home or self-care (01) ==
PROVIDERS: Emergency Provider Emergency Medicine; PCP Internal Medicine; Visit Provider Emergency Medicine
DX: U07.1 COVID-19 (principal); J44.9 Chronic obstructive pulmonary disease, unspecified; J12.82 Pneumonia due to coronavirus disease 2019; I25.10 Atherosclerotic heart disease of native coronary artery without angina pectoris; I25.2 Old myocardial infarction; Z87.891 Personal history of nicotine dependence; Z95.5 Presence of coronary angioplasty implant and graft
CPT/HCPCS: 71045; 80048; 85025; 87426; 87635; 93005; 94640; 94760; 96374; 99251; 99285; A4216; G0463; U0003; U0005

== ENCOUNTER 2021-06-25 18:10 | Outpatient (CLI) | payer MEDICARE, MEDICAID, SELFPAY ==
[2021-06-25 18:31] VITALS: BP 129/71; PULSE 76; RESP 20; TEMP 36.8; O2SAT 97; BMI 23.2
[2021-06-25] MEDS: 0.9% Saline Lock 10 ML Syringe IV (18:36)
[2021-06-25 18:59] VITALS: BP 125/64; PULSE 76; RESP 16; TEMP 36.5; O2SAT 97
[2021-06-25 19:58] VITALS: BP 120/90; PULSE 69; RESP 16; TEMP 36.8; O2SAT 97
== END 2021-06-25 23:59 | disposition home or self-care (01) ==
LOC: MS3OUT 18:10 → MS3 18:11
PROVIDERS: PCP Internal Medicine; Visit Provider Nurse Practitioner Adult Health
DX: Z23 Encounter for immunization (principal); U07.1 COVID-19
CPT/HCPCS: J7050; M0243; A4216; Q0244

== ENCOUNTER 2021-07-03 12:17 | Inpatient (IN) | payer MEDICARE, MEDICAID, SELFPAY ==
[2021-07-03] VITALS (9 sets, daily range): BP systolic 109–128; BP diastolic 56–73; PULSE 82–90; RESP 14–26; TEMP 36.4–37.6; O2SAT 90–94; BMI 23.1; BMI 21.5
--- NOTE | 2021-07-03 12:48 | EKG12_ITS ---
Test Reason : SOB Blood Pressure : / mmHG Vent. Rate : 088 BPM Atrial Rate : 088 BPM P-R Int : 116 ms QRS Dur : 078 ms QT Int : 356 ms P-R-T Axes : 046 002 018 degrees QTc Int : 430 ms Normal sinus rhythm Low voltage QRS Inferior infarct , age undetermined Poor R wave progression Abnormal ECG Confirmed by PEYTON BUTT, ISRAEL ([id number]), legal editor SUSY HOLGUIN ([id number]) on 07/06/2021 11:04:45 AM Referred By: CARROLL Confirmed By:ISRAEL TODD MD
--- NOTE | 2021-07-03 12:49 | RAD_ITS ---
STUDY: X-RAY CHEST REASON FOR EXAM: Male, 66 years old. Cough TECHNIQUE: Single AP portable view of the chest. COMPARISON: Comparison is made with prior study dated 06/24/2021. FINDINGS: EKG electrodes are seen. Surgical clips are seen in the left axillary region. Hyperinflation. Progressive increasing markings at the lung bases suggestive of bibasilar infiltrates. There is a 1.8 cm x 2.2 cm nodule in the left upper lobe. Normal size heart. Normal mediastinum and celeste. Normal visualized pulmonary arteries. Normal visualized aortic arch and descending thoracic aorta. There are diffuse degenerative changes of the visualized thoracic spine. Normal visualized ribs, clavicles, and shoulders. There is no demonstrated abnormality of the visualized soft tissue structures of the upper abdomen. RAD/Chest 1 View (Portable) IMPRESSION: Progressive increased markings at the lung bases suggestive of bibasilar infiltrates. 2.2 cm x 1 point a TERRI nodule in the left upper lobe. Electronically Signed: Justin Love MD at 13:15 EST , Service support ,
[2021-07-03 12:58] LABS: Absolute Lymphocyte Count 55.46 X10^3/uL (0.83-4.51); Absolute Neutrophil Count 9.7 X10^3/uL (2.0-7.7); Basophil# 0.05 X10^3/uL; Basophil% 0.1 % (0-1); Hematocrit 40.6 % (40-54); Hemoglobin 12.3 g/dL (13.0-16.5); Lymphocyte # 55.46 X10^3/ul (0.83-4.51); Lymphocyte % 83.8 % (19-41); Mean Corp Hgb Conc 30.3 g/dL (32-36); Mean Corpuscular Hgb 25.7 pg (27.0-32.0); Mean Corpuscular Volume 84.8 fL (80-94); Monocyte% 0.3 % (0-10); NRBC Flagged by Analyzer 0 % (0-5); Neutrophil # 9.71 X10^3/uL (2.7-7.7); Neutrophil % 14.6 % (47-70); POSITIVE COUNT YES; POSITIVE DIFFERENTIAL YES; POSITIVE MORPHOLOGY YES; Platelet Count 348 K/mm3 (150-450); RBC Distribution Width SD 52.2 fl (35.1-43.9); Red Blood Count 4.79 M/mm3 (4.6-6.2)
[2021-07-03 13:02] LABS: Differential Indicated SCAN CRITERIA MET; White Blood Count 66.2 K/mm3 (4.4-11.0)
[2021-07-03 13:12] LABS: D-Dimer Quantitative (DVT/PE) 1.75 FEU/ug/m (0.27-0.49)
[2021-07-03 13:16] LABS: ALB/GLOB Ratio 0.6 RATIO (0.9-2.4); AST(SGOT) 27 U/L (15-37); Alanine Aminotransfer ALT/SGPT 32 U/L (16-61); Albumin, Serum 2.6 g/dL (3.2-5.0); Alkaline Phosphatase 114 U/L (45-117); Anion Gap 7 (5-15); BUN 17 mg/dL (7-18); BUN/Creat Ratio 27.5 RATIO (10-20); Chloride 101 mmol/L (98-107); Creatinine, Serum 0.62 mg/dL (0.70-1.30); EST Glomerular Filtration Rate 138 mL/min (>60); Est Glom Filt Rate - Afr Amer 167 mL/min (>60); Estimated Creatinine Clearance 69.35 ml/min; Globulin 4.5 g/dL (2.2-4.2); Glucose 102 mg/dL (74-106); Potassium 4.3 mmol/L (3.5-5.1); Protein, Total 7.1 g/dL (6.4-8.2); Sodium Level 136 mmol/L (136-145); Troponin-I HS 8 pg/mL (3.0-78.0)
[2021-07-03] MEDS: dexAMETHasone 10 MG/ML Vial 6 MG IV (13:20)
[2021-07-03 13:21] LABS: Lactic Acid 0.9 mmol/L (0.4-1.9)
[2021-07-03 13:29] LABS: Differential Comment SCANNED
[2021-07-03] MEDS: Ipratropium/Albuterol Sulfate 3 ML AMPUL.NEB INHALATION ×2 (14:16→20:00)
[2021-07-03] MEDS: Albuterol 2.5 MG/3 ML VIAL.NEB. INHALATION ×2 (14:16→14:17)
--- NOTE | 2021-07-03 14:31 | CT_ITS ---
EXAM: CT ANGIOGRAPHY CHEST WITHOUT AND WITH INTRAVENOUS CONTRAST CLINICAL INDICATION: hypoxia previously reported history of lymphoma. TECHNIQUE: Helically acquired angiography images were obtained of the chest without and with intravenous contrast. This CT exam was performed using one or more of the following dose reduction techniques: automated exposure control, adjustment of the mA and/or kV according to patient size, and/or use of iterative reconstruction technique. This report was created using [employer] report generation technology. MIP reconstructed images were created and reviewed. CONTRAST: IV 100mL [id number] COMPARISON: 09/26/2019, PET/CT 05/26/2021. FINDINGS: PULMONARY ARTERIES: Unremarkable. Normal in caliber. No evidence of pulmonary embolism. AORTA: Unremarkable. Normal in caliber. No evidence of dissection. GREAT VESSELS OF AORTIC ARCH: Unremarkable. Normal in caliber. No evidence of dissection. LUNGS AND PLEURAL SPACES: Multiple spiculated pulmonary nodules. Largest nodule, in the left upper lobe, measures 2.4 x 1.6 cm. Additional subcentimeter nodules in the left upper lobe. 0.9 cm cavitary nodule in the right upper lobe. Moderate interstitial disease in the lung bases, new compared to September 2019. Mild centrilobular emphysema in the upper lobes bilaterally. No pleural effusion or thickening. No pneumothorax. HEART: Unremarkable. Heart size is normal. No pericardial effusion. No signs of right heart strain, ratio of right ventricle to left ventricle measures less than 1. MEDIASTINUM: Mild mediastinal and bilateral hilar adenopathy, new compared to September 2019. Esophagus is unremarkable. No hiatal hernia. THYROID: Low-attenuation changes in the thyroid gland. BONES/JOINTS: Unremarkable. No suspicious lytic or blastic abnormality. CT/CTA Chest W/WO Contrast IMPRESSION: 1. Pulmonary nodules suspicious for metastatic disease. 2. New mediastinal adenopathy, concerning for tumor recurrence. 3. New interstitial disease in the lung bases. This may represent acute interstitial pneumonia versus lymphangitic spread of malignancy. Electronically Signed: Belia Ayala MD at 17:18 EST Tel , Service support ,
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
[2021-07-03] MEDS: DiphenhydrAMINE 50 MG/ML Syringe IV (15:09)
--- NOTE | 2021-07-03 18:26 | PCS.PANDOC ---
PANDEMIC DOCUMENTATION INITIATED: Date: 02/02/2021 Time: 190
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
[2021-07-03] MEDS: guaiFENesin 1,200 MG Tablet 1200 MG PO (20:42)
[2021-07-03] MEDS: Atorvastatin Calcium 80 MG Tablet PO (20:42)
[2021-07-03] MEDS: 0.9% Saline Lock 10 ML Syringe IV (20:42)
[2021-07-03] MEDS: Metoprolol(XL)Succ 50 MG Tablet PO (20:52)
[2021-07-04] VITALS (18 sets, daily range): BP systolic 98–121; BP diastolic 48–64; PULSE 63–89; RESP 16–23; TEMP 36.3–37.2; O2SAT 90–96
[2021-07-04] MEDS: 0.9% Saline Lock 10 ML Syringe IV ×5 (00:40→20:24)
[2021-07-04] MEDS: Ondansetron 4 MG/2 ML Vial IV ×4 (00:40→18:25)
[2021-07-04] MEDS: Albuterol 2.5 MG/3 ML VIAL.NEB. INHALATION (00:55)
[2021-07-04] MEDS: Ipratropium/Albuterol Sulfate 3 ML AMPUL.NEB INHALATION ×5 (07:16→23:20)
[2021-07-04] MEDS: Enoxaparin 40 MG/0.4 ML Syringe SC (08:47)
[2021-07-04] MEDS: Clopidogrel Bisulfate 75 MG Tablet PO (08:47)
[2021-07-04] MEDS: Allopurinol 300 MG Tablet PO (08:47)
[2021-07-04] MEDS: Aspirin E.C. 81 MG Tablet PO (08:48)
[2021-07-04] MEDS: Pantoprazole Sodium 40 MG Tablet PO (08:48)
[2021-07-04] MEDS: guaiFENesin 1,200 MG Tablet 1200 MG PO ×2 (08:48→20:25)
[2021-07-04] MEDS: Losartan Potassium 25 MG Tablet 12.5 MG PO (08:48)
--- NOTE | 2021-07-04 12:30 | CASEMGMT ---
SHANIKA SINGH Assessment: Initial transition planning/care coordination assessment. SHANIKA SINGH introduced self and role at [facility], pt voices understanding and consents to assessment. Pt is on 6L nc but able to speak in full sentences. Pt is A/Ox4 and answers all questions appropriately. Care providers, pharmacy, and demographics verified/updated. Presentation: Pt sent by PCP for continued SOB, COVID +, pt's sats low on home oxygen Admitting dx: COVID, COPD exac PCP: [place] Specialists: desire Ramirez; Janet, onc Preferred [facility]acy: [facility] Insurance: [employer] A/B, SHARATH Prescription Benefit: Yes Living Will/HPOA: Pt has LW/HPOA and is aware that they are on file at [facility]. Pt's daughter, Pat Robbins, is HPOA as pt's has some dementia. LNOK: Pat Robbins, daughter/HPOA Living Arrangements: Pt lives with in basement of daughter and her family's home and states no concerns at home. Pt is independent with ADL's. Transportation: Pt states daughter drives and states no transportation concerns. DME/HHC: Pt states has nebulizer and home oxygen 3L at bedtime thru [employer] and denies need for any further DME. Pt states no hx of HHC or SNF. Green sheet left on chart for increased home oxygen need. Pt states no concerns with going home at time of discharge. Pt is retired. Pt states quit smoking cigarettes and does not drink ETOH. Pt states no further concerns/needs. CM to follow for increased home oxygen need and any further discharge planning/needs. Advised pt to ask for CM if any further questions/concerns/needs arise, voices understanding. Pt Goal: Home Plan: Home. [place] SHANIKA SINGH
[2021-07-04] MEDS: IBRUTINIB 420 MG TABLET PO (12:41)
--- NOTE | 2021-07-04 15:17 | PN.HOSP_ITS ---
Subjective Subjective Patient was seen and examined today, he still feels fatigued, he is requiring 5 L of oxygen via nasal cannula to maintain his pulse ox of 90%. Patient denies any chest pain, fevers, or chills. Objective Data Objective Data Vital Signs: Vital Signs Temp Pulse Resp BP Pulse Ox 97.7 F L 87 20 H 111/63 94 07/04/21 13:48 07/04/21 14:30 07/04/21 14:30 07/04/21 13:48 07/04/21 14:33 Oxygen Flow Rate (L/min) 5 Oxygen Delivery Method Nasal Cannula Weight: 64.2 kg Body Mass Index (BMI) 21.5 Intake & Output: Intake and Output for Last 24 Hours 07/02/21 07/03/21 07/04/21 23:59 23:59 23:59 Intake Total 500 / 500 500 / 500 Output Total 575 / 575 Balance 500 / 225 -75 / -75 Medical Nutrition Assessment Dietitian: Malnutrition Criteria Met Start: 07/04/21 13:19 Freq: Status: Active Protocol: Document 07/04/21 13:20 RMA (Rec: 07/04/21 13:20 RMA [id number]) Nutrition Malnutrition Evidence of Malnutrition Exists Yes Malnutrition (severe): Acute Illness/Injury Evidenced By Suboptimal Energy Intake ( Severe),Weight Loss (Severe) Clinical Problem Acute Disease or Injury Related Malnutrition Etiology Severe Protein-Calorie Malnutrition in the context of acute illness related to inadequate oral intake/poor appetite Signs/Symptoms as evidenced by wt loss~6% x 2 weeks and Po meeting less than 50% estimated nutrition needs correctional captain x 2 weeks Status Active Problem Recommendation Dietitian Recommendations/Changes Continue liberal regular diet as ordered given signs of malnutrition. Will add 120ml ensure compact TID w/ meals for extra calories and protein as tolerated. Lab / Micro Data Result Diagrams: 07/03/21 12:50 07/03/21 12:50 Radiography Diagnostic Testing: Radiology Impression Chest CTA 07/03/21 14:31 IMPRESSION: 1. Pulmonary nodules suspicious for metastatic disease. 2. New mediastinal adenopathy, concerning for tumor recurrence. 3. New interstitial disease in the lung bases. This may represent acute interstitial pneumonia versus lymphangitic spread of malignancy. Electronically Signed: Belia Ayala MD at 17:18 EST Tel , Service support , Physical Exam Const alert, oriented x3, no apparent distress and healthy appearing General Appearance: cooperative, well kempt and well developed Orientation / Consciousness: awake, oriented to person, oriented to place and oriented to time HEENT normocephalic, head/scalp atraumatic and moist oral mucous membranes Head and Scalp: normocephalic Eyes PERRL, EOMs intact bilaterally and conjunctivae normal Neck nuchal rigidity, supple, no JVD, thyroid normal and no carotid bruits General: trachea midline Resp normal respiratory effort, no retractions, no use of accessory muscles and clear to auscultation bilaterally Auscultation: Negative for rales, rhonchi or wheezes Cardio regular rate, regular rhythm, S1 normal heart sound, S2 normal heart sound, no murmurs, no rub and no gallops GI normal to inspection, nondistended, normoactive bowel sounds, soft to palpation, non-tender and non-distended Extremity normal to inspection and no clubbing, cyanosis or edema Skin no rashes or lesions noted, no wounds and skin turgor normal General Skin Exam: no breakdown Neuro oriented x3, CN's II-XII intact bilaterally, no focal motor deficits and no sensory deficits noted Sensorium / Orientation: awake and alert Speech: speech normal Psych thought process normal and affect normal Assessment & Plan Assessment/Plan (1) COVID-19: PLAN: 1. Acute on chronic hypoxic respiratory failure secondary to ex acerbation of COPD and COVID-19 infection-continue with present treatment at this time, patient does not appear to have any expiratory wheezes today on auscultation of #2 acute exacerbation of COPD-patient is to remain on Solu-Medrol plus aerosol treatments #3 COVID-19 infection without visible pneumonia-supportive care will be offered #4 chronic lymphocytic leukemia-patient is on medication at home for this, it will be continued here #5 non-Hodgkin's lymphoma-patient follows up with oncology #6 coronary artery disease-patient is on medications at home, these will be continued #7 ischemic cardiomyopathy-again patient is on medication at home, and will be continued here #8 essential hypertension-patient is on losartan and metoprolol, they will be continued here #9 hyperlipidemia-patient is on atorvastatin, will be continued here #10 acute debility-patient is being seen by PT and OT Charges/Coding Visit Charges Inpatient E&M: 18924 Subs Hosp L2
[2021-07-04] MEDS: Metoprolol(XL)Succ 50 MG Tablet PO (20:24)
[2021-07-04] MEDS: Atorvastatin Calcium 80 MG Tablet PO (20:25)
[2021-07-05] VITALS (10 sets, daily range): BP systolic 119–133; BP diastolic 64–72; PULSE 16–86; RESP 16–24; TEMP 36.4–36.6; O2SAT 82–95
[2021-07-05] MEDS: Ipratropium/Albuterol Sulfate 3 ML AMPUL.NEB INHALATION ×4 (03:42→15:06)
[2021-07-05] MEDS: Ondansetron 4 MG/2 ML Vial IV ×2 (06:03→12:21)
[2021-07-05] MEDS: 0.9% Saline Lock 10 ML Syringe IV (06:04)
--- NOTE | 2021-07-05 08:20 | PCM.DC ---
Discharge Instructions Diet Discharge Diet: No restrictions Activity Discharge Activity: Return to Normal Activity Weight Bearing Status: Full weight bearing Additional Activity Instructions:: Quarantine for a total of 20 days after first COVID symptoms Follow Up Care Test Results: Test results from this visit will be discussed in further detail at your follow-up appointment, if applicable. Discharge Plan Admission Admit Date/Time: 07/03/21 17:06 Primary Reason for Your Visit: COVID-19 pneumonia Attending Provider: Rick Holguin Primary Care Provider: Hillary Patricia Instructions Patient Instructions: Coronavirus Disease 2019 (COVID-19): Caring for Yourself or Others Additional Instructions / Restrictions: Quarantine until 07/09/2021 Wear oxygen at 3 L at rest and when ambulating Discharge Orders/Prescriptions Prescriptions: New dexamethasone 2 mg tablet 6 mg PO DAILY Qty: 21 RF: 0 Continued atorvastatin 80 mg tablet 80 mg PO QHS Qty: 90 RF: 3 (DME) Blood Pressure Cuff 0 .Route .MEDSUPPLY Qty: 1 RF: 0 albuterol sulfate 90 mcg/actuation HFA aerosol inhaler 2 puff INHALATION Q6H PRN (Reason: shortness of breath or wheezing) 90 Days Qty: 8.5 RF: 3 clopidogrel 75 mg tablet 75 mg PO DAILY Qty: 90 RF: 3 albuterol sulfate [Ventolin HFA] 90 mcg/actuation HFA aerosol inhaler 2 puff inhalation Q4H PRN (Reason: shortness of breath or wheezing) Qty: 8.5 RF: 3 Mucinex 1,200 mg tablet extended release 12hr 1,200 mg PO BID Qty: 180 RF: 2 Imbruvica 420 mg tablet 420 mg PO DAILY RF: 0 loperamide 2 mg capsule 2 mg PO Q6H PRN (Reason: Diarrhea) RF: 0 allopurinol 300 mg tablet 300 mg PO DAILY Qty: 60 RF: 0 ondansetron 4 mg tablet,disintegrating 4 mg PO Q8H PRN (Reason: nausea and vomiting) Qty: 30 RF: 1 Daliresp 500 mcg tablet 500 mcg PO DAILY RF: 0 pantoprazole 40 mg tablet,delayed release (DR/EC) 40 mg PO DAILY Qty: 14 RF: 0 urea 20 % cream 1 applic topical BID Qty: 85 RF: 0 aspirin [Adult Aspirin Regimen] 81 mg tablet,delayed release (DR/EC) 81 mg PO DAILY Qty: 90 RF: 3 ipratropium-albuterol 0.5 mg-3 mg(2.5 mg base)/3 mL solution for nebulization 3 ml INHALATION Q4H PRN (Reason: shortness of breath or wheezing) 90 Days Qty: 180 RF: 3 metoprolol succinate 50 mg tablet extended release 24 hr 50 mg PO DAILY Qty: 90 RF: 4 losartan 25 mg tablet 12.5 mg PO DAILY Qty: 90 RF: 3 Discontinued prednisone 10 MG tablet 10 mg PO UD Qty: 33 RF: 0 Referrals / Follow Up: Hillary Patricia MD [Primary Care Provider] - In 1 Week Disposition Disposition (needs filled in before D/C Order can be placed): Home, Self Care
[2021-07-05] MEDS: Enoxaparin 40 MG/0.4 ML Syringe SC (09:37)
[2021-07-05] MEDS: Losartan Potassium 25 MG Tablet 12.5 MG PO (09:37)
[2021-07-05] MEDS: Pantoprazole Sodium 40 MG Tablet PO (09:37)
[2021-07-05] MEDS: Allopurinol 300 MG Tablet PO (09:37)
[2021-07-05] MEDS: Aspirin E.C. 81 MG Tablet PO (09:37)
[2021-07-05] MEDS: Clopidogrel Bisulfate 75 MG Tablet PO (09:37)
[2021-07-05] MEDS: guaiFENesin 1,200 MG Tablet 1200 MG PO (09:37)
[2021-07-05] MEDS: IBRUTINIB 420 MG TABLET PO (12:24)
--- NOTE | 2021-07-05 16:42 | PCM.DC.SUM ---
Providers Date of Admission: 07/03/21 Date of Discharge: 07/05/21 Primary Care Physician: Dr. Hillary Patricia MD Reason For Visit: COVID-19 PNEUMONIA, COPD EXACERBATION Diagnosis Discharge Diagnosis (1) COVID-19: Status: Acute Code(s): U07.1 - COVID-19 Plan: 1. Acute on chronic hypoxic respiratory failure secondary to exacerbation of COPD and COVID-19 infection #2 acute exacerbation of COPD #3 COVID-19 infection without visible pneumonia #4 chronic lymphocytic leukemia #5 non-Hodgkin's lymphoma #6 coronary artery disease #7 ischemic cardiomyopathy #8 essential hypertension #9 hyperlipidemia #10 acute debility #11 severe protein and caloric malnutrition in the context of acute illness related to inadequate oral intake and poor appetite as evidenced by weight loss approximately 6% x 2 weeks and p.o. intake meeting less than 50% of estimated nutritional needs x2 weeks-continue liberal regular diet as ordered and patient will be given 120 mL of Ensure compact 3 times daily with meals for extra calories and protein as Medications at Discharge Home Medications Blood Pressure Cuff #1 ea 07/21/20 atorvastatin 80 mg tablet 80 mg PO QHS #90 tab 07/21/20 albuterol sulfate 90 mcg/actuation aerosol inhaler 2 puff INHALATION Q6H PRN 90 Days #8.5 g 11/12/20 clopidogrel 75 mg tablet 75 mg PO DAILY #90 tab 11/12/20 aspirin 81 mg tablet,delayed release 81 mg PO DAILY #90 tab 02/25/21 Daliresp 500 mcg PO DAILY 03/22/21 guaifenesin 1,200 mg tablet, extended release 12 hr 1,200 mg PO BID #180 tab 03/26/21 albuterol sulfate 90 mcg/actuation aerosol inhaler 2 puff INHALATION Q4H PRN #8.5 g 04/08/21 ipratropium 0.5 mg-albuterol 3 mg (2.5 mg base)/3 mL nebulization soln 3 ml INHALATION Q4H PRN 90 Days #180 ml 05/04/21 metoprolol succinate 50 mg tablet,extended release 24 hr 50 mg PO DAILY #90 tab 05/12/21 pantoprazole 40 mg PO DAILY #14 tab 05/19/21 urea 1 applic TOPICAL BID #85 g 05/19/21 losartan 25 mg tablet 12.5 mg PO DAILY #90 tab 05/26/21 allopurinol 300 mg tablet 300 mg PO DAILY #60 tab 05/28/21 ondansetron 4 mg disintegrating tablet 4 mg PO Q8H PRN #30 tab 06/02/21 ibrutinib 420 mg tablet 420 mg PO DAILY 06/08/21 loperamide 2 mg capsule 2 mg PO Q6H PRN 06/08/21 dexamethasone 6 mg PO DAILY #21 tab 07/05/21 Hospital Course Operations None Procedures None Summary of Care Provided Minutes Spent on Discharge: 33 Hospital Course: 66-year-old white male presented to the emergency room at [facility] with a chief complaint of generalized weakness and shortness of breath, patient stated he started having COVID-19 symptomology around , he had a positive COVID test on 06/24/2021. Patient wears oxygen only at night at 3 L/min he has been coughing up thick clear phlegm he denies any chills or fever. Patient has been wearing oxygen at 3 L/min [id number] since June 20, 2021. Work-up in the ER included a CT of the chest which showed no evidence of pulmonary embolism but evidence of metastatic disease-patient has a known history of lymphoma and CLL. Patient had some infiltrates at the lung bases, white blood cell count was elevated at 66.2, patient's chemistry panel was unremarkable. On examination, patient had diffuse expiratory wheezes bilaterally. Patient required 3 L continuous oxygen via nasal cannula when he was in the emergency room. Patient was admitted to [place] [id number] for exacerbation of COPD along with COVID-19 pneumonia, his pulse ox was monitored, patient was placed on IV Solu-Medrol, over the next several days, patient's wheezing resolved On 07/05/2021, patient was seen and examined: On examination he appeared in good health and spirits. Vital signs as documented. Skin warm and dry and without overt rashes. Neck without JVD, neck was supple, trachea midline, thyroid was normal. Lungs clear bilaterally, normal air movement was noted. Heart exam notable for regular rhythm, normal sounds and absence of murmurs, rubs or gallops. Abdomen unremarkable and without evidence of organomegaly, masses, or abdominal aortic enlargement. Bowel sounds are present, abdomen is not distended. Extremities nonedematous, no cyanosis was noted, no clubbing was noted. Neuro: Cranial nerves II through XII are grossly intact, no focal motor deficits were noted, sensation to light touch and pinprick intact, motor exam 5/5 throughout. Psych: Patient is alert and oriented x3, he does not appear anxious or depressed, he does not appear agitated. Patient appears stable for discharge home on 07/05/2021, he required 3 L of oxygen by nasal cannula while ambulating and at rest, patient was expected to use the oxygen inside his home and outside his home as prescribed. Weight / BMI Weight Weight: 64.2 kg Body Mass Index (BMI) 21.5 ABG / Lab / Microbiology Data Result Diagrams: 07/03/21 12:50 07/03/21 12:50 D/C Instructions Discharge Diet: No restrictions Weight Bearing Status: Full weight bearing Additional Activity Instructions: Quarantine for a total of 20 days after first COVID symptoms Meaningful Use Info Meaningful Use Diagnoses (Choose all that apply): None applicable Discharge Plan Admission Admit Date/Time: 07/03/21 17:06 Primary Reason for Your Visit: COVID-19 pneumonia Attending Provider: Rick Holguin Primary Care Provider: Hillary Patricia Instructions Patient Instructions: Coronavirus Disease 2019 (COVID-19): Caring for Yourself or Others Additional Instructions / Restrictions: Quarantine until 07/09/2021 Wear oxygen at 3 L at rest and when ambulating Discharge Orders/Prescriptions Prescriptions: New dexamethasone 2 mg tablet 6 mg PO DAILY Qty: 21 RF: 0 Continued atorvastatin 80 mg tablet 80 mg PO QHS Qty: 90 RF: 3 (DME) Blood Pressure Cuff 0 .Route .MEDSUPPLY Qty: 1 RF: 0 albuterol sulfate 90 mcg/actuation HFA aerosol inhaler 2 puff INHALATION Q6H PRN (Reason: shortness of breath or wheezing) 90 Days Qty: 8.5 RF: 3 clopidogrel 75 mg tablet 75 mg PO DAILY Qty: 90 RF: 3 albuterol sulfate [Ventolin HFA] 90 mcg/actuation HFA aerosol inhaler 2 puff inhalation Q4H PRN (Reason: shortness of breath or wheezing) Qty: 8.5 RF: 3 Mucinex 1,200 mg tablet extended release 12hr 1,200 mg PO BID Qty: 180 RF: 2 Imbruvica 420 mg tablet 420 mg PO DAILY RF: 0 loperamide 2 mg capsule 2 mg PO Q6H PRN (Reason: Diarrhea) RF: 0 allopurinol 300 mg tablet 300 mg PO DAILY Qty: 60 RF: 0 ondansetron 4 mg tablet,disintegrating 4 mg PO Q8H PRN (Reason: nausea and vomiting) Qty: 30 RF: 1 Daliresp 500 mcg tablet 500 mcg PO DAILY RF: 0 pantoprazole 40 mg tablet,delayed release (DR/EC) 40 mg PO DAILY Qty: 14 RF: 0 urea 20 % cream 1 applic topical BID Qty: 85 RF: 0 aspirin [Adult Aspirin Regimen] 81 mg tablet,delayed release (DR/EC) 81 mg PO DAILY Qty: 90 RF: 3 ipratropium-albuterol 0.5 mg-3 mg(2.5 mg base)/3 mL solution for nebulization 3 ml INHALATION Q4H PRN (Reason: shortness of breath or wheezing) 90 Days Qty: 180 RF: 3 metoprolol succinate 50 mg tablet extended release 24 hr 50 mg PO DAILY Qty: 90 RF: 4 losartan 25 mg tablet 12.5 mg PO DAILY Qty: 90 RF: 3 Discontinued prednisone 10 MG tablet 10 mg PO UD Qty: 33 RF: 0 Referrals / Follow Up: Hillary Patricia MD [Primary Care Provider] - In 1 Week Disposition Disposition (needs filled in before D/C Order can be placed): Home, Self Care Charges/Coding Visit Charges Inpatient E&M: 43974 Disch Hosp
[2021-07-06 14:01] LABS: Pathologist Review Reviewed
== END 2021-07-05 15:41 | disposition home or self-care (01) | DRG 190 ==
LOC: ED 17:17 → MS3 17:41
PROVIDERS: Admitting Provider Internal Medicine; Emergency Provider Student in an Organized Health Care Education/Training Program; PCP Internal Medicine; Visit Provider Internal Medicine
DX: J44.1 Chronic obstructive pulmonary disease with (acute) exacerbation (principal); J96.21 Acute and chronic respiratory failure with hypoxia; U07.1 COVID-19; E43 Unspecified severe protein-calorie malnutrition; C85.90 Non-Hodgkin lymphoma, unspecified, unspecified site; C91.10 Chronic lymphocytic leukemia of B-cell type not having achieved remission; I50.42 Chronic combined systolic (congestive) and diastolic (congestive) heart failure; I11.0 Hypertensive heart disease with heart failure; J44.0 Chronic obstructive pulmonary disease with (acute) lower respiratory infection; I25.5 Ischemic cardiomyopathy; I25.10 Atherosclerotic heart disease of native coronary artery without angina pectoris; E78.5 Hyperlipidemia, unspecified; Z87.891 Personal history of nicotine dependence; Z79.02 Long term (current) use of antithrombotics/antiplatelets; Z86.16 Personal history of COVID-19; R53.81 Other malaise; Z68.21 Body mass index [BMI] 21.0-21.9, adult
CPT/HCPCS: 71045; 71275; 80053; 83605; 84484; 85025; 85379; 93005; 94640; 94762; 97162; 97165; 97802; 99251; 99285; J7040; Q9967; A4216; G0463; J2405

== ENCOUNTER 2021-07-09 17:24 | Emergency (ER) | payer MEDICARE, MEDICAID, SELFPAY ==
[2021-07-09 17:25] VITALS: BP 148/78; PULSE 89; RESP 27; TEMP 36.3; O2SAT 96; BMI 22.1
[2021-07-09 17:31] VITALS: BP 146/81; PULSE 91; RESP 25; TEMP 36.3; O2SAT 96
[2021-07-09 17:38] VITALS: BP 151/81; PULSE 105; RESP 18; O2SAT 93
--- NOTE | 2021-07-09 17:38 | CT_ITS ---
We are attempting to reach an attending provider to discuss findings. An addendum with communication details will be sent when the communication is complete. EXAM: CT HEAD WITHOUT INTRAVENOUS CONTRAST CLINICAL INDICATION: Neuro deficit, acute, stroke suspected TECHNIQUE: Multiple axial images were obtained of the head without intravenous contrast. This CT exam was performed using one or more of the following dose reduction techniques: automated exposure control, adjustment of the mA and/or kV according to patient size, and/or use of iterative reconstruction technique. This report was created using [employer] technology. COMPARISON: None. FINDINGS: BRAIN AND EXTRA-AXIAL SPACES: There is a mass in the left temporal lobe measuring 13 mm. There is overlying cerebral edema. This concerning for metastatic focus. No intra- or extra-axial hemorrhage. No evidence of acute infarct. There is preservation of the quiroga/white matter interface. Posterior fossa structures are unremarkable. Ventricles are appropriate for age. No hydrocephalus. Basal cisterns are patent. BONES/JOINTS: Unremarkable. No discrete lytic or blastic abnormalities. SINUSES: There is sinus disease. MASTOID AIR CELLS: Unremarkable. Clear. ORBITS: Visualized globes, extraocular muscles, optic nerves and retrobulbar fat appear unremarkable. CT/STROKE Brain/Head without Cont IMPRESSION: There is a mass in the left temporal lobe measuring 13 mm. There is overlying cerebral edema. This concerning for metastatic focus. Cf called to DR Cano. Electronically Signed: Hernan Cummings MD at 17:57 EST , Service support ,
--- NOTE | 2021-07-09 17:38 | EKG12_ITS ---
Test Reason : STROKE TEAM Blood Pressure : / mmHG Vent. Rate : 098 BPM Atrial Rate : 098 BPM P-R Int : 120 ms QRS Dur : 080 ms QT Int : 356 ms P-R-T Axes : 038 010 053 degrees QTc Int : 454 ms Normal sinus rhythm Low voltage QRS Borderline ECG Confirmed by PEYTON BUTT, ISRAEL ([id number]), commissioning editor SUSY HOLGUIN ([id number]) on 07/10/2021 9:37:26 AM Referred By: BRETT Confirmed By:ISRAEL TODD MD
[2021-07-09 17:40] VITALS: BP 155/85; PULSE 91; RESP 18; TEMP 36.3; O2SAT 95
--- NOTE | 2021-07-09 17:40 | CT_ITS ---
We are attempting to reach an attending provider to discuss findings. An addendum with communication details will be sent when the communication is complete. EXAM: CT ANGIOGRAPHY HEAD AND NECK WITH INTRAVENOUS CONTRAST CLINICAL INDICATION: altered mental status TECHNIQUE: [place]/head and neck CT angiography protocol performed with intravenous contrast. This CT exam was performed using one or more of the following dose reduction techniques: automated exposure control, adjustment of the mA and/or kV according to patient size, and/or use of iterative reconstruction technique. This report was created using [employer] report generation technology. MIP reconstructed images were created and reviewed. CONTRAST: IV 75mL [id number] COMPARISON: None. FINDINGS: HEAD: RIGHT ANTERIOR CEREBRAL ARTERY: Unremarkable. No significant stenosis at the visualized segments. Anterior communicating artery is present. No aneurysm. RIGHT MIDDLE CEREBRAL ARTERY: Unremarkable. No significant stenosis at the visualized segments. No aneurysm. RIGHT POSTERIOR CEREBRAL ARTERY: Unremarkable. No occlusion or significant stenosis. No aneurysm. LEFT ANTERIOR CEREBRAL ARTERY: Unremarkable. No significant stenosis at the visualized segments. No aneurysm. LEFT MIDDLE CEREBRAL ARTERY: Unremarkable. No significant stenosis at the visualized segments. No aneurysm. LEFT POSTERIOR CEREBRAL ARTERY: Unremarkable. No occlusion or significant stenosis. No aneurysm. BASILAR ARTERY: Unremarkable. No significant stenosis. No aneurysm. GREAT VESSELS OF AORTIC ARCH: Unremarkable. Normal anatomy, patent. OTHER VASCULATURE: No vascular malformation. BRAIN AND EXTRA-AXIAL SPACES: There is a ring enhancing mass in the left temporal lobe measuring 13 mm. There is overlying cerebral edema. This concerning for metastatic focus given the patients history of known CLL. SINUSES: There is sinus disease. NECK: RIGHT COMMON CAROTID ARTERY: Unremarkable. No significant stenosis. No dissection or occlusion. RIGHT INTERNAL CAROTID ARTERY: There is calcified plaque formation of the right cavernous carotid artery, with a mild stenosis (less than 50%). There is calcified plaque formation of the left cavernous carotid artery, with a mild stenosis (less than 50%). ALL ABOVE CRITERIA BY NASCET. No dissection or occlusion. RIGHT EXTERNAL CAROTID ARTERY: Unremarkable. No occlusion. RIGHT VERTEBRAL ARTERY: Unremarkable. No significant stenosis. No dissection or occlusion. LEFT COMMON CAROTID ARTERY: Unremarkable. No significant stenosis. No dissection or occlusion. LEFT INTERNAL CAROTID ARTERY: There is mild atherosclerotic plaque formation of the origin of the right and left internal carotid artery with less than 50% cross sectional diameter stenosis. ALL ABOVE CRITERIA BY NASCET. LEFT EXTERNAL CAROTID ARTERY: Unremarkable. No occlusion. LEFT VERTEBRAL ARTERY: Unremarkable. No significant stenosis. No dissection or occlusion. LUNG APICES: There are multiple lesions noted in the lung apices which are likely related to metastatic disease. There are scattered blebs and bullae. This can be seen in pulmonary emphysema. MEDIASTINUM: Diffuse partially visualized mediastinal adenopathy. Supraclavicular adenopathy and adenopathy throughout the neck concerning for neoplasm. The patient has a known history of CLL. SOFT TISSUES: Unremarkable. OTHER FINDINGS: There are degenerative findings of the cervical spine. CAROTID STENOSIS REFERENCE USING NASCET CRITERIA: % ICA stenosis = (1 - narrowest ICA diameter/diameter of distal cervical ICA) x 100. Mild - <50% stenosis. Moderate - 50-69% stenosis. Severe - 70-94% stenosis. Near occlusion - 95-99% stenosis. Occluded - 100% stenosis. CT/CTA Head AND Neck W/ Contrast IMPRESSION: 1. There is a ring enhancing mass in the left temporal lobe measuring 13 mm. There is overlying cerebral edema. This concerning for metastatic focus given the patients history of known CLL. 2. There are multiple lesions noted in the lung apices which are likely related to metastatic disease. 3. Diffuse partially visualized mediastinal adenopathy. Supraclavicular adenopathy and adenopathy throughout the neck concerning for neoplasm. The patient has a known history of CLL. 4. There is mild atherosclerotic plaque formation of the origin of the right and left internal carotid artery with less than 50% cross sectional diameter stenosis. ALL ABOVE CRITERIA BY NASCET. 5. There is calcified plaque formation of the right cavernous carotid artery, with a mild stenosis (less than 50%). There is calcified plaque formation of the left cavernous carotid artery, with a mild stenosis (less than 50%). ALL ABOVE CRITERIA BY NASCET. CF called. Electronically Signed: Hernan Cummings MD at 18:02 EST , Service support ,
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
[2021-07-09] MEDS: DiphenhydrAMINE 50 MG/ML Syringe 25 MG IV (17:53)
[2021-07-09] MEDS: MethylPREDNISolone 125 MG/2 ML Vial IV (17:53)
--- NOTE | 2021-07-09 17:53 | CM.ED ---
SW Note Referral Reason: Stroke alert SW responded to stroke alert. No family present. SW remains available. Shonna DUMONT
[2021-07-09 17:55] LABS: Absolute Lymphocyte Count 46.95 X10^3/uL (0.83-4.51); Absolute Neutrophil Count 12.3 X10^3/uL (2.0-7.7); Basophil# 0.01 X10^3/uL; Hematocrit 39.3 % (40-54); Lymphocyte # 46.95 X10^3/ul (0.83-4.51); Lymphocyte % 76.1 % (19-41); Mean Corp Hgb Conc 30.5 g/dL (32-36); Mean Corpuscular Hgb 26.3 pg (27.0-32.0); Mean Corpuscular Volume 86.2 fL (80-94); Mean Platelet Vol. 11.1 fl (6.2-12.0); Monocyte# 0.85 X10^3/uL; Monocyte% 1.4 % (0-10); NRBC Flagged by Analyzer 0 % (0-5); Neutrophil # 12.29 X10^3/uL (2.7-7.7); Neutrophil % 19.9 % (47-70); POSITIVE COUNT YES; POSITIVE DIFFERENTIAL YES; POSITIVE MORPHOLOGY YES; Platelet Count 342 K/mm3 (150-450); RBC Distribution Width CV 16.9 % (11.6-14.6); RBC Distribution Width SD 52.8 fl (35.1-43.9); Red Blood Count 4.56 M/mm3 (4.6-6.2)
[2021-07-09 18:02] LABS: Differential Indicated SCAN CRITERIA MET; White Blood Count 61.7 K/mm3 (4.4-11.0)
[2021-07-09] MEDS: LORazepam 2 MG/ML Syringe IV (18:06)
--- NOTE | 2021-07-09 18:09 | ED.RN ---
Per Daughter Fartun. Pt does not want to be intubated for any circumstance.
--- NOTE | 2021-07-09 18:10 | CASEMGMT ---
SHANIKA SINGH placed telephone call to patient's daughter Pat Robbins to provide update on patient condition and plan of care. Patient's daughter informed of patient's seizure activity in emergency department and plan to transfer to [facility] in [place]. Patient's daughter emphasizes that patient does not wish to be intubated under any circumstances. When SHANIKA SINGH asked about intubation in the case of prolonged seizure and unable to protect airway, patient's daughter again stressed that patient would never want a tube down his throat and his dying wish is that he would never be intubated. Myrna VOSS and Dr. Cano made aware. SHANIKA Dhillon CM
[2021-07-09] MEDS: levETIRAcetam IV 1,000 MG/100 ML BAG 400 MG IV (18:11)
[2021-07-09 18:20] LABS: International Normalized Ratio 1.2; Partial Thromboplast Time 25.1 Seconds (24.1-36.2); Prothrombin Time (Protime)PT. 14.4 SECONDS (11.7-14.9)
[2021-07-09 18:23] LABS: Anion Gap 5 (5-15); BUN 17 mg/dL (7-18); BUN/Creat Ratio 23.8 RATIO (10-20); Calcium,Total 8.8 mg/dL (8.5-10.1); Chloride 102 mmol/L (98-107); Creatinine, Serum 0.71 mg/dL (0.70-1.30); EST Glomerular Filtration Rate 117 mL/min (>60); Est Glom Filt Rate - Afr Amer 141 mL/min (>60); Estimated Creatinine Clearance 66.92 ml/min; Glucose 174 mg/dL (74-106); Sodium Level 137 mmol/L (136-145); Troponin-I HS 8 pg/mL (3.0-78.0)
--- NOTE | 2021-07-09 18:28 | RAD_ITS ---
STUDY: X-RAY CHEST REASON FOR EXAM: Male, 66 years old. CHEST PAIN Neuro deficit, acute, stroke suspected TECHNIQUE: XR Chest 1 View COMPARISON: 07.03.21 FINDINGS: There are scattered blebs and bullae. This can be seen in pulmonary emphysema. There are multiple metallic clips in the left axilla. This is consistent for a prior axillary dissection. There are mastectomy changes noted. 39 mm cavitary lesion in the left upper lobe. Scattered bilateral pulmonary nodules concerning for metastatic disease. Normal size heart. Normal mediastinum and [place]. Normal visualized pulmonary arteries. There is atherosclerotic calcification of the aortic arch with tortuosity. There are diffuse degenerative changes of the visualized thoracic spine. There is degenerative osteoarthritis of the bilateral shoulders. There is no demonstrated abnormality of the visualized soft tissue structures of the upper abdomen. RAD/Chest 1 View IMPRESSION: 39 mm cavitary lesion in the left upper lobe. Scattered bilateral pulmonary nodules concerning for metastatic disease. Electronically Signed: Hernan Cummings MD at 18:59 EST , Service support ,
[2021-07-09 18:33] VITALS: BP 147/79; PULSE 95; PULSE 98; RESP 25; RESP 27; TEMP 36.6; O2SAT 94
[2021-07-09 18:52] VITALS: BP 99/61; PULSE 89; RESP 27; O2SAT 93
--- NOTE | 2021-07-09 19:10 | ED.RN ---
UNABLE TO GET THROUGH TO ED TO CALL RN TO RN REPORT. CALLED STAT LINE AND STATES NO NEED FOR NURSE TO NURSE. VERY POLITE. REPORT WAS GIVEN TO EMS.
[2021-07-13 09:27] LABS: Pathologist Review Reviewed
== END 2021-07-09 19:12 | disposition short-term general hospital (02) ==
PROVIDERS: Emergency Provider Student in an Organized Health Care Education/Training Program; PCP Internal Medicine; Visit Provider Student in an Organized Health Care Education/Training Program
DX: G93.89 Other specified disorders of brain (principal); C79.9 Secondary malignant neoplasm of unspecified site; J44.9 Chronic obstructive pulmonary disease, unspecified; I11.0 Hypertensive heart disease with heart failure; I50.42 Chronic combined systolic (congestive) and diastolic (congestive) heart failure; R56.9 Unspecified convulsions; I25.5 Ischemic cardiomyopathy; E78.5 Hyperlipidemia, unspecified; I25.10 Atherosclerotic heart disease of native coronary artery without angina pectoris; R47.9 Unspecified speech disturbances; I25.2 Old myocardial infarction; Z95.5 Presence of coronary angioplasty implant and graft; Z87.891 Personal history of nicotine dependence; Z86.16 Personal history of COVID-19; Z99.81 Dependence on supplemental oxygen; Z86.73 Personal history of transient ischemic attack (TIA), and cerebral infarction without residual deficits; Z79.82 Long term (current) use of aspirin; Z79.899 Other long term (current) drug therapy
CPT/HCPCS: 70450; 70496; 70498; 71045; 80048; 84484; 85025; 85610; 85730; 93005; 96365; 96375; 99285; J7030; Q9967; A4216